=== PATIENT | male | born 1950 | race Caucasian/White ===

== ENCOUNTER 2017-02-12 20:37 | Emergency (ER) | payer BC, OTHER ==
[~2017-02-12] VITALS: Ht 185.4 cm; Wt 145.1 kg
[2017-02-12 20:40] VITALS: TEMP 36.6; Ht 185.4 cm; Wt 145.1 kg
[2017-02-12] MEDS ORDERED: CLIN300C2 PO (21:12)
[2017-02-12] MEDS ORDERED: MAGN400T6 PO (21:12)
[2017-02-12] MEDS ORDERED: PRAM1TAB47 PO (21:12)
[2017-02-12] MEDS ORDERED: SILD100T PO (21:12)
[2017-02-12] MEDS ORDERED: AMLO-114 PO (21:12)
[2017-02-12] MEDS ORDERED: CARB25TA12 PO (21:12)
[2017-02-12] MEDS ORDERED: AMAN100T2 PO (21:12)
[2017-02-12] MEDS ORDERED: HYZ/10015 PO (21:12)
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
[2017-02-12 22:52] VITALS: BP 138/77; PULSE 78; O2SAT 98
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
== END 2017-02-12 22:52 | disposition home or self-care (01) ==
LOC: C.EDB 20:39
DX: S00.83XA Contusion of other part of head, initial encounter (principal); S60.512A Abrasion of left hand, initial encounter; S50.312A Abrasion of left elbow, initial encounter; V43.52XA Car driver injured in collision with other type car in traffic accident, initial encounter; I10 Essential (primary) hypertension; G20 Parkinson's disease

== ENCOUNTER → 2017-02-13 | Outpatient (CLI) | payer BC, OTHER ==
[~2017-02-13] MED LIST: AMAN100T2 PO; AMLO-114 PO; CARB25TA12 PO; CLIN300C2 PO; HYZ/10015 PO; MAGN400T6 PO; PRAM1TAB47 PO; SILD100T PO
== END | disposition home or self-care (01) ==
LOC: C.RDSM 10:54
PROVIDERS: ATTEND Physical Medicine & Rehabilitation Sports Medicine
DX: M79.642 Pain in left hand (principal)

== ENCOUNTER → 2017-04-08 | Outpatient (CLI) | payer OTHER ==
[2017-04-08 12:36] LABS: BASO % 0.4 %; BASO ABS # 0.03 K/uL (0-0.2); EOS % 0.7 %; EOS ABS # 0.05 K/uL (0-0.5); HEMATOCRIT 46.4 % (42-52); IG# 0.01 K/uL (0.00-0.02); LYMPH % 22.9 %; LYMPH ABS # 1.76 K/uL (1.2-3.4); MEAN CELL VOLUME 88.5 fL (80-100); MEAN CORPUSCULAR HEMOGLOBIN 30.5 pg (25-34); MEAN CORPUSCULAR HGB CONC 34.5 g/dl (32-36); MEAN PLATELET VOLUME 9.9 fL (7.4-10.4); MONO % 9.3 %; MONO ABS # 0.71 K/uL (0.11-0.59); NEUT % 66.6 %; NEUT ABS # 5.11 K/uL (1.4-6.5); PLATELET COUNT 250 K/uL (130-400); RED CELL DISTRIBUTION WIDTH CV 13.9 % (11.5-14.5); RED CELL DISTRIBUTION WIDTH SD 45.2 fL (36.4-46.3); WHITE BLOOD COUNT 7.67 K/uL (4.8-10.8)
[2017-04-08 13:14] LABS: ALBUMIN 3.9 gm/dl (3.4-5.0); BLOOD UREA NITROGEN 14 mg/dl (7-18); CALCIUM 9.4 mg/dl (8.5-10.1); CARBON DIOXIDE 27 mmol/L (21-32); CREATININE 0.95 mg/dl (0.60-1.40); GLUCOSE 88 mg/dl (70-99); POTASSIUM 3.6 mmol/L (3.5-5.1); SODIUM 138 mmol/L (136-145)
[2017-04-08 13:17] LABS: ALKALINE PHOSPHATASE 71 U/L (45-117); ALT/SGPT 12 U/L (12-78); AST/SGOT 17 U/L (15-37); TOTAL PROTEIN 7.8 gm/dl (6.4-8.2)
== END | disposition home or self-care (01) ==
LOC: C.LABMFLN 10:45
PROVIDERS: ATTEND Family Medicine
DX: I10 Essential (primary) hypertension (principal); E83.42 Hypomagnesemia; E66.9 Obesity, unspecified

== ENCOUNTER → 2017-04-10 | Outpatient (CLI) | payer OTHER ==
--- NOTE | 2017-04-10 11:05 | DIAGNOSTIC IMAGING REPORT ---
C-SPINE ROUTINE 4 OR 5 VIEWS HISTORY: 66 years-old Male M54.2 Cervical pain (neck)[id number] acute neck pain with limited range of motion. Numbness of the right neck COMPARISON: None available TECHNIQUE: 5 views of the cervical spine FINDINGS: The seventh vertebral body is obscured by soft tissue on the lateral view. There is moderate intervertebral disc space narrowing at the C4-C5 and C5-C6 levels with multilevel endplate spurring and mild facet arthrosis. There is straightening of the normal cervical lordosis. Degenerative changes appear to result in at least mild right-sided bony foraminal stenosis at C5-C6. No acute fracture or subluxation identified. No prevertebral soft tissue swelling. Imaged lung apices appear unremarkable. IMPRESSION: 1. No acute fracture or subluxation. 2. Straightening of the cervical lordosis likely secondary to positioning or paraspinal muscle spasm. 3. Degenerative changes as above with at least mild right-sided bony foraminal stenosis at C5-C6. The above report was generated using voice recognition software. It may contain grammatical, syntax or spelling errors. Electronically signed by: Gregorio Carrillo M.D. 04/10/2017 11:04 AM Dictated Date/Time: 04/10/2017 11:01 AM
== END | disposition home or self-care (01) ==
LOC: C.RAD 10:20
PROVIDERS: ATTEND Family Medicine
DX: M54.2 Cervicalgia (principal)

== ENCOUNTER 2018-06-29 06:01 | Inpatient (IN) ==
--- NOTE | 2018-06-09 15:22 | PAT Medication Instructions ---
Medication Instructions Date of Service June 09, 2018 Home Medications amantadine HCl 100 mg PO TID amlodipine 2.5 mg PO QAM carbidopa-levodopa [Sinemet] 3 tab PO TID losartan-hydrochlorothiazide 1 tab PO QAM pramipexole 0.125 mg PO TID STOP taking 24 hours before surgery pramipexole 0.125 mg PO TID DO NOT take the morning of surgery losartan-hydrochlorothiazide 1 tab PO QAM Take morning of surgery With a small sip of water, OTHERWISE NOTHING TO EAT OR DRINK AFTER MIDNIGHT: amantadine HCl 100 mg PO TID amlodipine 2.5 mg PO QAM carbidopa-levodopa [Sinemet] 3 tab PO TID Take evening before surgery amantadine HCl 100 mg PO TID carbidopa-levodopa [Sinemet] 3 tab PO TID Other Notes If you have any questions please call us at [phone] or [phone] or [phone] or [phone]
--- NOTE | 2018-06-10 11:29 | Anesthesiology Consultation ---
Date of Service June 10, 2018 Assessment & Plan (1) Encounter for pre-operative examination: Chart Review Chart Review: Acceptable Risk for Surgery and Patient seen in Pre Admission Testing Teaching & Discussion Pre-Anesthesia Teaching/Discussion Notes: Instructed NPO after midnight before surgery,except medications with 15 cc of water. Medication instructions provided according to the PAT guidelines. History Surgery Operation Date: 06/29/18 07:30 Proposed Procedures p Robotic Laparoscopic Assisted Radical Retropubic Prostatectomy, Possible Open, Possible Pelvic Lymph Node Dissection, Possible Suprapubic Tube Placement - Eren Holland MD Height/Weight Height: 6 ft 1 in Weight: 142.9 kg Allergies Allergy/AdvReac Type Severity Reaction Status Date / Time No Known Allergies Allergy Verified 06/04/18 14:56 Medications Home Medications Medication Instructions Recorded Confirmed Last Taken amantadine HCl 100 mg PO TID 06/04/18 06/04/18 Unknown amlodipine 2.5 mg PO QAM 06/04/18 06/04/18 Unknown carbidopa-levodopa [Sinemet] 3 tab PO TID 06/04/18 06/04/18 Unknown losartan-hydrochlorothiazide 1 tab PO QAM 06/04/18 06/04/18 Unknown pramipexole 0.125 mg PO TID 06/04/18 06/04/18 Unknown Past Medical History Medical History Cervical disc disease Constipation Hearing deficit Hypertension Morbid obesity Osteoarthritis Parkinson's disease Prostate cancer DX 04/2018 Past Surgical History Surgical History History of knee replacement B/L Past Anesthesia History No Hx of Anesthesia Complications and No Family Hx of Anesthesia Complications History of PONV No Motion Sickness Screening History of Motion Sickness: No Social History Smoking Status: Never smoker Do You Dip or Chew Tobacco: Yes (1/4 CAN/DAY- ADVISED NOT TO CHEW AM DOS) Hx Alcohol Use: No Hx Substance Use: No Exercise / Class Metabolic Activity II 4-5 Yardwork/Stairs/Walk up hill Review of Systems Patient denies chest pain, shortness of breath, dyspnea on exertion, cough, wheezing, palpitations. Physical Exam Vital Signs VITALS BP 125/80 P 66 TEMP 97.7 SP02 95%RA RESP 16 PHYSICAL Full neck and c-spine range of motion Full TMJ range of motion. TMD 3 finger breaths Mallampati Score 3 Dentition: missing sides Lungs: clear throughout to auscultation Cardiac: regular rate and rhythm, no murmurs noted Spine: normal Carotid arteries: negative bruit Extremities: no edema Testing Electrocardiogram Date: 06/10/18 SR with PAC's at 66bpm. Chest X-Ray Date: 06/10/18 Findings: + NAD Small left basilar linear densities favor scarring or atelectasis. Laboratory Results 06/10/18 11:42 06/10/18 11:42 Blood Type A Negative 06/10/18 11:42 Antibody Screen NEGATIVE 06/10/18 11:42 Urine Color Yellow 06/10/18 11:42 Urine Appearance Clear (Clear) 06/10/18 11:42 Urine pH 6.5 (4.5-7.5) 06/10/18 11:42 Ur Specific [place] 1.024 (1.000-1.030) 06/10/18 11:42 Urine Protein Negative (Negative) 06/10/18 11:42 Urine Glucose (UA) Negative (Negative) 06/10/18 11:42 Urine Ketones Trace (Negative) H 06/10/18 11:42 Urine Nitrite Negative (Negative) 06/10/18 11:42 Ur Leukocyte Esterase Negative (Negative) 06/10/18 11:42
[2018-06-10 12:42] LABS: Basophils # (auto) 0.02 K/uL (0-0.2); Basophils % (auto) 0.2 %; Eosinophils # (auto) 0.04 K/uL (0-0.5); Eosinophils % (auto) 0.5 %; Hematocrit (blood only) 45.7 % (42-52); Hemoglobin 15.7 g/dL (14.0-18.0); Immature Granulocytes # (auto) 0.02 K/uL (0.00-0.02); Immature Granulocytes % (auto) 0.2 %; Lymphocytes # (auto) 1.71 K/uL (1.2-3.4); Lymphocytes % (auto) 19.5 %; Mean Corpuscular Hgb Conc 34.4 g/dL (32-36); Mean Corpuscular Volume 88.7 fL (80-100); Mean Platelet Volume 10.4 fL (7.4-10.4); Monocytes # (auto) 0.91 K/uL (0.11-0.59); Monocytes % (auto) 10.4 %; Neutrophils # (auto) 6.06 K/uL (1.4-6.5); Neutrophils % (auto) 69.2 %; Platelet Count 242 K/uL (130-400); RDW Coefficient of Variation 13.9 % (11.5-14.5); RDW Standard Deviation 45.2 fL (36.4-46.3); Red Blood Count 5.15 M/uL (4.7-6.1); White Blood Count 8.76 K/uL (4.8-10.8)
[2018-06-10 12:48] LABS: BUN Creatinine Ratio 19.2 (10-20); Calcium 9.6 mg/dl (8.5-10.1); Creatinine Clr Calc Pharmacy 103.3 ml/min; Est GFR (African American) 84.9; Est GFR (Non-African American) 73.3; Potassium 3.9 mmol/L (3.5-5.1)
[2018-06-10 12:49] LABS: Appearance Urine Clear (Clear); Bilirubin Urine Negative (Negative); Blood Urine Negative (Negative); Color Urine Yellow; Glucose Urine UA Negative (Negative); Ketones Urine Trace (Negative); Leukocyte Esterase Urine Negative (Negative); Nitrite Urine Negative (Negative); Protein Urine Negative (Negative); Specific Gravity Urine 1.024 (1.000-1.030); Urobilinogen Urine Negative (Negative); pH Urine 6.5 (4.5-7.5)
--- NOTE | 2018-06-10 13:04 | XRay Report ---
XR chest Pre-admission PA/Lat HISTORY: Preop. COMPARISON: Chest 02/12/2017. FINDINGS: Small left basilar linear densities favor scarring or atelectasis. The lungs are otherwise clear. No pleural effusions. No pneumothorax. The heart is normal in size. IMPRESSION: No acute process. Electronically signed by: Wesley Gibbs M.D. 06/10/2018 1:02 PM
[~2018-06-29 06:01] MED LIST changes: -AMAN100T2 PO; -AMLO-114 PO; -CARB25TA12 PO; +CEFAZOLIN 3000MG 65 ML IV SCH; -CLIN300C2 PO; +HEPARIN SOD 5,000 UNIT/0.5 ML VIAL SQ SCH; -HYZ/10015 PO; +LR 15ML/HR IV SCH; -MAGN400T6 PO; -PRAM1TAB47 PO; -SILD100T PO
--- OUTSIDE RECORDS SUMMARY | 2018-06-29 06:05 | External Medical Summary | Continuity of Care Document ---
:1950 Author Name Iraida Garcia, Provider Address Unavailable Unavailable , Care Team Providers Name Role Phone Dionte Oliveira DO Unavailable [email or web address] DIONTE OLIVEIRA Unavailable Unavailable Unavailable Unavailable Unavailable Problems Prostate cancer (185) (C61) HTN (hypertension) (401.9) (I10) Obesity (278.00) (E66.9) Hypomagnesemia (275.2) (E83.42) Right hip pain (719.45) (M25.551) Cervical pain (neck) (723.1) (M54.2) Hypokalemia (276.8) (E87.6) Dysplastic nevus (216.9) (D23.9) Skin cancer (173.90) (C44.90) Tobacco use disorder (305.1) (F17.200) Palpitations (785.1) (R00.2) Venous reflux (459.81) (I87.2) Tremor (781.0) (R25.1) Parkinson's disease (332.0) (G20) Osteoarthritis (715.90) (M19.90) Lumbar disc disease (722.93) (M51.9) History of knee replacement (V43.65) (Z96.659) Hearing difficulty (389.9) (H91.90) Elevated bilirubin (277.4) (R17) Cervical disc disease (722.91) (M50.90) Constipation (564.00) (K59.00) Elevated PSA (790.93) (R97.20) Allergies and Adverse Reactions No Known Drug Allergies (Allergy) Medications Losartan Potassium-HCTZ 100-25 MG Oral T ablet; TAKE 1 TABLET BY MOUTH ONCE A DAY DO Dionte Oliveira Start: 04-May-2018 Quantity: 30 Refills: 5 Carbidopa-Levodopa 25-100 MG Oral Tablet; TAKE 3 TABLET 3 ti mes daily Start: 07-Apr-2017 Refills: 0 Pramipexole Dihydrochloride 0.5 MG Oral Tablet; TAKE 1 TABLE T 3 TIMES DAILY. Start: 07-Apr-2017 Refills: 0 Amantadine HCl - 100 MG Oral Tablet; 1 tab twice a day Start: 07-Apr-2017 Refills: 0 amLODIPine Besylate 2.5 MG Oral Tablet; TAKE 1 TABLET BY MOUTH EVERY DAY DO Dionte Oliveira Start: 11-Feb-2018 Quantity: 30 Refills: 5 Procedures NM Bone Scan whole body Date: 13-May-2018 History of knee replacement Status: Comp leted Immunizations Fluzone High-Dose Intramuscular Suspension On: 10-Nov-2017 Lot #: [id number], SANOFI PASTEUR Family History Father Family history of cardiac disorder (V17.49) (Z82.49) Status: Active Family history of hypertension (V17.49) (Z82.49) Status: Act phuong Family history of myocardial infarction (V17.3) (Z82.49) Sta tus: Active Social History - Smoking Status Never smoker Plan of Treatment Planned Encounters Appointment; Dionte Oliveira DO Start: 22-Jul-2018 13:30 Reques t Planned Observations Planned Goals not documented Results CBC With DIFF Laboratory: [facility] [address] [place] [address] tel: 10-Jun-2018 11:42 WBC 8.76 K/uL Range: 4.8-10.8 K/u L RBC 5.15 {M/uL} Range: 4.7-6.1 M/uL HEMOGLOBIN 15.7 g/dL Range: 14.0-18.0 g /dL HEMATOCRIT 45.7 % Range: 42-52 % MCV 88.7 fL Range: 80-100 fL MCH 30.5 pg Range: 25-34 pg MEAN CORPUSCULAR HGB CONC 34.4 Range: 3 2-36 g/dL g/dL RED CELL DISTRIBUTION WIDTH SD Range: 3 6.4-46.3 fL 45.2 fL RED CELL DISTRIBUTION WIDTH CV Range: 1 1.5-14.5 % 13.9 % PLATELET COUNT 242 K/uL Range: 130-400 K/uL MEAN PLATELET VOLUME 10.4 fL Range: 7.4 -10.4 fL NEUT % 69.2 % Range: % LYMPH % 19.5 % Range: % MONO % 10.4 % Range: % EOS % 0.5 % Range: % BASO % 0.2 % Range: % IG% 0.2 % Range: % Comments: IG paramet er reflects the combination of Metas, Myelos andPromyelocytes. Neutrophils (Auto) 6.06 K/uL Range: 1. 4-6.5 K/uL LYMPH ABS # 1.71 K/uL Range: 1.2-3.4 K/ uL MONO ABS # 0.91 K/uL (above high Range: 0.11-0.59 K/uL threshold) EOS ABS # 0.04 K/uL Range: 0-0.5 K/uL BASO ABS # 0.02 K/uL Range: 0-0.2 K/uL IG# 0.02 K/uL Range: 0.00-0.02 K/ uL Basic Metabolic Panel Laboratory: [facility] [address] [facility] [address] tel: 10-Jun-2018 11:42 SODIUM 138 mmol/L Range: 136-145 mmol /L POTASSIUM 3.9 mmol/L Range: 3.5-5.1 mmo l/L CHLORIDE 105 mmol/L Range: 98-107 mmol/ L CARBON DIOXIDE 31 mmol/L Range: 21-32 m mol/L ANION GAP 2.0 (below low Range: 3-11 threshold) BLOOD UREA NITROGEN 20 mg/dl Range: 7-1 8 mg/dl (above high threshold) CREATININE 1.06 mg/dl Range: 0.6-1.4 mg /dl Estimated Creatinine Clearance Range: m l/min 103.3 ml/min Comments: Est. Creat inine Clearance (Mod Cockcroft-Gault) for pharmacydosing purposes. Estimated GFR () Comment s: Units: ml/min per 84.9 1.73 meters squaredT he estimated GFR (CKD-E PI equation) has not be en validatedfor inpatie nt settings and may not be an accurate reflectiono f renal function in critical ly ill patients or those withrapidly changing renal function (e.g. VIMAL). Estimated GFR (Non- Comments: Uni ts: ml/min per Mexican) 73.3 1.73 meters squaredT he estimated GFR (CKD-E PI equation) has not be en validatedfor inpatie nt settings and may not be an accurate reflectiono f renal function in critical ly ill patients or those withrapidly changing renal function (e.g. VIMAL). BUN/CREATININE RATIO 19.2 Range: 10-20 GLUCOSE 82 mg/dl Range: 70-99 mg/dl CALCIUM 9.6 mg/dl Range: 8.5-10.1 mg/ dl Urine rflx Microscopic Laboratory: [facility] [address]: [address] [facility] [address] tel: 10-Jun-2018 11:42 Urine Color Yellow Urine Appearance Clear Range: Clear Urine Specific [place] 1.024 Range: 1.0 00-1.030 Urine Ph 6.5 Range: 4.5-7.5 Urine Protein(Dipstick) Negative Range: Negative Urine Glucose(Dipstick) Negative Range: Negative Urine Ketones Trace (Abnormal) Range: N egative Urine Bilirubin Negative Range: Negativ e URINE BLOOD HGB Negative Range: Negativ e Urobilinogen Negative Range: Negative Nitrite Urine Negative Range: Negative Urine Leukocyte Esterase Negative Range: Negative X-Ray Chest Preadm Laboratory: [facility] Diagnostic Testing Imaging [address] [facility] 10-Jun-2018 13:01 X-Ray Chest Preadm Testing (CXRPRE) [facility], [place] [phone] XRay Report Patient: ARELI EDWARDS Admit Date: MR#: [id number] Address1: [address] [place] [address] Acct ID:[id number] Address2: Date: 1950 [facility] [place] [address] Age: 67 Location: [facility] Sex: M Room/Bed: Att Phy: Viktor Holland MD Diagnos is: Prostate Cancer Tiffanie Phy: Dionte Oliveira MD Service Date: Fam Phy: Interpreting Phy: Wesley earl MD Admit Phy: Ordering Phy: Viktor Holland MD cc: XR chest Pre-admission PA/Lat HISTORY: Preop. COMPARISON: Chest 02/12/2017. FINDINGS: Small left basilar linear densities favor scarring or atelectasis. The lungs are otherwise clear. No pleural effusions. No pneumothorax. The heart is normal in size. IMPRESSION: No acute process. Electronically signed by: Wesley Gibbs M.D. 06/10/2018 1:02 PM Dictated: 06/10/18 1301 Transcribed: 06/10/18 1301 Urine Culture 10-Jun-2018 11:42 URINE CULTURE CATH ORDERED PROCEDURE : Urine Culture; Speciment : Urine,Clean Catch Urine Culture : No growth - less than 1,000 colonies/mL. Encounters Appointment; Viktor Holland M.D. 31-May-2018 9:50 Encounter Diagnosis: Problem not documented Appointment; Viktor Holland M.D. 14-May-2018 13:40 Encounter Diagnosis: Problem not documented Appointment; Kelechi Fisher M.D. 13-May-2018 14:20 Encounter Diagnosis: Problem not documented Appointment; Kelechi Fisher M.D. 06-May-2018 11:20 Encounter Diagnosis: Problem not documented Appointment; Urology, US probe only 06-May-2018 11:20 Encounter Diagnosis: Problem not documented Appointment; Urology, Room 8 06-May-2018 11:10 Encounter Diagnosis: Problem not documented Appointment; Kelechi Fisher M.D. 24-Mar-2018 13:40 Encounter Diagnosis: Problem not documented Appointment; Dionte Oliveira DO 16-Mar-2018 13:00 Encounter Diagnosis: Problem not documented Appointment; Dionte Oliveira DO 10-Nov-2017 13:00 Encounter Diagnosis: Problem not documented Appointment; Dionte Oliveira DO 11-Aug-2017 13:00 Encounter Diagnosis: Problem not documented Appointment; Dionte Oliveira DO 08-Apr-2017 9:30 Encounter Diagnosis: Problem not documented Appointment; Dionte Oliveira DO 22-Jul-2018 13:30 Encounter Diagnosis: Problem not documented
--- NOTE | 2018-06-29 07:02 | History & Physical Bridge Note ---
Date of Service June 29, 2018 History & Physical Bridge Note I have examined the patient, reviewed the History & Physical and in the interval since the performance of the History & Physical I have noted the following changes of clinical significance: no changes noted
[2018-06-29] MEDS ORDERED: BUPIVACAINE 0.5 % 5 MG/1 ML MPF 30ML VIAL ONE (07:15)
[2018-06-29] MEDS ORDERED: MIDAZOLAM HCL 1 MG/ML 2ML VIAL ONE (07:18)
[2018-06-29] MEDS ORDERED: PROPOFOL IV EMULSION 10 MG/ML 20 ML VIAL IV ONE (07:18)
[2018-06-29] MEDS ORDERED: DEXAMETHASONE SOD INJ 4 MG/ML VIAL ONE (07:18)
[2018-06-29] MEDS ORDERED: fentaNYL citrate 100 MCG/2 ML VIAL ONE ×2 (07:18→08:37)
[2018-06-29] MEDS ORDERED: NEOSTIGMINE METHYLSULFATE 5 MG/5 ML SYR ONE (07:18)
[2018-06-29] MEDS ORDERED: GLYCOPYRROLATE 0.2 MG/ML VIAL ONE (07:18)
[2018-06-29] MEDS ORDERED: ONDANSETRON INJ 2 MG/ML 2 ML VIAL ONE (07:18)
[2018-06-29] MEDS ORDERED: LIDOCAINE HCL 2% 2 ML VIAL/AMP(20MG/ML) INFIL ONE (07:18)
[2018-06-29] MEDS ORDERED: BELLADONNA/OPIUM SUPP 60 MG SUPP PR ONE (07:19)
[2018-06-29] MEDS ORDERED: HYDROmorphone INJ 2 MG/ML SYR/VIAL ONE (08:37)
[2018-06-29] MEDS ORDERED: BELLADONNA/OPIUM SUPP 60 MG SUPP PR PRN (10:06)
[2018-06-29] MEDS ORDERED: CISATRACURIUM BESYLATE IV SOLN 2 MG/ML 10 ML VIAL IV ONE (10:53)
[2018-06-29] MEDS ORDERED: FLOSEAL HEMOSTATIC MATRIX 10ML TOP ONE (12:08)
[2018-06-29] MEDS ORDERED: PROMETHAZINE HCL 12.5 MG in SODIUM CHLORIDE 0.9% 50 ML IV PRN (12:22)
[2018-06-29] MEDS ORDERED: HYDROmorphone INJ 1 MG/ML SYRINGE IV PRN (12:22)
[2018-06-29] MEDS ORDERED: LABETALOL HCL IV 5 MG/ML 20ML IV PRN (12:22)
[2018-06-29] MEDS ORDERED: FLUMAZENIL 0.1 MG/1 ML 10 ML VIAL IV PRN (12:22)
[2018-06-29] MEDS ORDERED: ATROPINE SULFATE 0.1 MG/ML 10ML SYR IV PRN (12:22)
[2018-06-29] MEDS ORDERED: ONDANSETRON INJ 2 MG/ML 2 ML VIAL IV PRN ×2 (12:22→14:17)
[2018-06-29] MEDS ORDERED: ePHEDrine sulfate 50 MG/ML AMP IV PRN (12:22)
[2018-06-29] MEDS ORDERED: NALOXONE HCL 0.4 MG/1 ML VIAL/CARP IV PRN (12:22)
--- NOTE | 2018-06-29 12:57 | Operative Report ---
Post Operative Report Pre & Post Diagnosis Operation Date: 06/29/18 07:45 Pre-Op Diagnosis: Prostate Cancer Post-Op Diagnosis: Prostate Cancer Procedure Operation Date: 06/29/18 07:45 Actual Procedures p Robotic Assisted Laparoscopic Prostatectomy, Pelvic Lymph Node Dissection(Not Applicable); lysis of adhesions- Eren Holland MD Surgeon Viktor Holland MD [employer] Laborer Vickie Snyder Estimated Blood Loss 150 Findings Consistent with Post-Op Diagnosis Specimens 1. periprostatic fat 2. R pelvic lymph nodes (frozen and permanent) 3. L pelvic lymph nodes 4. prostate and seminal vesicles 5. apex of prostate (left) Description of Procedure The patient was identified in the preoperative holding area, appropriate informed consents were reviewed and completed, and he was transported to the operating suite. Subcutaneous heparin was administered in the pre-operative holding area. Upon arrival in the operating suite, he received appropriate antibiotics and general anesthesia. He was positioned in dorsal lithotomy, a B&O suppository was inserted after digital rectal exam, and he was prepped and draped in standard fashion. A Page catheter was inserted in the sterile field. A Veress needle was passed per umbilicus with uniform insufflation of the abdomen to 15mmHg. He was placed in steep Trendelenburg position. A periumbilical incision was then made to accommodate a 12mm Visiport with 10mm 0degree laparoscope. Inspection of the abdomen was carried out, and there was no evidence of traumatic entry or injury secondary to the Veress needle. After confirming a clear anterior abdominal wall, ports were subsequently placed in standard robotic prostatectomy fashion without incident. Of note, he has fairly extensive adhesive disease within the deep pelvis, walling off the pouch of Lang. To begin the robotic portion of the case, I began by performing a robotic lysis of adhesion, choosing to incise all adhesions sharply with minimal to no use of cautery. I was able to begin on the left lateral aspect of the descending colon/sigmoid, and progressed down towards the pelvis. I worked for approximately 35 to 40 minutes and did not entirely visualize the true pouch of Lang, but freed enough space to be able to perform the remainder of the surgery. Of note, I did not perform a posterior dissection secondary to the adhesive disease, and rn internal medicine perform a traditional anterior dissection of the bladder and prostate. The medial umbilical ligaments were then controlled with bipolar electrocautery just inferior to the umbilicus. Following cauterization, they were divided utilizing monopolar cautery. A peritoneal incision was carried from this location to the medial aspect of the internal inguinal rings bilaterally with care to avoid opening through the ring. This incision was concluded when the vas deferens was reached. Dissection of the bladder and prostate off of the posterior aspect of the pubic arch was completed allowing full visualization of the prostate. The fat overlying the prostate was removed en bloc and passed off the table as a specimen labeled "periprostatic fat". The endopelvic fascia was cleared during this portion of the procedure, and subsequently opened - first on the right and then the left. The incision through the endopelvic fascia began near the prostate-bladder junction and was carried to the apex with extreme care to preserve all lateral levator musculature as well as the periurethral musculature and sphincter complex. The puboprostatic ligaments were thinned slightly bilaterally before placing a 0-Vicryl figure of 8 stitch around the DVC. The lymph node dissection was then conducted. External iliac vessels were identified on the pelvic side wall. The packet of fat and lymphatic tissue that resides just under the iliac vein was elevated and off of the vein with a split and roll technique. The packet was dissected laterally to the c ircumflex vein and distally to the obturator nerve which was preserved. The proximal aspect of the packet was carried towards the bifurcation of the iliac vessels. A combination of monopolar and bipolar cautery were used to assist with control. Clips were placed at the proximal and distal aspects of the packet prior to transection. After completing the dissection on both sides, the packets were collected and passed off of the table as specimens labeled "pelvic lymph nodes". Of note, given his preoperative pathology and some relatively firm nodes on the right, I elected to send one node (right side) for frozen section analysis. Results ultimately were relayed as benign lymph node - no cancer and in turn I did not extend my lymph node dissection further. My attention then returned to the prostate, with identification of the bladder neck aided by gentle traction on the Page catheter and lateral to medial pressure at the presumed level of the bladder neck with the robotic instruments. An anterior cystotomy was made, the Page balloon deflated and the catheter guided through the incision to allow anterior retraction. I attempted to preserve maximal bladder neck musculature as I circumferentially dissected around the bladder neck. After incision through the posterior aspect of the mucosa, the dissection was carried through detrusor muscle until the bilateral ampullae of the vasa were identified. I cleared a length of 3-4cm before transecting the vasa and then circumferentially dissecting both SV's. An incision in the lateral prostatic fascia was then made bilaterally to facilitate control of the vascular pedicles. The pedicles were each controlled with a series of Weck clips. The neurovascular bundles were identified with a cautious approach to nerve preservation, particularly on the patient's left. The apical attachments of the prostate were remaining at that stage. The DVC was divided with bipolar electrocautery. Shamika-prostatic tissue incised with sharp dissection and monopolar cautery. Maximal urethral length was preserved before dividing the urethra sharply. The prostate was entirely freed at that point, and collected in an EndoCatch bag before being moved out of the field of vision. Hemostasis was confirmed and anastomosis of the bladder and urethra was completed utilizing a double armed V- Lock stitch. A new Page catheter was inserted and the anastomosis tested with irrigation. There was no evidence of leak. FloSeal coagulant was placed around the anastomosis. The robot was undocked, the specimen extracted through expansion of the shamika- umbilical camera port. The fascia was closed with a series of 0-PDS figure of 8 stitches. The right office clerk assistant port was closed in two layers - with a figure of 8 0-Vicryl to reapproximate the fascia followed by 4-0 Monocryl to close the skin. Monocryl was used to close all other skin incisions. All wounds were dressed with Dermabond. The case was concluded and the patient taken to the PACU in stable condition. Vickie Snyder assisted throughout the surgery from incision to closure. I attest to the content of the Intraoperative Record and any orders documented therein. Any exceptions are noted below.
[2018-06-29 13:29] LABS: BUN Creatinine Ratio 13.4 (10-20); Calcium 8.5 mg/dl (8.5-10.1); Creatinine Clr Calc Pharmacy 86.9 ml/min; Est GFR (Non-African American) 61.2; Potassium 3.5 mmol/L (3.5-5.1)
--- NOTE | 2018-06-29 13:41 | Anesthesiology Progress Note ---
Date of Service June 29, 2018 Anesthesia Post Procedure Vital Signs Vital Signs: Temp Pulse Pulse Resp BP Pulse Ox 06/29/18 13:35 81 16 120/68 95 06/29/18 13:25 36.4 C L 82 15 111/82 93 06/29/18 13:15 78 14 109/68 95 06/29/18 13:05 73 11 L 96/62 L 98 06/29/18 12:55 77 11 L 121/56 L 97 06/29/18 12:45 36.8 C 76 14 110/57 L 93 06/29/18 06:34 36.7 C 72 18 111/87 96 Transfer of Care Handoff Completed per policy Notes Mental Status: alert / awake / arousable Patient Amnestic to Procedure: Yes Nausea / Vomiting: adequately controlled Pain: adequately controlled Airway Patency, RR, SpO2: stable & adequate BP & HR: stable & adequate Hydration State: stable & adequate Anesthetic Complications: no major complications apparent
[2018-06-29 13:58] LABS: Eosinophils # (auto) 0.01 K/uL (0-0.5); Eosinophils % (auto) 0.1 %; Hematocrit (blood only) 44.3 % (42-52); Hemoglobin 14.9 g/dL (14.0-18.0); Immature Granulocytes # (auto) 0.03 K/uL (0.00-0.02); Immature Granulocytes % (auto) 0.2 %; Lymphocytes # (auto) 0.46 K/uL (1.2-3.4); Lymphocytes % (auto) 3.8 %; Mean Platelet Volume 10.1 fL (7.4-10.4); Monocytes % (auto) 0.8 %; Neutrophils # (auto) 11.49 K/uL (1.4-6.5); Neutrophils % (auto) 95.1 %; Platelet Count 234 K/uL (130-400); RDW Standard Deviation 45.6 fL (36.4-46.3); Red Blood Count 4.98 M/uL (4.7-6.1); White Blood Count 12.09 K/uL (4.8-10.8)
[2018-06-29 14:02] LABS: Mean Corpuscular Hgb Conc 33.6 g/dL (32-36)
[2018-06-29] MEDS ORDERED: OXYCODONE HCL IR 5 MG TAB (IMMEDIATE RELEASE) PO PRN ×2 (14:17)
[2018-06-29] MEDS ORDERED: MoRPHine SULFATE 4 MG/ML 1 ML CARP\\VIAL IV PRN (14:17)
[2018-06-29] MEDS ORDERED: ACETAMINOPHEN 1,000 MG/100 ML VIAL IV PRN (14:17)
[2018-06-29] MEDS: LACTATED RINGER'S 1,000 ML IV SCH ×2 (15:58→19:44)
[2018-06-29] MEDS: CEFAZOLIN 2000MG 2,000 MG/15 ML SYR IV SCH ×2 (16:35→23:30)
[2018-06-29] MEDS: AMANTADINE HCL 100 MG CAPSULE PO SCH ×2 (16:35→20:50)
[2018-06-29] MEDS: CARBIDOPA/LEVODOPA 25/100MG TAB PO SCH ×2 (16:36→20:51)
[2018-06-29] MEDS: PRAMIPEXOLE DIHYDROCHLO 0.25 MG TAB PO SCH ×2 (16:36→20:49)
[2018-06-29 17:02] LABS: Prothrombin Time 10.3 Seconds (9.0-12.0)
[2018-06-29] MEDS: FAMOTIDINE 20 MG in SYRINGE 3 ML IV SCH (17:55)
[2018-06-29] MEDS: DOCUSATE SODIUM 100 MG CAP PO SCH (20:49)
[2018-06-29] MEDS: HEPARIN SOD 5,000 UNIT/0.5 ML VIAL SQ SCH (20:53)
[2018-06-30] MEDS: LACTATED RINGER'S 1,000 ML IV SCH (03:24)
[2018-06-30] MEDS: FAMOTIDINE 20 MG in SYRINGE 3 ML IV SCH (05:26)
[2018-06-30 07:43] LABS: Hematocrit (blood only) 41.9 % (42-52); Hemoglobin 14.5 g/dL (14.0-18.0); Immature Granulocytes # (auto) 0.04 K/uL (0.00-0.02); Immature Granulocytes % (auto) 0.3 %; Lymphocytes # (auto) 1.08 K/uL (1.2-3.4); Mean Corpuscular Hgb Conc 34.6 g/dL (32-36); Mean Platelet Volume 9.8 fL (7.4-10.4); Monocytes # (auto) 0.99 K/uL (0.11-0.59); Monocytes % (auto) 8.2 %; Neutrophils % (auto) 82.5 %; Platelet Count 239 K/uL (130-400); RDW Coefficient of Variation 14.2 % (11.5-14.5); RDW Standard Deviation 46.2 fL (36.4-46.3); Red Blood Count 4.71 M/uL (4.7-6.1); White Blood Count 12.01 K/uL (4.8-10.8)
[2018-06-30] MEDS: DOCUSATE SODIUM 100 MG CAP PO SCH (08:18)
[2018-06-30] MEDS: AMANTADINE HCL 100 MG CAPSULE PO SCH (08:18)
[2018-06-30] MEDS: CARBIDOPA/LEVODOPA 25/100MG TAB PO SCH (08:18)
[2018-06-30] MEDS: HEPARIN SOD 5,000 UNIT/0.5 ML VIAL SQ SCH (08:18)
[2018-06-30] MEDS: PRAMIPEXOLE DIHYDROCHLO 0.25 MG TAB PO SCH (08:19)
[2018-06-30 08:24] LABS: BUN Creatinine Ratio 13.1 (10-20); Calcium 8.5 mg/dl (8.5-10.1); Creatinine Clr Calc Pharmacy 95.4 ml/min; Est GFR (African American) 79.5; Est GFR (Non-African American) 68.6
--- NOTE | 2018-06-30 08:36 | Urology Progress Note ---
Date of Service June 30, 2018 Assessment & Plan (1) Prostate cancer: Postop day #1 status post robotic prostatectomy Doing extremely well at this stage Continue ambulation Continue clear liquids as he has some extensive adhesions in his abdomen DC home later today Follow-up next week for voiding trial Subjective Do extremely well overnight Was ambulatory Tolerating his catheter Denies any significant pain Not particularly hungry, but no nausea, no bloating, tolerating clear liquids Review of Systems Review of Systems: All systems reviewed & are unremarkable except as noted in HPI & below Physical Exam Physical Exam: Incisions appropriate Minimal bruising Gauze pad over the right lateral incision in the midline incision for secondary to minimal drainage Urine is clear Results & Data Vital Signs (Past 12 Hours) Vital Signs Temp Pulse Resp BP Pulse Ox 06/30/18 07:58 36.5 C 68 16 126/76 93 06/30/18 04:12 36.5 C 71 15 126/71 93 06/29/18 23:30 36.7 C 76 16 120/72 93
[2018-06-30] MEDS: CEFAZOLIN 2000MG 2,000 MG/15 ML SYR IV SCH (08:53)
[2018-06-30] MEDS ORDERED: LOSARTAN/HCTZ 50/12.5MG TAB PO SCH (09:00)
[2018-06-30] MEDS ORDERED: AMLODIPINE BESYLATE 5 MG TAB PO SCH (09:00)
--- NOTE | 2018-06-30 09:50 | Anesthesiology Progress Note ---
Date of Service June 30, 2018 Anesthesia Post Procedure Vital Signs Vital Signs: Temp Pulse Pulse Resp BP Pulse Ox 06/30/18 07:58 36.5 C 68 16 126/76 93 06/30/18 04:12 36.5 C 71 15 126/71 93 06/29/18 23:30 36.7 C 76 16 120/72 93 06/29/18 20:16 36.8 C 99 H 17 116/72 91 06/29/18 16:59 36.3 C L 76 18 157/78 H 95 06/29/18 16:17 36.5 C 72 18 149/76 H 97 06/29/18 14:33 66 16 137/76 99 06/29/18 13:55 36.3 C L 16 123/71 97 06/29/18 13:35 81 16 120/68 95 06/29/18 13:25 36.4 C L 82 15 111/82 93 06/29/18 13:15 78 14 109/68 95 06/29/18 13:05 73 11 L 96/62 L 98 06/29/18 12:55 77 11 L 121/56 L 97 06/29/18 12:45 36.8 C 76 14 110/57 L 93 Notes Mental Status: alert / awake / arousable and participated in evaluation Patient Amnestic to Procedure: Yes Nausea / Vomiting: adequately controlled Pain: adequately controlled Airway Patency, RR, SpO2: stable & adequate BP & HR: stable & adequate Hydration State: stable & adequate Anesthetic Complications: no major complications apparent and Pt Satisfied with anesthetic care
--- NOTE | 2018-07-02 07:18 | Discharge Summary ---
Date of Service July 02, 2018 Admission HPI Per Admitting Provider Patient admitted for prostate cancer and subsequent prostatectomy Principal Diagnosis Prostate cancer Discharge Data Allergies Allergy/AdvReac Type Severity Reaction Status Date / Time No Known Allergies Allergy Verified 06/29/18 06:26 Procedures Performed Operation Date: 06/29/18 07:45 Actual Procedures p Robotic Assisted Laparoscopic Prostatectomy, Pelvic Lymph Node Dissection(Not Applicable) - Eren Holland MD Hospital Course (1) Prostate cancer: Patient with prostate cancer here for prostatectomy, the surgery was uneventful as dictated previously in the operative report. Postoperatively he progressed extremely well. Minimal pain, he was ambulatory on the day of surgery. He was tolerating a diet. His urine cleared appropriately. He was ultimately discharged home on postoperative day #1 in stable condition. Total Time Total Time Spent Total Time Spent (In Minutes): 15 Total Time Includes: Examination of the Patient and Discharge Planning Discharge Plan Discharge Items Patient Disposition: Home - Self-Care Reason For Visit: Prostate Cancer Discharge Diagnosis: Prostate cancer Discharge Goals: Improve disease control and Therapeutic intervention Activity: Per 'Additional Instructions' section Lifting: No more than 10 pounds Bathing Comment: Shower tomorrow, do not scrub at surgical glue. No soaking in tub. Sexual Activity: Wait until after follow-up appointment Exercise/Sports: None Exercise Comment: Walking and stairs in your home are OK. Driving/Machine Use Comment: No driving while taking narcotic pain medication. Non-emergency contact: Urologist Call non-emergency contact if: you have any medication questions, your pain is concerning for you, your temperature is above 101, your wound has increased redness, your wound has increased drainage and your wound pain has increased Follow-up/Referrals: Dionte Rodriges DO [Primary Care Provider] - Diet: Heart Healthy Diet Comment: Continue liquids and gradually increase to soft foods as tolera leena. Addtl Provider Instructions: Please keep all follow up appointments at Urology office as scheduled. Our phone number is [phone] if you have any questions or concerns. Pain: Take pain medication (Tylenol #3)every 6 hours as needed. Bowels: Take stool softener (Colace) twice daily x 2 weeks, then as needed for constipation. Antibiotic: Take antibiotic (Cipro) twice daily, beginning the day before your catheter removal. Finish all tablets as prescribed. Page catheter: OK to shower with catheter in place. Clean twice daily with mild soap and water. Call office number above if this gets displaced for any reason or if not draining. Prescriptions: New acetaminophen-codeine [Tylenol-Codeine #3] 300-30 mg tablet 1 tab PO Q6H PRN (Reason: pain) Qty: 10 RF: 0 ciprofloxacin HCl [Cipro] 500 mg tablet 500 mg PO BID Qty: 6 RF: 0 docusate sodium [Colace] 100 mg capsule 100 mg PO BID PRN (Reason: constipation) Qty: 60 RF: 0 Continued amantadine HCl 100 mg Tablet 100 mg PO TID RF: 0 amlodipine 2.5 mg Tablet 2.5 mg PO QAM RF: 0 losartan-hydrochlorothiazide 100-25 mg Tablet 1 tab PO QAM RF: 0 pramipexole 0.25 mg Tablet 0.125 mg PO TID RF: 0 carbidopa-levodopa [Sinemet] 25-100 mg Tablet 3 tab PO TID RF: 0 Stand-Alone Forms: [facility] Discharge Orders: Discharge Order (Routine); Ordered 06/30/18 Ordered By: Vickie Snyder Admission Data Admit Date/Time: 06/29/18 12:35 Attending Provider: Eren Holland Admit Provider: Eren Holland Primary Care Provider: Dionte Rodriges Service: Surgical Services Other Interventions: Discharge Summary Assessment (RN) Last Done: 06/30/18 11:33 DC Date/Time DO NOT enter until pt leaves facility: 06/30/18 13:36
== END 2018-06-30 13:36 | disposition home or self-care (01) | DRG 707 ==
LOC: ASU 06:01 → 3N 12:35

== ENCOUNTER 2020-06-05 14:00 | Inpatient (IN) ==
[2020-06-05 16:34] LABS: Influenza A virus by PCR Negative (Neg); Influenza B virus by PCR Negative (Neg); RSV by PCR Negative (Neg); SARS CoV2 RNA(COVID-19) InHosp NEGATIVE (Negative)
[2020-06-05] MEDS ORDERED: diphenhydrAMINE Capsule 25 MG CAP PO PRN (17:56)
[2020-06-05] MEDS ORDERED: MAGNESIUM HYDROXIDE SUSP 30 ML UDC PO PRN (17:56)
[2020-06-05] MEDS ORDERED: ACETAMINOPHEN 1,000 MG/100 ML VIAL IV PRN (17:56)
[2020-06-05] MEDS ORDERED: traMADol HCL 50 MG TABLET PO PRN (17:56)
[2020-06-05] MEDS ORDERED: NALOXONE HCL 0.4 MG/1 ML VIAL/CARP IV PRN (17:56)
[2020-06-05] MEDS ORDERED: ALUMINUM/MAGNESIUM SUSP 30 ML UDC PO PRN (17:56)
[2020-06-05] MEDS ORDERED: HYDROmorphone INJ 0.5 MG/0.5 ML SYR IV PRN (17:56)
[2020-06-05] MEDS ORDERED: METOCLOPRAMIDE HCL INJ 5 MG/ML 2 ML VIAL IV PRN (17:56)
[2020-06-05] MEDS ORDERED: ACETAMINOPHEN 500 MG TAB PO PRN (17:56)
[2020-06-05] MEDS ORDERED: LORazepam 0.5 MG/1 ML VIAL IV PRN (17:56)
[2020-06-05] MEDS ORDERED: oxyCODONE HCL IR 5 MG TAB (IMMEDIATE RELEASE) PO PRN (17:56)
[2020-06-05] MEDS ORDERED: HYDROmorphone INJ 1 MG/ML SYRINGE IV PRN (17:56)
[2020-06-05] MEDS ORDERED: LORazepam 0.5 MG TAB PO PRN (17:56)
[2020-06-05] MEDS ORDERED: hydrOXYzine HCl 25 MG TAB PO PRN (17:56)
[2020-06-05] MEDS: LACTATED RINGER'S 1,000 ML IV SCH (18:39)
[2020-06-05 19:09] LABS: Basophils # (auto) 0.01 K/uL (0-0.2); Basophils % (auto) 0.1 %; Hematocrit (blood only) 41.8 % (42-52); Hemoglobin 14.3 g/dL (14.0-18.0); Immature Granulocytes # (auto) 0.01 K/uL (0.00-0.02); Immature Granulocytes % (auto) 0.1 %; Lymphocytes # (auto) 0.38 K/uL (1.2-3.4); Lymphocytes % (auto) 5.5 %; Mean Corpuscular Hemoglobin 29.4 pg (25-34); Mean Corpuscular Hgb Conc 34.2 g/dL (32-36); Mean Platelet Volume 9.1 fL (7.4-10.4); Monocytes % (auto) 1.5 %; Neutrophils # (auto) 6.39 K/uL (1.4-6.5); Neutrophils % (auto) 92.8 %; Platelet Count 306 K/uL (130-400); RDW Coefficient of Variation 15.5 % (11.5-14.5); RDW Standard Deviation 49.1 fL (36.4-46.3); Red Blood Count 4.86 M/uL (4.7-6.1); White Blood Count 6.89 K/uL (4.8-10.8)
[2020-06-05 19:26] LABS: Albumin Level 3.6 gm/dl (3.4-5.0); BUN Creatinine Ratio 21.3 (10-20); Calcium 9.1 mg/dl (8.5-10.1); Creatinine Clr Calc Pharmacy 74.6 ml/min; Est GFR (African American) 63.1; Est GFR (Non-African American) 54.4; Potassium 4.2 mmol/L (3.5-5.1)
[2020-06-05 19:29] LABS: Albumin Globulin Ratio 0.9 (0.9-2); Globulin 4.2 gm/dl (2.5-4.0); Total Protein 7.8 gm/dl (6.4-8.2)
[2020-06-05] MEDS: AMANTADINE HCL 100 MG CAPSULE PO SCH (20:13)
[2020-06-05] MEDS: CARBIDOPA/LEVODOPA 25/100MG TAB PO SCH (20:13)
[2020-06-05] MEDS: BACLOFEN 10 MG TAB PO SCH (20:13)
[2020-06-05] MEDS: PRAMIPEXOLE DIHYDROCHLO 0.25 MG TAB PO SCH (20:14)
[2020-06-05] MEDS ORDERED: DOCUSATE SODIUM/SENNA 50/8.6MG TAB PO SCH (21:00)
[2020-06-06] MEDS: LACTATED RINGER'S 1,000 ML IV SCH (04:08)
--- NOTE | 2020-06-06 07:30 | History & Physical Bridge Note ---
Date of Service June 06, 2020 History & Physical Bridge Note I have examined the patient, reviewed the History & Physical and in the interval since the performance of the History & Physical I have noted the following changes of clinical significance: no changes noted
--- NOTE | 2020-06-06 07:31 | History & Physical Report ---
Date of Service June 06, 2020 Assessment & Plan (1) Lumbar back pain with radiculopathy affecting lower extremity: Admission and Anticipated Discharge Date Admission Date: June 05, 2020 Revision decompression fusion L5-S1 with possible iliac bolts History of Present Illness Chief Complaint: Severe back and bilateral leg pain Primary Care Provider: Dionte Rodriges DO This is a 69-year-old male well-known to me the presents with severe decline in status with marked back and bilateral leg pain inability to ambulate without a walker. 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 He subsequently here for urgent revision surgery L5-S1. Allergies Allergy/AdvReac Type Severity Reaction Status Date / Time No Known Allergies Allergy Verified 06/05/20 16:54 Home Medications Medication Instructions Recorded Confirmed Type amantadine HCl 100 mg tablet 100 mg PO TID #90 tab 10/13/18 02/27/20 Rx olmesartan 20 1 tab PO DAILY #90 tab 06/30/19 02/27/20 Rx mg-hydrochlorothiazide 12.5 mg tablet baclofen 5 mg PO BID #30 tab 06/01/20 Rx oxycodone 5 mg PO Q8H PRN #20 tab 06/01/20 Rx carbidopa-levodopa [Sinemet] 2 tab PO BID 06/05/20 06/05/20 History pramipexole 0.25 mg PO TID 06/05/20 06/05/20 History Past Med/Surg History Medical History (Updated 04/12/20 @ 15:02 by Dionte Rodriges DO) Cervical disc disease Degenerative disc disease Hearing deficit WEARS 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 Hypertension Osteoarthritis Parkinson's disease Prostate cancer DX 04/2018. PATIENT HAD 39 TREATMENTS OF RADIATION AFTER THE PROSTATECTOMY. Radiculopathy BLLE RADICULOPATHY AND NUMBNESS. UNABLE TO STAND FOR EVEN SHORT PERIODS OF TIME. HAS TO CURRENTLY HELP HIM WITH MOST OF HIS ADL'S D/T BACK. Surgical History (Updated 07/25/19 @ 22:54 by Dionte Rodriges DO) History of knee replacement B/L S/P colonoscopy S/P prostatectomy 06/2018 Family History Grandmother (Maternal) , PASSED AT AGE 76 (OVARIAN CANCER) No problems noted. Grandfather (Paternal) , PASSED IN 60'S ("CHEST" CANCER) No problems noted. Mother No problems noted. Father , PASSED AGE 75 ([place]) No problems noted. Brother No problems noted. Brother No problems noted. Daughter No problems noted. Daughter No problems noted. 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 Other Information That Helps Us Care for You: No Feels Safe at Home: Yes Safety Concerns: Feels Safe At This Time caffeine: Yes (Occaisonally ) during the past year weight has: remained stable Assistive Devices: Glasses Physical Exam Physical Exam: Patient is alert and oriented Heart regular in rhythm Lungs clear to auscultation Results & Data ([facility]) Vital Signs (Past 12 Hours) Vital Signs Temp Pulse Resp BP Pulse Ox 06/06/20 07:03 36.5 C 63 18 152/83 H 95 06/05/20 23:44 36.9 C 71 16 162/84 H 95 Code Status & VTE Plan VTE Prophylaxis Plan VTE Prophylaxis will be ordered: Yes
[2020-06-06] MEDS ORDERED: MIDAZOLAM HCL 1 MG/ML 2ML VIAL ONE (07:36)
[2020-06-06] MEDS ORDERED: NEOSTIGMINE METHYLSULFATE 1 MG/ML 10ML VIAL ONE (07:36)
[2020-06-06] MEDS ORDERED: LIDOCAINE 2% 2 ML VIAL/AMP(20MG/ML) INFIL ONE (07:36)
[2020-06-06] MEDS ORDERED: GLYCOPYRROLATE 0.2 MG/ML VIAL ONE (07:36)
[2020-06-06] MEDS ORDERED: DEXAMETHASONE SOD INJ 4 MG/ML VIAL ONE (07:36)
[2020-06-06] MEDS ORDERED: fentaNYL citrate 100 MCG/2 ML VIAL ONE ×4 (07:36→11:15)
[2020-06-06] MEDS ORDERED: PROPOFOL IV EMULSION 10 MG/ML 20 ML VIAL IV ONE (07:36)
[2020-06-06] MEDS ORDERED: ONDANSETRON INJ 2 MG/ML 2 ML VIAL ONE (07:36)
--- NOTE | 2020-06-06 07:37 | History & Physical Bridge Note ---
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 He is progressively declining and is at extreme risk for permanent neurologic damage and cauda equina syndrome. He is medically stable having worsening symptoms this morning of declaring this neurosurgical emergency.
[2020-06-06] MEDS: PRAMIPEXOLE DIHYDROCHLO 0.25 MG TAB PO SCH ×4 (07:41→20:07)
[2020-06-06] MEDS: BACLOFEN 10 MG TAB PO SCH ×2 (07:42→20:05)
[2020-06-06] MEDS: AMANTADINE HCL 100 MG CAPSULE PO SCH ×3 (07:42→20:05)
[2020-06-06] MEDS: CARBIDOPA/LEVODOPA 25/100MG TAB PO SCH ×2 (07:42→20:07)
[2020-06-06] MEDS ORDERED: BACITRACIN INJ 50,000 UNIT VIAL ONE ×2 (07:58→10:51)
[2020-06-06] MEDS ORDERED: BUPIVACAINE/EPINEPHRINE 0.5% MPF 1:200,000 30 ML VIAL ONE (07:58)
[2020-06-06] MEDS ORDERED: SUGAMMADEX SODIUM 200 MG/2 ML VIAL IV ONE ×2 (08:23)
--- NOTE | 2020-06-06 08:33 | Anesthesiology Consultation ---
Date of Service June 06, 2020 Assessment & Plan (1) Encounter for pre-operative examination: Chart Review Chart Review: Acceptable Risk for Surgery History Surgery Operation Date: 06/06/20 08:20 Proposed Procedures p L5-S1 Revision Fusion - Wilbert Morgan DO Height/Weight Height: 6 ft Weight: 130.1 kg Allergies Allergy/AdvReac Type Severity Reaction Status Date / Time No Known Allergies Allergy Verified 06/05/20 16:54 Medications Home Medications Medication Instructions Recorded Confirmed Last Taken amantadine HCl 100 mg tablet 100 mg PO TID #90 tab 10/13/18 06/05/20 06/05/20 11:30 olmesartan 20 1 tab PO DAILY #90 tab 06/30/19 06/05/20 06/05/20 07:00 mg-hydrochlorothiazide 12.5 mg tablet baclofen 5 mg PO BID #30 tab 06/01/20 06/05/20 06/05/20 07:00 oxycodone 5 mg PO Q8H PRN #20 tab 06/01/20 06/05/20 06/05/20 07:00 carbidopa-levodopa [Sinemet] 2 tab PO BID 06/05/20 06/05/20 06/05/20 11:30 pramipexole 0.25 mg PO TID 06/05/20 06/05/20 06/05/20 11:30 Active Medications Generic Name Dose Route Start Last Admin Trade Name Freq PRN Reason Stop Dose Admin Amantadine HCl 100 mg 06/05/20 21:00 06/06/20 07:42 Amantadine Hcl 100 Mg Capsule PO 07/05/20 20:59 100 mg TID MANDIE Administration Baclofen 5 mg 06/05/20 21:00 06/06/20 07:42 Baclofen 10 Mg Tab PO 07/05/20 20:59 5 mg BID MANDIE Administration Carbidopa/Levodopa 2 tab 06/05/20 21:00 06/06/20 07:42 Carbidopa/Levodopa 25/100mg Tab PO 07/05/20 20:59 2 tab BID MANDIE Administration Lactated Ringer's 1,000 mls @ 100 mls/hr 06/05/20 17:56 06/06/20 04:08 Lr IV 07/05/20 17:55 100 mls/hr .Q10H MANDIE Administration Pramipexole Dihydrochloride 0.25 mg 06/05/20 21:00 06/06/20 07:46 Pramipexole Dihydrochlo 0.25 Mg Tab PO 07/05/20 20:59 Not Given TID MANDIE Senna/Docusate Sodium 2 tab 06/05/20 21:00 06/05/20 20:13 Docusate Sodium/Senna 50/8.6mg Tab PO 07/05/20 20:59 2 tab HS MANDIE Administration NPO Date Last Intake of Fluids: 06/05/20 Time Last Intake of Fluids: 10:00 Date Last Intake of Solids: 06/05/20 Time Last Intake of Solids: 10:00 Past Medical History Medical History Cervical disc disease Degenerative disc disease Hearing deficit WEARS 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 Hypertension Osteoarthritis Parkinson's disease Prostate cancer DX 04/2018. PATIENT HAD 39 TREATMENTS OF RADIATION AFTER THE PROSTATECTOMY. Radiculopathy BLLE RADICULOPATHY AND NUMBNESS. UNABLE TO STAND FOR EVEN SHORT PERIODS OF TI ME. HAS TO CURRENTLY HELP HIM WITH MOST OF HIS ADL'S D/T BACK. Past Family History Family History Grandmother (Maternal) , PASSED AT AGE 76 (OVARIAN CANCER) No problems noted. Grandfather (Paternal) , PASSED IN 60'S ("CHEST" CANCER) No problems noted. Mother No problems noted. Father , PASSED AGE 75 ([place]) No problems noted. Brother No problems noted. Brother No problems noted. Daughter No problems noted. Daughter No problems noted. Past Surgical History Surgical History History of knee replacement B/L S/P colonoscopy S/P prostatectomy 06/2018 Social History Smoking Status: Never smoker tobacco type: smokeless tobacco Do You Dip or Chew Tobacco: Yes Hx Alcohol Use: No Hx Substance Use: No substance use type: does not use Physical Exam Vital Signs Last Vital Signs Temp 36.9 C 06/06/20 07:58 Pulse 70 06/06/20 07:58 Resp 18 06/06/20 07:58 BP 173/72 H 06/06/20 07:58 Pulse Ox 98 06/06/20 07:58 Testing Laboratory Results 06/05/20 18:56 06/05/20 18:56 Electrocardiogram Date: 06/20/19 Findings: + NSR @ (68 with PAC's)
[2020-06-06] MEDS ORDERED: LABETALOL HCL IV 5 MG/ML 20ML IV PRN (08:41)
[2020-06-06] MEDS ORDERED: ATROPINE SULFATE 0.1 MG/ML 10ML SYR IV PRN (08:41)
[2020-06-06] MEDS ORDERED: HYDROmorphone INJ 1 MG/ML SYRINGE IV PRN (08:41)
[2020-06-06] MEDS ORDERED: ONDANSETRON INJ 2 MG/ML 2 ML VIAL IV PRN ×2 (08:41→12:38)
[2020-06-06] MEDS ORDERED: HYDROmorphone INJ 2 MG/ML SYR/VIAL ONE (11:16)
[2020-06-06] MEDS ORDERED: FLOSEAL HEMOSTATIC MATRIX 10ML TOP ONE (11:28)
--- NOTE | 2020-06-06 11:36 | Operative Report ---
Post Operative Report Pre & Post Diagnosis Operation Date: 06/06/20 08:20 Pre-Op Diagnosis: Lumbar back pain with radiculopathy affecting lower extremity. Post-Op Diagnosis: 1. Back with bilateral lower extremity radiculopathy and progressive weakness. #2 failure of instrumentation at the L5-S1 fusion. #3 severe spinal stenosis secondary to failure of hardware and 100% retropulsion of the L5-S1 titanium interbody cage. I identified the patient and participated in the time-out.: Yes Procedure Operation Date: 06/06/20 08:20 Actual Procedures 1. Removal of instrumentation including the bilateral rods S1 pedicle screws and interbody cage at L5-S1. #2 exploration of fusion L5-S1. #3 revision decompression L5-S1 facetectomy on the right. #4 revision interbody fusion L5- S1. #5 open bilateral SI joint fusions. #6 placement of bilateral iliac bolts and larger bilateral S1 pedicle screws fixated with bony cement. #7 placement of infuse collagen sponge, master graft in the posterior gutters L5-S1 and in the bilateral SI joints as well as I factor in the interbody space. Surgeon Wilbert Morgan, DO Quality Assurance Clerk Melanie Gayle Estimated Blood Loss 400 Findings See Below The patient is 6 foot tall weighing over 130 kg with a BMI in excess of 38. Patient's body habitus did contribute to significant technical difficulty requiring her deepest retractors longus instruments in order to perform his procedure. This had at least 25% increase to the operative time. Specimens None Indications This is a 69-year-old male that presents to my office with inability to ambulate bilateral leg weakness and numbness extending from the perineal area down into the bilateral lower extremities. Essentially admitted the emergency room directly from my office underwent medical clearance from both anesthesia and the hospitalist underwent urgent revision decompression fusion. Description of Procedure Patient was met with identified informed consent obtained. Patient was then taken to the operative suite underwent intubation placed in a prone position in jectable top Dejon frame. All bony prominences well-padded eyes inspected to ensure no external pressure placed upon. This point the number spine was prepped and draped in a sterile fashion. Sharp dissection with assistance of Bovie cautery performed down to and exposing the instrumentation from L2-S1 bilaterally. I then proceeded to remove the rods bilaterally. The S1 pedicle screws were grossly mobile bilaterally and subsequently removed. All of the screws demonstrated excellent fixation and purchase. There is obvious lack of bone maturation at the L5-S1 level for evidence of a nonunion. I then proceeded to perform revision decompression at L5-S1 with complete facetectomy on the right and was able to locate the retropulsed L5-S1 interbody cage. It was completely retropulsed and out of the interbody space. This is creating severe neural compression. After the cage was removed I curetted the remaining disc space at L5-S1 to subcortical being bone removing all tissue. I then replaced the interbody cage with a 15 x 26 mm peek cage filled with I factor. I then curetted out the S1 pedicles screw holes bilaterally and injected Kyphon bony cement within the screw holes. 8.5 x 50 pedicle screws were then placed within the pedicle screws bilaterally. Noted marked improvement of the purchase after maturation of the cement. Bilateral exposure of the SI joints was then pe rformed as well as placement of bilateral iliac bolts with the assistance of fluoroscopy. The endplates SI joints were then curetted to subcortical bleeding bone bilaterally. Appropriate sized rods were then contoured and locked in position bilaterally infuse collagen sponge, master graft was then placed in the bilateral SI joints in the posterior gutters extending from L5-S1 ala. Incision was then copiously irrigated 15 round VAUGHN drain inserted. Was then closed with 1 Vicryl the fascia 2-0 Vicryl subcutaneously and 4 Monocryl for final skin closure. Steri-Strip sterile dressings placed. Patient will continue PACU stable condition. Please note Melanie Gayle was present at the entire procedure involved the patient positioning complex portions of the surgery and final skin closure. Lastly spinal cord monitoring was utilized at the procedure no changes noted. I attest to the content of the Intraoperative Record and any orders documented therein. Any exceptions are noted below.
--- NOTE | 2020-06-06 11:59 | Fluoroscopy Report ---
FL lumbar spine 2-3V HISTORY: 69 years-old Male L5-S1 DECOMPRESSION/FUSION/INTERBODY lumbar spine fusion COMPARISON: Fluoroscopic images of the lumbar spine 07/07/2019 TECHNIQUE: 3 spot fluoroscopic images of the lumbar spine were obtained utilizing 18.1 seconds fluoro scopy time FINDINGS: Posterior interbody gerald and screw fusion hardware noted at what appears to be the L2-S1 levels with d iscectomy changes at L4-L5 and L5-S1. Bilateral iliac bolts are also present. No unexpected opaque fo reign body identified. IMPRESSION: Fluoroscopic assistance as above. ACT 112: Negative or not required by law. The above report was generated using voice recognition software. It may contain grammatical, syntax o r spelling errors. Electronically signed by: Gregorio Carrillo M.D. 06/06/2020 11:58 AM
[2020-06-06] MEDS ORDERED: ACETAMINOPHEN 1,000 MG/100 ML VIAL IV PRN (12:38)
[2020-06-06] MEDS ORDERED: hydrOXYzine HCl 25 MG TAB PO PRN (12:38)
[2020-06-06] MEDS ORDERED: DO NOT ADMINISTER PNEUMOCOCCAL VACCINE PRN (12:38)
[2020-06-06] MEDS ORDERED: bisacodyL 10 MG SUPP PR PRN (12:38)
[2020-06-06] MEDS ORDERED: LORazepam 0.5 MG/1 ML VIAL IV PRN (12:38)
[2020-06-06] MEDS ORDERED: MAGNESIUM HYDROXIDE SUSP 30 ML UDC PO PRN (12:38)
[2020-06-06] MEDS ORDERED: ALUMINUM/MAGNESIUM SUSP 30 ML UDC PO PRN (12:38)
[2020-06-06] MEDS ORDERED: DO NOT ADMINISTER FLU VACCINE PRN (12:38)
[2020-06-06] MEDS ORDERED: FAMOTIDINE 20 MG TAB PO PRN (12:38)
[2020-06-06] MEDS ORDERED: ONDANSETRON 4 MG OD TAB PO PRN (12:38)
[2020-06-06] MEDS ORDERED: diphenhydrAMINE Capsule 25 MG CAP PO PRN (12:38)
[2020-06-06] MEDS ORDERED: LORazepam 0.5 MG TAB PO PRN (12:38)
[2020-06-06] MEDS ORDERED: SOD PHOSPHATE/SOD BIPHOSPHATE ENEMA 132 ML BTL PR PRN (12:38)
[2020-06-06] MEDS ORDERED: METOCLOPRAMIDE HCL INJ 5 MG/ML 2 ML VIAL IV PRN (12:38)
[2020-06-06] MEDS ORDERED: PROMETHAZINE HCL 12.5 MG in SODIUM CHLORIDE 0.9% 50 ML IV PRN (12:38)
[2020-06-06] MEDS ORDERED: NALOXONE HCL 0.4 MG/1 ML VIAL/CARP IV PRN (12:38)
[2020-06-06] MEDS ORDERED: ACETAMINOPHEN 500 MG TAB PO PRN (12:38)
--- NOTE | 2020-06-06 13:05 | Anesthesiology Progress Note ---
Date of Service June 06, 2020 Anesthesia Post Procedure Vital Signs Vital Signs: Temp Pulse Pulse Pulse Resp BP BP 06/06/20 12:40 73 18 06/06/20 12:38 36.4 C L 67 18 06/06/20 12:30 36.5 C 73 20 06/06/20 12:20 75 14 06/06/20 12:10 73 14 06/06/20 12:00 57 L 12 06/06/20 11:55 36.1 C L 60 12 06/06/20 07:58 36.9 C 70 18 173/72 H 06/06/20 07:03 36.5 C 63 18 152/83 H 06/05/20 23:44 36.9 C 71 16 162/84 H 06/05/20 17:50 36.5 C 82 18 06/05/20 17:19 76 18 146/85 H 06/05/20 14:11 36.7 C 84 20 109/65 BP Pulse Ox 06/06/20 12:40 129/63 98 06/06/20 12:38 123/62 96 06/06/20 12:30 126/63 98 06/06/20 12:20 102/52 L 98 06/06/20 12:10 108/64 98 06/06/20 12:00 122/50 L 98 06/06/20 11:55 123/47 L 97 06/06/20 07:58 98 06/06/20 07:03 95 06/05/20 23:44 95 06/05/20 17:50 161/89 H 97 06/05/20 17:19 99 06/05/20 14:11 96 Pain Intensity Back: Pain Intensity: 5 Left Hip: Pain Intensity: 5 Transfer of Care Handoff Completed per policy Notes Mental Status: alert / awake / arousable Patient Amnestic to Procedure: Yes Nausea / Vomiting: adequately controlled Pain: adequately controlled Airway Patency, RR, SpO2: stable & adequate BP & HR: stable & adequate Hydration State: stable & adequate Anesthetic Complications: no major complications apparent
[2020-06-06] MEDS: SODIUM CHLORIDE 0.9% 1000ML 1,000 ML IV SCH ×2 (14:19→15:48)
[2020-06-06] MEDS: ceFAZolin 2000MG 2,000 MG/15 ML SYR IV SCH (15:48)
--- NOTE | 2020-06-06 15:58 | Consultation ---
Date of Consultation June 06, 2020 Assessment & Plan (1) Status post lumbar surgery: Removal of instrumentation including the bilateral rods S1 pedicle screws and interbody cage at L5-S1. #2 exploration of fusion L5-S1. #3 revision decompression L5-S1 facetectomy on the right. #4 revision interbody fusion L5- S1. #5 open bilateral SI joint fusions. #6 placement of bilateral iliac bolts and larger bilateral S1 pedicle screws fixated with bony cement. #7 placement of infuse collagen sponge, master graft in the posterior gutters L5-S1 and in the bilateral SI joints as well as I factor in the interbody space. pain control, PT/OT and discharge planning per Dr. Morgan DVT proph: SCD, defer to ortho (2) Gait disturbance: due to severe pain also has some issues related to Parkinson's disease PT/OT consulted (3) Parkinson disease: continue Sinemet, amantidine Miralax q6 to keep bowels regular, especially if he needs narcotics (4) Hypertension: continue home regimen check BMP in the morning (5) Prostate cancer: s/p prostatectomy and 39 cycles of radiation therapy History of Present Illness Requesting Physician: Dr. Morgan Reason for Consultation: medical management Attending Physician: Wilbert Morgan, DO History of Present Illness 69 yo male with history of Parkinson't disease, p rostate cancer s/p prostatectomy and radiation therapy and diffuse osteoarthritis with history of bilateral TKA and lumbar surgery with Dr. Morgan one year ago. He had L3-S1 decompression and fusion and interbody cage L5-S1. He was doing well up until a few months ago when he developed worsening low back pain and radiculopathy down both legs. The pain became debilitating and he started to get weaker in his legs. He required a walker for balance and support. He could not dress himself or bathe himself due to the severe pain and inability to bed over. He had tried pain medications with limited success. He had an L5 nerve root injection about a month ago that offered 1 day of relief but then the pain returned. He says that the pain he had was 10 out of 10, worse than the pain he had prior to first surgery a year ago. He was evaluated by Dr. Morgan in the clinic yesterday, imaging showed that the interbody cage at L5-S1 had migrated posteriorly into the canal and was causing nerve root compression and radicular pain. He was admitted for urgent surgery. He underwent revision today, see A/P for details. Right now he is doing better, no pain, he can raise his right leg without pain which he could not do prior to surgery. He is breathing well, no chest pain, he tolerated some Jello and sherbert after surgery. Typically his Parkinson's is well controlled on Sinemet and amantidine. He has some occasional issues with constipation. Allergies Allergy/AdvReac Type Severity Reaction Status Date / Time No Known Allergies Allergy Verified 06/05/20 16:54 Home Medications Medication Instructions Recorded Confirmed Type amantadine HCl 100 mg tablet 100 mg PO TID #90 tab 10/13/18 06/05/20 Rx olmesartan 20 1 tab PO DAILY #90 tab 06/30/19 06/05/20 Rx mg-hydrochlorothiazide 12.5 mg tablet baclofen 5 mg PO BID #30 tab 06/01/20 06/05/20 Rx oxycodone 5 mg PO Q8H PRN #20 tab 06/01/20 06/05/20 Rx carbidopa-levodopa [Sinemet] 2 tab PO BID 06/05/20 06/05/20 History pramipexole 0.25 mg PO TID 06/05/20 06/05/20 History Patient History Medical History Cervical disc disease Degenerative disc disease Hearing deficit WEARS 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 Hypertension Osteoarthritis Parkinson's disease Prostate cancer DX 04/2018. PATIENT HAD 39 TREATMENTS OF RADIATION AFTER THE PROSTATECTOMY. Radiculopathy BLLE RADICULOPATHY AND NUMBNESS. UNABLE TO STAND FOR EVEN SHORT PERIODS OF TIME. HAS TO CURRENTLY HELP HIM WITH MOST OF HIS ADL'S D/T BACK. Surgical History History of knee replacement B/L S/P colonoscopy S/P prostatectomy 06/2018 Family History Grandmother (Maternal) , PASSED AT AGE 76 (OVARIAN CANCER) No problems noted. Grandfather (Paternal) , PASSED IN 60'S ("CHEST" CANCER) No problems noted. Mother No problems noted. Father , PASSED AGE 75 ([place]) No problems noted. Brother No problems noted. Brother No problems noted. Daughter No problems noted. Daughter No problems noted. 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 Other Information That Helps Us Care for You: No Feels Safe at Home: Yes Safety Concerns: Feels Safe At This Time caffeine: Yes (Occaisonally ) during the past year weight has: remained stable Assistive Devices: Glasses Review of Systems Review of Systems: All systems reviewed & are unremarkable except as noted in HPI & below Constitutional: no fever, no chills, no fatigue and no weakness Respiratory: no cough, no dyspnea and no dyspnea on exertion Cardiovascular: no chest pain, no palpitations and no edema Gastrointestinal: no abdominal pain, no nausea, no vomiting, no constipation and no diarrhea/loose stools Genitourinary: + difficulty urinating and + urinary incontinence Musculoskeletal: + back pain (severe, debilitating prior to surgery this morning), + radicular pain (down both legs) and + limited range of motion (legs and back due to pain) Physical Exam Constitutional: WD/WN, vitals as above + obese Eyes: PERRL, conjunctivae normal, anicteric sclerae ENMT: external ear and nose normal, oropharynx normal Ears: + hearing impairment (wears bilateral hearing aides) Neck: trachea midline, no thyromegaly Respiratory: normal respiratory effort, lungs clear to auscultation Cardiovascular: RRR, no murmur, no edema Gastrointestinal (Abdomen): normal bowel sounds, soft, nontender, no hepatosplenomegaly Musculoskeletal: Head/Neck/Chest: normocephalic, head atraumatic and neck supple Spine: + lumbar spinal tenderness Extremities: + abnormal strength (some weakness in legs bilaterally); no cyanosis, no clubbing and no petechiae Skin: no rashes, warm and dry Neurologic: patellar DTR's 2+ bilat, sensation intact and PERRL, EOMI, accommodation nl, no face palsy, no dysarthria Motor/Sensory: + tremor (right upper extremity at rest) Psychiatric: A+Ox3, euthymic affect Lymphatic: no cervical or axillary lymphadenopathy Results & Data ([facility]) Vital Signs (Past 12 Hours) Vital Signs Temp Pulse Pulse Resp BP BP Pulse Ox 06/06/20 15:12 36.5 C 69 18 118/75 96 06/06/20 14:00 65 20 152/85 H 95 06/06/20 13:35 36.8 C 66 18 138/68 95 06/06/20 13:08 36.8 C 73 18 116/76 97 06/06/20 12:40 73 18 129/63 98 06/06/20 12:38 36.4 C L 67 18 123/62 96 06/06/20 12:30 36.5 C 73 20 126/63 98 06/06/20 12:20 75 14 102/52 L 98 06/06/20 12:10 73 14 108/64 98 06/06/20 12:00 57 L 12 122/50 L 98 06/06/20 11:55 36.1 C L 60 12 123/47 L 97 06/06/20 07:58 36.9 C 70 18 173/72 H 98 06/06/20 07:03 36.5 C 63 18 152/83 H 95 Laboratory Results Laboratory Results - last 24 hr 06/05/20 06/05/20 06/05/20 15:14 18:56 18:56 WBC 6.89 RBC 4.86 Hgb 14.3 Hct 41.8 L MCV 86.0 MCH 29.4 MCHC 34.2 RDW Std Deviation 49.1 H RDW Coeff of Ashu 15.5 H Plt Count 306 MPV 9.1 Immature Gran % (Auto) 0.1 Neut % (Auto) 92.8 Lymph % (Auto) 5.5 [place] % (Auto) 1.5 Eos % (Auto) 0.0 Baso % (Auto) 0.1 Neut # (Auto) 6.39 Lymph # (Auto) 0.38 L [place] # (Auto) 0.10 L Eos # (Auto) 0.00 Baso # (Auto) 0.01 Immature Gran # (Auto) 0.01 Sodium 140 Potassium 4.2 Chloride 107 Carbon Dioxide 27 Anion Gap 6.0 BUN 29 H Creatinine 1.34 Est Cr Clr Drug Dosing 74.6 Est GFR ( Amer) 63.1 Est GFR (Non-Af Amer) 54.4 BUN/Creatinine Ratio 21.3 H Glucose 151 H Calcium 9.1 Total Bilirubin 1.0 AST 10 L ALT 10 L Alkaline Phosphatase 155 H Total Protein 7.8 Albumin 3.6 Globulin 4.2 H Albumin/Globulin Ratio 0.9 SARS-CoV-2 (PCR) NEGATIVE Influenza Type A (PCR) Negative Influenza Type B (PCR) Negative RSV (RT-PCR) Negative Medications Administered Current Inpatient Medications Acetaminophen (Acetaminophen 500 Mg Tab) 1,000 mg PO Q8H PRN PRN Reason: MILD Pain Scale 1,2,3 & Pre PT Stop: 07/06/20 12:37 Al Hydrox/Mg Hydrox/Simethicone (Aluminum/Magnesium Susp 30 Ml Udc) 30 ml PO Q6H PRN PRN Reason: Dyspepsia Stop: 07/06/20 12:37 Amantadine HCl (Amantadine Hcl 100 Mg Capsule) 100 mg PO TID [facility] Stop: 07/05/20 20:59 Last Admin: 06/06/20 14:20 Dose: 100 mg Documented by: Atropine Sulfate (Atropine Sulfate 0.1 Mg/Ml 10ml Syr) 0.5 mg IV Q1M PRN PRN Reason: PACU Use-HR<40 &/or Bradycardi Stop: 06/06/20 16:41 Baclofen (Baclofen 10 Mg Tab) 5 mg PO BID [facility] Stop: 07/05/20 20:59 Last Admin: 06/06/20 07:42 Dose: 5 mg Documented by: Bisacodyl (Bisacodyl 10 Mg Supp) 10 mg [place] DAILY PRN PRN Reason: Constipation Stop: 07/06/20 12:37 Carbidopa/Levodopa (Carbidopa/Levodopa 25/100mg Tab) 2 tab PO BID [facility] Stop: 07/05/20 20:59 Last Admin: 06/06/20 07:42 Dose: 2 tab Documented by: Diphenhydramine HCl (Diphenhydramine Capsule 25 Mg Cap) 25 mg PO Q6H PRN PRN Reason: Allergic Rhinitis/Insomnia Stop: 07/06/20 12:37 Famotidine (Famotidine 20 Mg Tab) 20 mg PO Q12H PRN PRN Reason: Dyspepsia Stop: 07/06/20 12:37 Hydromorphone HCl (Hydromorphone Inj 0.5 Mg/0.5 Ml Syr) 0.5 mg IV Q3H PRN PRN Reason: MOD pain (scale 4-6) & Pre PT Stop: 06/19/20 17:55 Hydromorphone HCl (Hydromorphone Inj 1 Mg/Ml Syringe) 1 mg IV Q3H PRN PRN Reason: severe pain (scale 7-10) Stop: 06/19/20 17:55 Hydromorphone HCl (Hydromorphone Inj 1 Mg/Ml Syringe) 0.25 mg IV Q5M PRN PRN Reason: PACU Use Only-Pain Stop: 06/06/20 16:41 Hydroxyzine HCl (Hydroxyzine Hcl 25 Mg Tab) 25 mg PO Q8H PRN PRN Reason: Anxiety Stop: 07/06/20 12:37 Cefazolin Sodium (Ancef 3000mg) 72.5 mls @ 130 mls/hr IV PREOP MANDIE; Protocol Stop: 06/07/20 05:59 Last Infusion: 06/06/20 12:59 Dose: Infused Documented by: Promethazine HCl 12.5 mg/ (Sodium Chloride) 50.5 mls @ 204 mls/hr IV Q6H PRN PRN Reason: Nausea &/or Vomiting Stop: 07/06/20 12:37 Lorazepam (Ativan) 0.5 mg in 1 mls @ 0.5 mls/min IV Q8H PRN PRN Reason: Sedation/Anxiety Stop: 07/06/20 12:37 Acetaminophen (Ofirmev) 1,000 mg in 100 mls @ 400 mls/hr IV Q8H PRN PRN Reason: MILD Pain Rating 1,2,3 Stop: 06/07/20 12:37 Cefazolin Sodium (Ancef 2000mg) 2,000 mg in 15 mls @ 3.75 mls/min IV Q8H MANDIE; Protocol Stop: 06/07/20 00:03 Last Admin: 06/06/20 15:48 Dose: 3.75 mls/min Documented by: Sodium Chloride (Nss) 1,000 mls @ 150 mls/hr IV .Q6H40M MANDIE Stop: 07/06/20 15:14 Influenza Virus Vaccine Quadrival (Do Not Administer Flu Vaccine) 1 ea N/A PRN PRN PRN Reason: Notification Stop: 07/06/20 12:37 Labetalol HCl (Labetalol Hcl Iv 5 Mg/Ml 20ml) 5 mg IV Q5M PRN PRN Reason: PACU Use-SBP>160 or DBP>100 Stop: 06/06/20 16:41 Lorazepam (Lorazepam 0.5 Mg Tab) 0.5 mg PO Q8H PRN PRN Reason: Sedation/Anxiety Stop: 07/06/20 12:37 Magnesium Hydroxide (Magnesium Hydroxide Susp 30 Ml Udc) 30 ml PO DAILY PRN PRN Reason: Constipation Stop: 07/06/20 12:37 Metoclopramide HCl (Metoclopramide Hcl Inj 5 Mg/Ml 2 Ml Vial) 10 mg IV Q6H PRN PRN Reason: Nausea &/or Vomiting Stop: 07/06/20 12:37 Naloxone HCl (Naloxone Hcl 0.4 Mg/1 Ml Vial/Carp) 0.1 mg IV Q5M PRN; Protocol PRN Reason: Oversedation/Resp Depression Stop: 07/06/20 12:37 Ondansetron HCl (Ondansetron Inj 2 Mg/Ml 2 Ml Vial) 4 mg IV ONCE PRN PRN Reason: PACU Use Only-Nausea/Vomiting Stop: 06/06/20 16:41 Ondansetron HCl (Ondansetron Inj 2 Mg/Ml 2 Ml Vial) 4 mg IV Q6H PRN PRN Reason: Nausea &/or Vomiting Stop: 07/06/20 12:37 Ondansetron HCl (Ondansetron 4 Mg Od Tab) 4 mg PO Q6H PRN PRN Reason: Nausea Stop: 07/06/20 12:37 Oxycodone HCl (Oxycodone Hcl Ir 5 Mg Tab (Immediate Release)) 5 - 10 mg PO Q4H PRN PRN Reason: mod to severe pain Stop: 06/19/20 17:55 Pneumococcal Polyvalent Vaccine (Do Not Administer Pneumococcal Vaccine) 1 ea N/A PRN PRN PRN Reason: Notification Stop: 07/06/20 12:37 Polyethylene Glycol (Polyethylene (Miralax) 17 Gm Pack) 17 gm PO Q6 [facility] Stop: 07/07/20 05:59 Pramipexole Dihydrochloride (Pramipexole Dihydrochlo 0.25 Mg Tab) 0.25 mg PO TID MANDIE Stop: 07/05/20 20:59 Last Admin: 06/06/20 14:19 Dose: Not Given Documented by: Senna/Docusate Sodium (Docusate Sodium/Senna 50/8.6mg Tab) 2 tab PO HS [facility] Stop: 07/06/20 20:59 Sodium Biphosphate/Sodium Phosphate (Sod Phosphate/Sod Biphosphate Enema 132 Ml Btl) 132 ml [place] ONE PRN PRN Reason: Constipation Stop: 07/06/20 12:37 Tramadol HCl (Tramadol Hcl 50 Mg Tablet) 50 - 100 mg PO Q4H PRN PRN Reason: Moderate-Severe pain & Pre PT Stop: 07/05/20 17:55 PG Care Time/CCT Total # of Minutes Spent Total Time Spent with Patient: Total time spent is greater than 50% in coordination of care (as documented) at patient's floor/unit and/or counseling patient: Coding Level of Care Code 86218 Inpt Consult Level 3 Diagnoses Status post lumbar surgery Z98.890 Gait disturbance R26.9 Parkinson disease G20 Hypertension I10 Prostate cancer C61
[2020-06-06] MEDS: SODIUM CHLORIDE 0.9% 1,000 ML IV SCH ×2 (16:14→22:27)
[2020-06-06] MEDS: DOCUSATE SODIUM/SENNA 50/8.6MG TAB PO SCH (20:05)
[2020-06-07] MEDS: ceFAZolin 2000MG 2,000 MG/15 ML SYR IV SCH (00:25)
[2020-06-07] MEDS: SODIUM CHLORIDE 0.9% 1,000 ML IV SCH (05:34)
[2020-06-07] MEDS: POLYETHYLENE (MIRALAX) 17 GM PACK PO SCH ×3 (06:10→18:04)
[2020-06-07 07:38] LABS: Hematocrit (blood only) 40.6 % (42-52); Hemoglobin 13.3 g/dL (14.0-18.0); Immature Granulocytes # (auto) 0.03 K/uL (0.00-0.02); Immature Granulocytes % (auto) 0.2 %; Lymphocytes # (auto) 0.58 K/uL (1.2-3.4); Lymphocytes % (auto) 3.9 %; Mean Corpuscular Hemoglobin 28.7 pg (25-34); Mean Corpuscular Hgb Conc 32.8 g/dL (32-36); Mean Corpuscular Volume 87.7 fL (80-100); Mean Platelet Volume 9.4 fL (7.4-10.4); Monocytes # (auto) 1.13 K/uL (0.11-0.59); Monocytes % (auto) 7.6 %; Neutrophils # (auto) 13.16 K/uL (1.4-6.5); Neutrophils % (auto) 88.3 %; Platelet Count 329 K/uL (130-400); RDW Coefficient of Variation 15.8 % (11.5-14.5); RDW Standard Deviation 50.4 fL (36.4-46.3); Red Blood Count 4.63 M/uL (4.7-6.1)
--- NOTE | 2020-06-07 08:14 | Orthopedic Progress Note ---
Date of Service June 07, 2020 Assessment & Plan (1) Status post lumbar surgery: Admission and Anticipated Discharge Date Admission Date: June 05, 2020 This point he is improved dramatically from a neurologic standpoint. He still limited with underlying Parkinson's disease. We have discussed rehab placement. He is comfortable this. I would like to obtain standing x-rays lumbar spine tomorrow. We will initiate therapy today. Subjective Patient's back pain and leg symptoms are markedly improved. Physical Exam Physical Exam: On exam he standing he is ambulating with a walker. He appears much more comfortable. Results & Data ([facility]) Vital Signs (Past 12 Hours) Vital Signs Temp Pulse Resp BP Pulse Ox 06/07/20 07:12 36.4 C L 76 20 132/83 95 06/07/20 03:00 36.8 C 14 153/84 H 95 06/06/20 23:48 36.8 C 80 16 121/67 92
[2020-06-07 08:18] LABS: BUN Creatinine Ratio 20.4 (10-20); Calcium 9.2 mg/dl (8.5-10.1); Creatinine Clr Calc Pharmacy 85.4 ml/min; Est GFR (African American) 74.3; Est GFR (Non-African American) 64.1; Potassium 3.8 mmol/L (3.5-5.1)
[2020-06-07] MEDS: CARBIDOPA/LEVODOPA 25/100MG TAB PO SCH ×2 (08:37→20:34)
[2020-06-07] MEDS: BACLOFEN 10 MG TAB PO SCH ×2 (08:37→20:31)
[2020-06-07] MEDS: AMANTADINE HCL 100 MG CAPSULE PO SCH ×3 (08:37→20:31)
[2020-06-07] MEDS: PRAMIPEXOLE DIHYDROCHLO 0.25 MG TAB PO SCH ×3 (08:38→20:33)
[2020-06-07] MEDS: NICOTINE 7 MG/24 HR TDSY TD SCH (08:39)
[2020-06-07] MEDS: dexAMETHasone 8 MG in SYRINGE 0 ML IV SCH (09:49)
--- NOTE | 2020-06-07 11:47 | Hospitalist Progress Note ---
Date of Service June 07, 2020 Assessment & Plan (1) Status post lumbar surgery: Removal of instrumentation including the bilateral rods S1 pedicle screws and interbody cage at L5-S1. #2 exploration of fusion L5-S1. #3 revision decompression L5-S1 facetectomy on the right. #4 revision interbody fusion L5- S1. #5 open bilateral SI joint fusions. #6 placement of bilateral iliac bolts and larger bilateral S1 pedicle screws fixated with bony cement. #7 placement of infuse collagen sponge, master graft in the posterior gutters L5-S1 and in the bilateral SI joints as well as I factor in the interbody space. pain control, PT/OT and discharge planning per Dr. Morgan DVT proph: SCD, defer to ortho POD1, pain is only 2 out of 10, OOB in the chair, participating with PT/OT plan for rehab + flatus, very small BM, feels a little bloated and needs to have a good BM (2) Gait disturbance: due to severe pain also has some issues related to Parkinson's disease PT/OT consulted, plan for rehab (3) Parkinson disease: continue Sinemet, amantidine Miralax q6 to keep bowels regular, especially if he needs narcotics (4) Hypertension: continue home regimen of Olmesartan 20mg daily, hold the HCTZ component for now Cr is 1.17, K 3.8 eating and drinking well (5) Prostate cancer: s/p prostatectomy and 39 cycles of radiation therapy (6) Constipation: continue Miralax q6 can try suppository this evening if no BM today Admission and Anticipated Discharge Date Admission Date: June 05, 2020 Subjective doing well, pain is only 2 out of 10, OOB in chair no chest pain, no dyspnea, no fever VAUGHN draining blood Hb is 13.3, WBC is 14k (Decadron) Cr is 1.1 and K is normal eating and drinking well, feels a little bloated, needs to have a good BM offered nicotine patch due to daily chewing tobacco use, he refused for now Review of Systems Review of Systems: All systems reviewed & are unremarkable except as noted in Subjective Physical Exam Constitutional: WD/WN, vitals as above + obese ENMT: Ears: + hearing impairment (wears bilateral hearing aides) Neck: trachea midline, no thyromegaly Respiratory: normal respiratory effort, lungs clear to auscultation Cardiovascular: RRR, no murmur, no edema Gastrointestinal (Abdomen): Inspection/Auscultation: abdomen normal to inspection and + hypoactive bowel sounds Percussion/Palpation: abdomen soft and + tympanic to percussion; abdomen nontender, no guarding and abdomen not rigid Musculoskeletal: Head/Neck/Chest: normocephalic, head atraumatic and neck supple Spine: + lumbar spinal tenderness Extremities: + abnormal strength (some weakness in legs bilaterally); no cyanosis, no clubbing and no petechiae Skin: no rashes, warm and dry Neurologic: patellar DTR's 2+ bilat, sensation intact and PERRL, EOMI, accommodation nl, no face palsy, no dysarthria Motor/Sensory: + tremor (right upper extremity at rest) Psychiatric: A+Ox3, euthymic affect Lymphatic: no cervical or axillary lymphadenopathy Results & Data Results & Data ([facility]) Vital Signs (Past 12 Hours) Vital Signs Temp Pulse Resp BP Pulse Ox 06/07/20 07:12 36.4 C L 76 20 132/83 95 06/07/20 03:00 36.8 C 14 153/84 H 95 06/06/20 23:48 36.8 C 80 16 121/67 92 Laboratory Results Laboratory Results - last 24 hr 06/07/20 06/07/20 06:58 06:58 WBC 14.90 H RBC 4.63 L Hgb 13.3 L Hct 40.6 L MCV 87.7 MCH 28.7 MCHC 32.8 RDW Std Deviation 50.4 H RDW Coeff of Ashu 15.8 H Plt Count 329 MPV 9.4 Immature Gran % (Auto) 0.2 Neut % (Auto) 88.3 Lymph % (Auto) 3.9 Nye % (Auto) 7.6 Eos % (Auto) 0.0 Baso % (Auto) 0.0 Neut # (Auto) 13.16 H Lymph # (Auto) 0.58 L Nye # (Auto) 1.13 H Eos # (Auto) 0.00 Baso # (Auto) 0.00 Immature Gran # (Auto) 0.03 H Sodium 139 Potassium 3.8 Chloride 106 Carbon Dioxide 28 Anion Gap 5.0 BUN 24 H Creatinine 1.17 Est Cr Clr Drug Dosing 85.4 Est GFR ( Amer) 74.3 Est GFR (Non-Af Amer) 64.1 BUN/Creatinine Ratio 20.4 H Glucose 103 H Calcium 9.2 Medications Administered Current Inpatient Medications Acetaminophen (Acetaminophen 500 Mg Tab) 1,000 mg PO Q8H PRN PRN Reason: MILD Pain Scale 1,2,3 & Pre PT Stop: 07/06/20 12:37 Al Hydrox/Mg Hydrox/Simethicone (Aluminum/Magnesium Susp 30 Ml Udc) 30 ml PO Q6H PRN PRN Reason: Dyspepsia Stop: 07/06/20 12:37 Amantadine HCl (Amantadine Hcl 100 Mg Capsule) 100 mg PO TID [facility] Stop: 07/05/20 20:59 Last Admin: 06/07/20 08:37 Dose: 100 mg Documented by: Baclofen (Baclofen 10 Mg Tab) 5 mg PO BID [facility] Stop: 07/05/20 20:59 Last Admin: 06/07/20 08:37 Dose: 5 mg Documented by: Bisacodyl (Bisacodyl 10 Mg Supp) 10 mg MO DAILY PRN PRN Reason: Constipation Stop: 07/06/20 12:37 Carbidopa/Levodopa (Carbidopa/Levodopa 25/100mg Tab) 2 tab PO BID [facility] Stop: 07/05/20 20:59 Last Admin: 06/07/20 08:37 Dose: 2 tab Documented by: Diphenhydramine HCl (Diphenhydramine Capsule 25 Mg Cap) 25 mg PO Q6H PRN PRN Reason: Allergic Rhinitis/Insomnia Stop: 07/06/20 12:37 Famotidine (Famotidine 20 Mg Tab) 20 mg PO Q12H PRN PRN Reason: Dyspepsia Stop: 07/06/20 12:37 Hydromorphone HCl (Hydromorphone Inj 0.5 Mg/0.5 Ml Syr) 0.5 mg IV Q3H PRN PRN Reason: MOD pain (scale 4-6) & Pre PT Stop: 06/19/20 17:55 Hydromorphone HCl (Hydromorphone Inj 1 Mg/Ml Syringe) 1 mg IV Q3H PRN PRN Reason: severe pain (scale 7-10) Stop: 06/19/20 17:55 Hydroxyzine HCl (Hydroxyzine Hcl 25 Mg Tab) 25 mg PO Q8H PRN PRN Reason: Anxiety Stop: 07/06/20 12:37 Promethazine HCl 12.5 mg/ (Sodium Chloride) 50.5 mls @ 204 mls/hr IV Q6H PRN PRN Reason: Nausea &/or Vomiting Stop: 07/06/20 12:37 Lorazepam (Ativan) 0.5 mg in 1 mls @ 0.5 mls/min IV Q8H PRN PRN Reason: Sedation/Anxiety Stop: 07/06/20 12:37 Acetaminophen (Ofirmev) 1,000 mg in 100 mls @ 400 mls/hr IV Q8H PRN PRN Reason: MILD Pain Rating 1,2,3 Stop: 06/07/20 12:37 Dexamethasone 8 mg/ Syringe 2 mls @ 1 mls/min IV DAILY [facility] Stop: 07/07/20 08:59 Last Admin: 06/07/20 09:49 Dose: 1 mls/min Documented by: Influenza Virus Vaccine Quadrival (Do Not Administer Flu Vaccine) 1 ea N/A PRN PRN PRN Reason: Notification Stop: 07/06/20 12:37 Lorazepam (Lorazepam 0.5 Mg Tab) 0.5 mg PO Q8H PRN PRN Reason: Sedation/Anxiety Stop: 07/06/20 12:37 Magnesium Hydroxide (Magnesium Hydroxide Susp 30 Ml Udc) 30 ml PO DAILY PRN PRN Reason: Constipation Stop: 07/06/20 12:37 Metoclopramide HCl (Metoclopramide Hcl Inj 5 Mg/Ml 2 Ml Vial) 10 mg IV Q6H PRN PRN Reason: Nausea &/or Vomiting Stop: 07/06/20 12:37 Miscellaneous (Remove Nicoderm Patch) 1 ea N/A DAILY@0859 [facility] Stop: 07/08/20 08:58 Naloxone HCl (Naloxone Hcl 0.4 Mg/1 Ml Vial/Carp) 0.1 mg IV Q5M PRN; Protocol PRN Reason: Oversedation/Resp Depression Stop: 07/06/20 12:37 Nicotine (Nicotine 7 Mg/24 Hr Tdsy) 7 mg TD QAM [facility] Stop: 07/07/20 08:59 Last Admin: 06/07/20 08:39 Dose: Not Given Documented by: Olmesartan (Olmesartan Medoxomil 20 Mg Tab) 20 mg PO QAM [facility] Stop: 07/07/20 11:44 Ondansetron HCl (Ondansetron Inj 2 Mg/Ml 2 Ml Vial) 4 mg IV Q6H PRN PRN Reason: Nausea &/or Vomiting Stop: 07/06/20 12:37 Ondansetron HCl (Ondansetron 4 Mg Od Tab) 4 mg PO Q6H PRN PRN Reason: Nausea Stop: 07/06/20 12:37 Oxycodone HCl (Oxycodone Hcl Ir 5 Mg Tab (Immediate Release)) 5 - 10 mg PO Q4H PRN PRN Reason: mod to severe pain Stop: 06/19/20 17:55 Pneumococcal Polyvalent Vaccine (Do Not Administer Pneumococcal Vaccine) 1 ea N /A PRN PRN PRN Reason: Notification Stop: 07/06/20 12:37 Polyethylene Glycol (Polyethylene (Miralax) 17 Gm Pack) 17 gm PO Q6 [facility] Stop: 07/07/20 05:59 Last Admin: 06/07/20 11:44 Dose: 17 gm Documented by: Pramipexole Dihydrochloride (Pramipexole Dihydrochlo 0.25 Mg Tab) 0.25 mg PO TID [facility] Stop: 07/05/20 20:59 Last Admin: 06/07/20 08:38 Dose: 0.25 mg Documented by: Senna/Docusate Sodium (Docusate Sodium/Senna 50/8.6mg Tab) 2 tab PO HS [facility] Stop: 07/06/20 20:59 Last Admin: 06/06/20 20:05 Dose: 2 tab Documented by: Sodium Biphosphate/Sodium Phosphate (Sod Phosphate/Sod Biphosphate Enema 132 Ml Btl) 132 ml MO ONE PRN PRN Reason: Constipation Stop: 07/06/20 12:37 Tramadol HCl (Tramadol Hcl 50 Mg Tablet) 50 - 100 mg PO Q4H PRN PRN Reason: Moderate-Severe pain & Pre PT Stop: 07/05/20 17:55 PG Care Time/CCT Total # of Minutes Spent Total Time Spent with Patient: Total time spent is greater than 50% in coordination of care (as documented) at patient's floor/unit and/or counseling patient: Coding Level of Care Code 54353 Subseq Hosp Care Lvl 2 Diagnoses Status post lumbar surgery Z98.890 Gait disturbance R26.9 Parkinson disease G20 Hypertension I10 Prostate cancer C61 Constipation K59.00
[2020-06-07] MEDS: OLMESARTAN MEDOXOMIL 20 MG TAB PO SCH (12:56)
[2020-06-07] MEDS ORDERED: bisacodyL 10 MG SUPP PR PRN (14:40)
[2020-06-07] MEDS: DOCUSATE SODIUM/SENNA 50/8.6MG TAB PO SCH (20:34)
[2020-06-07] MEDS: CARBIDOPA/LEVODOPA 50/200MG EXT REL TAB PO SCH (20:38)
[2020-06-07] MEDS ORDERED: CARBIDOPA/LEVODOPA 25/100MG TAB PO SCH (21:00)
[2020-06-08] MEDS: POLYETHYLENE (MIRALAX) 17 GM PACK PO SCH ×2 (00:44→06:36)
[2020-06-08] MEDS ORDERED: CARBIDOPA/LEVODOPA 25/100MG TAB PO SCH (07:30)
[2020-06-08 07:54] LABS: Hematocrit (blood only) 42.3 % (42-52); Hemoglobin 14.1 g/dL (14.0-18.0); Mean Corpuscular Hemoglobin 29.5 pg (25-34); Mean Corpuscular Hgb Conc 33.3 g/dL (32-36); Mean Corpuscular Volume 88.5 fL (80-100); Mean Platelet Volume 9.2 fL (7.4-10.4); Platelet Count 308 K/uL (130-400); RDW Coefficient of Variation 15.7 % (11.5-14.5); RDW Standard Deviation 50.4 fL (36.4-46.3); Red Blood Count 4.78 M/uL (4.7-6.1); White Blood Count 14.45 K/uL (4.8-10.8)
--- NOTE | 2020-06-08 08:07 | XRay Report ---
KUB HISTORY: Acute abdominal pain with vomiting Vomiting, ileus? COMPARISON: Fluoroscopic images of the lumbar spine 06/06/2020 FINDINGS: Gaseous distention of the stomach. Gas-filled distended loops of small bowel measure up to 4.9 cm transversely. Small amount of air noted within the hepatic flexure. Lumbar spinal fusion hardw are with discectomy changes and iliac bolts. Surgical drainage catheter. Pelvic basin phlebolith. No renal calculi. No ureteral calculi. No pneumoperitoneum or pneumatosis. No fracture. IMPRESSION: Gaseous distention of the stomach with air-filled dilated loops of small bowel. Ileus versus developi ng obstruction considered. Follow-up recommended. ACT 112: Negative or not required by law. The above report was generated using voice recognition software. It may contain grammatical, syntax o r spelling errors. Electronically signed by: Gregorio Carrillo M.D. 06/08/2020 8:05 AM
[2020-06-08 08:39] LABS: BUN Creatinine Ratio 23.3 (10-20); Calcium 9.4 mg/dl (8.5-10.1); Creatinine Clr Calc Pharmacy 83.3 ml/min; Est GFR (African American) 72.1; Est GFR (Non-African American) 62.2; Magnesium 2.2 mg/dl (1.8-2.4); Potassium 3.5 mmol/L (3.5-5.1)
--- NOTE | 2020-06-08 09:11 | Hospitalist Progress Note ---
Date of Service June 08, 2020 Assessment & Plan (1) Postoperative ileus: abdomen distended, vomiting this morning KUB with distended stomach and small bowel loops, some air in colon, + flatus this morning NPO, start IV fluids with 30 KCl to keep K > 4.0 if he vomits again then he would need NGT to low intermittent suction will need to give Sinemet so if he gets NGT then can turn off suction after Sinemet could try Glycerin suppository later today to get things moving encourage him OOB, ambulate with therapy in halls if possible will likely take a few days to resolve (2) Status post lumbar surgery: Removal of instrumentation including the bilateral rods S1 pedicle screws and interbody cage at L5-S1. #2 exploration of fusion L5-S1. #3 revision decompression L5-S1 facetectomy on the right. #4 revision interbody fusion L5- S1. #5 open bilateral SI joint fusions. #6 placement of bilateral iliac bolts and larger bilateral S1 pedicle screws fixated with bony cement. #7 placement of infuse collagen sponge, master graft in the posterior gutters L5-S1 and in the bilateral SI joints as well as I factor in the interbody space. pain control, PT/OT and discharge planning per Dr. Morgan DVT proph: SCD, defer to ortho POD2, pain is minimal, OOB in the chair, participating with PT/OT plan for rehab + flatus, no BM, now with developing ileus (3) Gait disturbance: due to severe pain also has some issues related to Parkinson's disease PT/OT consulted, plan for rehab (4) Parkinson disease: Sinemet, takes ER 25/100 one tab in AM and noon and 2 tabs evening Sinemet 25/100 immediate release takes 3 tablets QID Amantidine (5) Hypertension: continue home regimen of Olmesartan 20mg daily, hold the HCTZ component for now Cr is 1.2, K 3.5 BP stable (6) Prostate cancer: s/p prostatectomy and 39 cycles of radiation therapy (7) Constipation: was on Miralax q6 immediately post op now with developing ileus will try glycerin suppository Admission and Anticipated Discharge Date Admission Date: June 05, 2020 Subjective patient says he started to develop abdominal fullness and distension last night his appetite was diminished he was taking the Miralax 17gm q6 and drinking water, he gets concerned about bowels moving with his Parkinson's disease he did not have a suppository last night his last BM was yesterday morning, small BM, he admits to some flatus this morning he started vomiting around 6am, several times then dry heaves right now he denies nausea, just has hiccups, he refused Zofran ordered KUB - shows evidence of an ileus which fits with his presentation discussed options with him, will keep NPO, if he vomits again then place NGT to decompress stomach he will need to get his Sinemet so he can take with sip of water can try a glycerin suppository later this morning, encourage him to get up and ambulate if he can start on NSS + 30mEq K at 80cc/hr, his K is low normal breathing well, no chest pain, back pain well controlled Review of Systems Review of Systems: All systems reviewed & are unremarkable except as noted in Subjective Constitutional: + fatigue and + weakness; no fever Respiratory: no cough and no dyspnea Cardiovascular: no chest pain, no palpitations, no syncope and no edema Gastrointestinal: + belching, + bloating, + nausea, + vomiting and + constipation (last BM was small, morning 06/07, + flatus but not much); no diarrhea/loose stools Musculoskeletal: + back pain (mild to moderate) Physical Exam Constitutional: WD/WN, vitals as above + obese ENMT: Ears: + hearing impairment (wears bilateral hearing aides) Neck: trachea midline, no thyromegaly Respiratory: normal respiratory effort, lungs clear to auscultation Cardiovascular: RRR, no murmur, no edema Gastrointestinal (Abdomen): Inspection/Auscultation: + abdomen distended and + hypoactive bowel sounds Percussion/Palpation: abdomen soft and + tympanic to percussion; abdomen nontender, no guarding and abdomen not rigid Musculoskeletal: Head/Neck/Chest: normocephalic, head atraumatic and neck supple Extremities: + abnormal strength (some weakness in legs bilaterally); no cyanosis, no clubbing and no petechiae Skin: no rashes, warm and dry Neurologic: patellar DTR's 2+ bilat, sensation intact and PERRL, EOMI, accom modation nl, no face palsy, no dysarthria Motor/Sensory: + tremor (right upper extremity at rest) Psychiatric: A+Ox3, euthymic affect Lymphatic: no cervical or axillary lymphadenopathy Results & Data Results & Data ([facility]) Vital Signs (Past 12 Hours) Vital Signs Temp Pulse Resp BP BP Pulse Ox 06/08/20 07:58 36.3 C L 78 16 130/81 92 06/07/20 23:24 36.8 C 84 16 138/63 93 Laboratory Results Laboratory Results - last 24 hr 06/08/20 06/08/20 07:38 07:38 WBC 14.45 H RBC 4.78 Hgb 14.1 Hct 42.3 MCV 88.5 MCH 29.5 MCHC 33.3 RDW Std Deviation 50.4 H RDW Coeff of Ashu 15.7 H Plt Count 308 MPV 9.2 Sodium 139 Potassium 3.5 Chloride 102 Carbon Dioxide 33 H Anion Gap 4.0 BUN 28 H Creatinine 1.20 Est Cr Clr Drug Dosing 83.3 Est GFR ( Amer) 72.1 Est GFR (Non-Af Amer) 62.2 BUN/Creatinine Ratio 23.3 H Glucose 110 H Calcium 9.4 Magnesium 2.2 Diagnostic Findings KUB IMPRESSION: Gaseous distention of the stomach with air-filled dilated loops of small bowel. Ileus versus developing obstruction considered. Follow-up recommended. Medications Administered Current Inpatient Medications Acetaminophen (Acetaminophen 500 Mg Tab) 1,000 mg PO Q8H PRN PRN Reason: MILD Pain Scale 1,2,3 & Pre PT Stop: 07/06/20 12:37 Al Hydrox/Mg Hydrox/Simethicone (Aluminum/Magnesium Susp 30 Ml Udc) 30 ml PO Q6H PRN PRN Reason: Dyspepsia Stop: 07/06/20 12:37 Amantadine HCl (Amantadine Hcl 100 Mg Capsule) 100 mg PO TID [facility] Stop: 07/05/20 20:59 Last Admin: 06/07/20 20:31 Dose: 100 mg Documented by: Bisacodyl (Bisacodyl 10 Mg Supp) 10 mg UT DAILY PRN PRN Reason: Constipation Stop: 07/06/20 12:37 Carbidopa/Levodopa (Carbidopa/Levodopa 50/200mg Ext Rel Tab) 1 tab PO HS [facility] Stop: 07/07/20 20:59 Last Admin: 06/07/20 20:38 Dose: 1 tab Documented by: Carbidopa/Levodopa (Carbidopa/Levodopa 25/100mg Tab) 3 tab PO QID [facility] Stop: 07/07/20 20:59 Last Admin: 06/07/20 20:34 Dose: 3 tab Documented by: Carbidopa/Levodopa (Carbidopa/Levodopa 25/100mg Ext Rel Tab) 1 tab PO DAILY@0730,1130 [facility] Stop: 07/08/20 07:29 Diphenhydramine HCl (Diphenhydramine Capsule 25 Mg Cap) 25 mg PO Q6H PRN PRN Reason: Allergic Rhinitis/Insomnia Stop: 07/06/20 12:37 Famotidine (Famotidine 20 Mg Tab) 20 mg PO Q12H PRN PRN Reason: Dyspepsia Stop: 07/06/20 12:37 Hydromorphone HCl (Hydromorphone Inj 0.5 Mg/0.5 Ml Syr) 0.5 mg IV Q3H PRN PRN Reason: MOD pain (scale 4-6) & Pre PT Stop: 06/19/20 17:55 Hydromorphone HCl (Hydromorphone Inj 1 Mg/Ml Syringe) 1 mg IV Q3H PRN PRN Reason: severe pain (scale 7-10) Stop: 06/19/20 17:55 Hydroxyzine HCl (Hydroxyzine Hcl 25 Mg Tab) 25 mg PO Q8H PRN PRN Reason: Anxiety Stop: 07/06/20 12:37 Promethazine HCl 12.5 mg/ (Sodium Chloride) 50.5 mls @ 204 mls/hr IV Q6H PRN PRN Reason: Nausea &/or Vomiting Stop: 07/06/20 12:37 Lorazepam (Ativan) 0.5 mg in 1 mls @ 0.5 mls/min IV Q8H PRN PRN Reason: Sedation/Anxiety Stop: 07/06/20 12:37 Dexamethasone 8 mg/ Syringe 2 mls @ 1 mls/min IV DAILY [facility] Stop: 07/07/20 08:59 Last Admin: 06/08/20 09:17 Dose: 1 mls/min Documented by: Potassium Chloride 30 meq/ (Sodium Chloride) 1,015 mls @ 80 mls/hr IV .[id number] [facility] Stop: 07/08/20 08:59 Last Admin: 06/08/20 09:17 Dose: 80 mls/hr Documented by: Influenza Virus Vaccine Quadrival (Do Not Administer Flu Vaccine) 1 ea N/A PRN PRN PRN Reason: Notification Stop: 07/06/20 12:37 Lorazepam (Lorazepam 0.5 Mg Tab) 0.5 mg PO Q8H PRN PRN Reason: Sedation/Anxiety Stop: 07/06/20 12:37 Magnesium Hydroxide (Magnesium Hydroxide Susp 30 Ml Udc) 30 ml PO DAILY PRN PRN Reason: Constipation Stop: 07/06/20 12:37 Last Admin: 06/07/20 23:04 Dose: 30 ml Documented by: Metoclopramide HCl (Metoclopramide Hcl Inj 5 Mg/Ml 2 Ml Vial) 10 mg IV Q6H PRN PRN Reason: Nausea &/or Vomiting Stop: 07/06/20 12:37 Miscellaneous (Remove Nicoderm Patch) 1 ea N/A DAILY@0859 [facility] Stop: 07/08/20 08:58 Last Admin: 06/08/20 09:17 Dose: Not Given Documented by: Naloxone HCl (Naloxone Hcl 0.4 Mg/1 Ml Vial/Carp) 0.1 mg IV Q5M PRN; Protocol PRN Reason: Oversedation/Resp Depression Stop: 07/06/20 12:37 Nicotine (Nicotine 7 Mg/24 Hr Tdsy) 7 mg TD [facility] Stop: 07/07/20 08:59 Last Admin: 06/08/20 09:17 Dose: Not Given Documented by: Olmesartan (Olmesartan Medoxomil 20 Mg Tab) 20 mg PO QAM [facility] Stop: 07/07/20 11:44 Last Admin: 06/07/20 12:56 Dose: 20 mg Documented by: Ondansetron HCl (Ondansetron Inj 2 Mg/Ml 2 Ml Vial) 4 mg IV Q6H PRN PRN Reason: Nausea &/or Vomiting Stop: 07/06/20 12:37 Ondansetron HCl (Ondansetron 4 Mg Od Tab) 4 mg PO Q6H PRN PRN Reason: Nausea Stop: 07/06/20 12:37 Oxycodone HCl (Oxycodone Hcl Ir 5 Mg Tab (Immediate Release)) 5 - 10 mg PO Q4H PRN PRN Reason: mod to severe pain Stop: 06/19/20 17:55 Pneumococcal Polyvalent Vaccine (Do Not Administer Pneumococcal Vaccine) 1 ea N/A PRN PRN PRN Reason: Notification Stop: 07/06/20 12:37 Polyethylene Glycol (Polyethylene (Miralax) 17 Gm Pack) 17 gm PO Q6 [facility] Stop: 07/07/20 05:59 Last Admin: 06/08/20 06:36 Dose: Not Given Documented by: Pramipexole Dihydrochloride (Pramipexole Dihydrochlo 0.25 Mg Tab) 0.125 mg PO TID [facility] Stop: 07/07/20 20:59 Last Admin: 06/07/20 20:33 Dose: 0.125 mg Documented by: Senna/Docusate Sodium (Docusate Sodium/Senna 50/8.6mg Tab) 2 tab PO HS [facility] Stop: 07/06/20 20:59 Last Admin: 06/07/20 20:34 Dose: 2 tab Documented by: Sodium Biphosphate/Sodium Phosphate (Sod Phosphate/Sod Biphosphate Enema 132 Ml Btl) 132 ml UT ONE PRN PRN Reason: Constipation Stop: 07/06/20 12:37 Tramadol HCl (Tramadol Hcl 50 Mg Tablet) 50 - 100 mg PO Q4H PRN PRN Reason: Moderate-Severe pain & Pre PT Stop: 07/05/20 17:55 PG Care Time/CCT Total # of Minutes Spent Total Time Spent with Patient: Total time spent is greater than 50% in coordination of care (as documented) at patient's floor/unit and/or counseling patient: Coding Level of Care Code 02022 Subseq Hosp Care Lvl 3 Diagnoses Postoperative ileus K91.89; K56.7 Status post lumbar surgery Z98.890 Gait disturbance R26.9 Parkinson disease G20 Hypertension I10 Prostate cancer C61 Constipation K59.00
[2020-06-08] MEDS: NICOTINE 7 MG/24 HR TDSY TD SCH (09:17)
[2020-06-08] MEDS: POTASSIUM CHLORIDE 30 MEQ in SODIUM CHLORIDE 0.9% 1000ML 1,000 ML IV SCH ×2 (09:17→23:48)
[2020-06-08] MEDS: dexAMETHasone 8 MG in SYRINGE 0 ML IV SCH (09:17)
[2020-06-08] MEDS ORDERED: ACETAMINOPHEN 1,000 MG/100 ML VIAL IV PRN (09:28)
[2020-06-08] MEDS ORDERED: GLYCERIN ADULT 12 SUPP/BOX SUPP PR ONE (09:28)
[2020-06-08] MEDS: OLMESARTAN MEDOXOMIL 20 MG TAB PO SCH (09:30)
--- NOTE | 2020-06-08 10:33 | Orthopedic Progress Note ---
Date of Service June 08, 2020 Assessment & Plan (1) Lumbar back pain with radiculopathy affecting lower extremity: Admission and Anticipated Discharge Date Admission Date: June 05, 2020 This time the patient seems to be struggling with the development of an ileus. Encourage him to continue activity as tolerated. We will maintain the VAUGHN drains today. Subjective Patient is resting comfortably. Physical Exam Physical Exam: Patient is in bed is neurologic intact. Results & Data ([facility]) Vital Signs (Past 12 Hours) Vital Signs Temp Pulse Resp BP BP Pulse Ox 06/08/20 07:58 36.3 C L 78 16 130/81 92 06/07/20 23:24 36.8 C 84 16 138/63 93
[2020-06-08] MEDS: PRAMIPEXOLE DIHYDROCHLO 0.25 MG TAB PO SCH ×3 (10:37→20:36)
[2020-06-08] MEDS: CARBIDOPA/LEVODOPA 25/100MG EXT REL TAB PO SCH ×2 (10:37→12:30)
[2020-06-08] MEDS: CARBIDOPA/LEVODOPA 25/100MG TAB PO SCH ×4 (10:38→20:36)
[2020-06-08] MEDS: AMANTADINE HCL 100 MG CAPSULE PO SCH ×3 (10:38→20:35)
--- NOTE | 2020-06-08 12:28 | XRay Report ---
XR lumbar spine 2-3V CLINICAL HISTORY: postop standing films. Status post lumbar fusion. COMPARISON STUDY: Lumbar spine 05/25/2018. FINDINGS: Status post L2-S1 posterior decompression fusion with pedicle screws and rods. There are bi lateral sacroiliac bolts. The hardware appears intact. There are disc spacers at L4-5 and L5-S1. No f ractures identified within the lumbar spine. There is a surgical drain at the laminectomy sites. Dila leena gas and fluid-filled loops of small bowel measuring up to 5.4 cm in diameter. This favors a posto perative ileus. IMPRESSION: 1. L2-S1 posterior decompression and fusion with pedicle screws and rods as well as bilateral sacroil iac bolts. The hardware appears intact. 2. No fractures within the lumbar spine. 3. Mildly dilated loops of small bowel. This favors a postoperative ileus. ACT 112: Negative or not required by law. Electronically signed by: Wesley Gibbs M.D. 06/08/2020 12:27 PM
[2020-06-08] MEDS: CARBIDOPA/LEVODOPA 50/200MG EXT REL TAB PO SCH (20:36)
[2020-06-09 07:01] LABS: Hematocrit (blood only) 36.6 % (42-52); Hemoglobin 12.4 g/dL (14.0-18.0); Mean Corpuscular Hemoglobin 29.8 pg (25-34); Mean Corpuscular Hgb Conc 33.9 g/dL (32-36); Mean Platelet Volume 9.7 fL (7.4-10.4); Platelet Count 312 K/uL (130-400); RDW Coefficient of Variation 15.8 % (11.5-14.5); RDW Standard Deviation 51.5 fL (36.4-46.3); Red Blood Count 4.16 M/uL (4.7-6.1); White Blood Count 10.57 K/uL (4.8-10.8)
[2020-06-09 07:30] LABS: BUN Creatinine Ratio 28.2 (10-20); Calcium 8.8 mg/dl (8.5-10.1); Est GFR (African American) 68.6; Est GFR (Non-African American) 59.2; Magnesium 2.2 mg/dl (1.8-2.4); Potassium 4.2 mmol/L (3.5-5.1)
[2020-06-09] MEDS ORDERED: POLYETHYLENE (MIRALAX) 17 GM PACK PO SCH (09:00)
--- NOTE | 2020-06-09 09:10 | XRay Report ---
KUB HISTORY: Follow up study in a patient with abdominal distention and ileus ileus, follow up COMPARISON: KUB 06/08/2020 FINDINGS: Lumbar spinal fusion hardware with discectomy changes and iliac bolts. Surgical drainage ca theter redemonstrated. Pelvic basin phlebolith. No urolith identified. There is persistent gaseous di stention of the stomach with mildly decreased gaseous distention of the small bowel now measuring up to 3.9 cm, previously 4.9 cm. Air is also noted within the large bowel which is not distended. IMPRESSION: Persistent gaseous distention of the stomach with decreased small bowel distention. Findings are sugg estive of persistent ileus. ACT 112: Negative or not required by law. The above report was generated using voice recognition software. It may contain grammatical, syntax o r spelling errors. Electronically signed by: Gregorio Carrillo M.D. 06/09/2020 9:09 AM
[2020-06-09] MEDS: dexAMETHasone 8 MG in SYRINGE 0 ML IV SCH (09:13)
[2020-06-09] MEDS: CARBIDOPA/LEVODOPA 25/100MG TAB PO SCH ×4 (09:15→20:40)
[2020-06-09] MEDS: CARBIDOPA/LEVODOPA 25/100MG EXT REL TAB PO SCH ×2 (09:15→14:01)
[2020-06-09] MEDS: AMANTADINE HCL 100 MG CAPSULE PO SCH ×3 (09:16→20:42)
[2020-06-09] MEDS: PRAMIPEXOLE DIHYDROCHLO 0.25 MG TAB PO SCH ×3 (09:17→20:40)
[2020-06-09] MEDS: NICOTINE 7 MG/24 HR TDSY TD SCH (09:18)
[2020-06-09] MEDS ORDERED: bisacodyL 10 MG SUPP PR STA (09:30)
--- NOTE | 2020-06-09 10:30 | Orthopedic Progress Note ---
Date of Service June 09, 2020 Assessment & Plan (1) Lumbar back pain with radiculopathy affecting lower extremity: Admission and Anticipated Discharge Date Admission Date: June 05, 2020 At this time continue physical therapy monitor his VAUGHN output. Anticipate being able to remove his drain tomorrow. He would be a candidate for rehab Thursday. Subjective Patient's pain is well controlled. His abdominal pain is improved. He is notes having a bowel movement and positive flatus. Physical Exam Physical Exam: On exam patient is in the chair at the bedside. Abdomen is soft. Is good strength testing lower extremities. Results & Data ([facility]) Vital Signs (Past 12 Hours) Vital Signs Temp Pulse Resp BP Pulse Ox 06/09/20 07:10 36.7 C 71 16 151/79 H 94 06/09/20 05:01 36.6 C 83 18 153/77 H 96 06/09/20 01:19 139/82 06/08/20 23:43 36.5 C 61 16 173/81 H 99
[2020-06-09] MEDS: POLYETHYLENE (MIRALAX) 17 GM PACK PO SCH (20:39)
[2020-06-09] MEDS: CARBIDOPA/LEVODOPA 50/200MG EXT REL TAB PO SCH (20:41)
--- NOTE | 2020-06-09 21:01 | Hospitalist Progress Note ---
Date of Service June 09, 2020 Assessment & Plan (1) Postoperative ileus: abdomen distended, vomiting morning of 06/08 NPO all day on 06/08, started IV fluids with 30 KCl to keep K > 4.0 tolerated liquids this morning, had a BM with suppository in afternoon and another large BM in evening advanced to low fiber diet this evening no nausea or vomiting taking Sinemet and other Parkinson's medications ileus is resolving clinically, keep on Miralax BID with Parkinson's, back off to once a day if he has loose stools (2) Status post lumbar surgery: Removal of instrumentation including the bilateral rods S1 pedicle screws and interbody cage at L5-S1. #2 exploration of fusion L5-S1. #3 revision decompression L5-S1 facetectomy on the right. #4 revision interbody fusion L5- S1. #5 open bilateral SI joint fusions. #6 placement of bilateral iliac bolts and larger bilateral S1 pedicle screws fixated with bony cement. #7 placement of infuse collagen sponge, master graft in the posterior gutters L5-S1 and in the bilateral SI joints as well as I factor in the interbody space. pain control, PT/OT and discharge planning per Dr. Morgan DVT proph: SCD, defer to ortho POD3, pain is minimal, OOB in the chair, participating with PT/OT ambulating in the hallway he is accepted to [facility] should be ready for discharge tomorrow since he is moving bowels today (3) Gait disturbance: due to severe pain also has some issues related to Parkinson's disease PT/OT consulted, plan for rehab walking so much better since surgery, no pain (4) Parkinson disease: Sinemet, takes ER 25/100 one tab in AM and noon and 2 tabs evening Sinemet 25/100 immediate release takes 3 tablets QID Amantidine he has been able to take his medications despite the ileus (5) Hypertension: continue home regimen of Olmesartan 20mg daily, hold the HCTZ component for now Cr is 1.2, K 4.2 BP elevated at times, could be due to stress (6) Prostate cancer: s/p prostatectomy and 39 cycles of radiation therapy (7) Constipation: was on Miralax q6 immediately post op had two BM today, feeling better continue Miralax BID Admission and Anticipated Discharge Date Admission Date: June 05, 2020 Subjective patient feeling a little better this morning, no nausea, no vomiting tried the glycerin suppository last night, no BM or flatus allowed him to have some liquids for breakfast and he took Miralax KUB this morning with persistent ileus but less dilation in bowels, no obstruction K is > 4, Cr stable, Hb down very slightly later in the afternoon tried dulcolax suppository, had a medium brown BM, felt better ate some food in evening and had another large BM, feeling a lot better no dyspnea, no chest pain, no fever/chills he has no back pain, not requiring pain medications, still has drain intact, no radicular pain he ambulated in the halls several times today, felt great, strength improved Review of Systems Review of Systems: All systems reviewed & are unremarkable except as noted in Subjective Physical Exam Constitutional: WD/WN, vitals as above + obese ENMT: Ears: + hearing impairment (wears bilateral hearing aides) Neck: trachea midline, no thyromegaly Respiratory: normal respiratory effort, lungs clear to auscultation Cardiovascular: RRR, no murmur, no edema Gastrointestinal (Abdomen): Inspection/Auscultation: + abdomen distended and + hypoactive bowel sounds Percussion/Palpation: abdomen soft and + tympanic to percussion; abdomen nontender, no guarding and abdomen not rigid Musculoskeletal: Head/Neck/Chest: normocephalic, head atraumatic and neck supple Extremities: + abnormal strength (some weakness in legs bilaterally); no cyanosis, no clubbing and no petechiae Skin: no rashes, warm and dry Neurologic: patellar DTR's 2+ bilat, sensation intact and PERRL, EOMI, accommodation nl, no face palsy, no dysarthria Motor/Sensory: + tremor (right upper extremity at rest) Psychiatric: A+Ox3, euthymic affect Lymphatic: no cervical or axillary lymphadenopathy Results & Data Results & Data ([facility]) Vital Signs (Past 12 Hours) Vital Signs Temp Pulse Resp BP Pulse Ox 06/09/20 15:12 36.8 C 70 16 149/83 H 93 Laboratory Results Laboratory Results - last 24 hr 06/09/20 06/09/20 06:25 06:25 WBC 10.57 RBC 4.16 L Hgb 12.4 L Hct 36.6 L MCV 88.0 MCH 29.8 MCHC 33.9 RDW Std Deviation 51.5 H RDW Coeff of Ashu 15.8 H Plt Count 312 MPV 9.7 Sodium 139 Potassium 4.2 D Chloride 106 Carbon Dioxide 30 Anion Gap 3.0 BUN 35 H Creatinine 1.25 Est Cr Clr Drug Dosing 80.0 Est GFR ( Amer) 68.6 Est GFR (Non-Af Amer) 59.2 BUN/Creatinine Ratio 28.2 H Glucose 88 Calcium 8.8 Magnesium 2.2 Diagnostic Findings KUB FINDINGS: Lumbar spinal fusion hardware with discectomy changes and iliac bolts. Surgical drainage catheter redemonstrated. Pelvic basin phlebolith. No urolith identified. There is persistent gaseous distention of the stomach with mildly decreased gaseous distention of the small bowel now measuring up to 3.9 cm, previously 4.9 cm. Air is also noted within the large bowel which is not distended. IMPRESSION: Persistent gaseous distention of the stomach with decreased small bowel dist ention. Findings are suggestive of persistent ileus. Medications Administered Current Inpatient Medications Al Hydrox/Mg Hydrox/Simethicone (Aluminum/Magnesium Susp 30 Ml Udc) 30 ml PO Q6H PRN PRN Reason: Dyspepsia Stop: 07/06/20 12:37 Amantadine HCl (Amantadine Hcl 100 Mg Capsule) 100 mg PO TID [facility] Stop: 07/05/20 20:59 Last Admin: 06/09/20 20:42 Dose: 100 mg Documented by: Carbidopa/Levodopa (Carbidopa/Levodopa 50/200mg Ext Rel Tab) 1 tab PO HS [facility] Stop: 07/07/20 20:59 Last Admin: 06/09/20 20:41 Dose: 1 tab Documented by: Carbidopa/Levodopa (Carbidopa/Levodopa 25/100mg Tab) 3 tab PO QID [facility] Stop: 07/07/20 20:59 Last Admin: 06/09/20 20:40 Dose: 3 tab Documented by: Carbidopa/Levodopa (Carbidopa/Levodopa 25/100mg Ext Rel Tab) 1 tab PO DAILY@0730,1130 [facility] Stop: 07/08/20 07:29 Last Admin: 06/09/20 14:01 Dose: 1 tab Documented by: Diphenhydramine HCl (Diphenhydramine Capsule 25 Mg Cap) 25 mg PO Q6H PRN PRN Reason: Allergic Rhinitis/Insomnia Stop: 07/06/20 12:37 Hydromorphone HCl (Hydromorphone Inj 0.5 Mg/0.5 Ml Syr) 0.5 mg IV Q3H PRN PRN Reason: MOD pain (scale 4-6) & Pre PT Stop: 06/19/20 17:55 Promethazine HCl 12.5 mg/ (Sodium Chloride) 50.5 mls @ 204 mls/hr IV Q6H PRN PRN Reason: Nausea &/or Vomiting Stop: 07/06/20 12:37 Lorazepam (Ativan) 0.5 mg in 1 mls @ 0.5 mls/min IV Q8H PRN PRN Reason: Sedation/Anxiety Stop: 07/06/20 12:37 Dexamethasone 8 mg/ Syringe 2 mls @ 1 mls/min IV DAILY [facility] Stop: 07/07/20 08:59 Last Admin: 06/09/20 09:13 Dose: 1 mls/min Documented by: Acetaminophen (Ofirmev) 1,000 mg in 100 mls @ 400 mls/hr IV Q8H PRN PRN Reason: Pain Stop: 06/11/20 09:27 Influenza Virus Vaccine Quadrival (Do Not Administer Flu Vaccine) 1 ea N/A PRN PRN PRN Reason: Notification Stop: 07/06/20 12:37 Magnesium Hydroxide (Magnesium Hydroxide Susp 30 Ml Udc) 30 ml PO DAILY PRN PRN Reason: Constipation Stop: 07/06/20 12:37 Last Admin: 06/07/20 23:04 Dose: 30 ml Documented by: Miscellaneous (Remove Nicoderm Patch) 1 ea N/A DAILY@0859 [facility] Stop: 07/08/20 08:58 Last Admin: 06/09/20 09:18 Dose: Not Given Documented by: Naloxone HCl (Naloxone Hcl 0.4 Mg/1 Ml Vial/Carp) 0.1 mg IV Q5M PRN; Protocol PRN Reason: Oversedation/Resp Depression Stop: 07/06/20 12:37 Nicotine (Nicotine 7 Mg/24 Hr Tdsy) 7 mg TD QAM [facility] Stop: 07/07/20 08:59 Last Admin: 06/09/20 09:18 Dose: Not Given Documented by: Olmesartan (Olmesartan Medoxomil 20 Mg Tab) 20 mg PO QAM [facility] Stop: 07/07/20 11:44 Last Admin: 06/08/20 09:30 Dose: Not Given Documented by: Ondansetron HCl (Ondansetron Inj 2 Mg/Ml 2 Ml Vial) 4 mg IV Q6H PRN PRN Reason: Nausea &/or Vomiting Stop: 07/06/20 12:37 Pneumococcal Polyvalent Vaccine (Do Not Administer Pneumococcal Vaccine) 1 ea N/A PRN PRN PRN Reason: Notification Stop: 07/06/20 12:37 Polyethylene Glycol (Polyethylene (Miralax) 17 Gm Pack) 17 gm PO Q6 [facility] Stop: 07/07/20 05:59 Last Admin: 06/08/20 06:36 Dose: Not Given Documented by: Polyethylene Glycol (Polyethylene (Miralax) 17 Gm Pack) 17 gm PO BID [facility] Stop: 07/09/20 20:59 Last Admin: 06/09/20 20:39 Dose: 17 gm Documented by: Pramipexole Dihydrochloride (Pramipexole Dihydrochlo 0.25 Mg Tab) 0.125 mg PO TID [facility] Stop: 07/07/20 20:59 Last Admin: 06/09/20 20:40 Dose: 0.125 mg Documented by: PG Care Time/CCT Total # of Minutes Spent Total Time Spent with Patient: Total time spent is greater than 50% in coordination of care (as documented) at patient's floor/unit and/or counseling patient: Coding Level of Care Code 21587 Subseq Hosp Care Lvl 3 Diagnoses Postoperative ileus K91.89; K56.7 Status post lumbar surgery Z98.890 Gait disturbance R26.9 Parkinson disease G20 Hypertension I10 Prostate cancer C61 Constipation K59.00
[2020-06-10 08:14] VITALS: BP 156/83; PULSE 64; TEMP 96.8; O2SAT 99
[2020-06-10] MEDS: OLMESARTAN MEDOXOMIL 20 MG TAB PO SCH (08:33)
[2020-06-10] MEDS: dexAMETHasone 8 MG in SYRINGE 0 ML IV SCH (08:33)
[2020-06-10] MEDS: CARBIDOPA/LEVODOPA 25/100MG EXT REL TAB PO SCH ×2 (08:33→12:11)
[2020-06-10] MEDS: PRAMIPEXOLE DIHYDROCHLO 0.25 MG TAB PO SCH ×2 (08:34→13:30)
[2020-06-10] MEDS: AMANTADINE HCL 100 MG CAPSULE PO SCH ×2 (08:35→13:30)
[2020-06-10] MEDS: NICOTINE 7 MG/24 HR TDSY TD SCH (08:35)
[2020-06-10] MEDS: CARBIDOPA/LEVODOPA 25/100MG TAB PO SCH ×2 (08:36→13:30)
[2020-06-10] MEDS: POLYETHYLENE (MIRALAX) 17 GM PACK PO SCH (08:48)
--- NOTE | 2020-06-10 09:16 | Discharge Summary ---
Date of Service June 10, 2020 Principal Diagnosis Failed hardware L5-S1 Discharge Data Allergies Allergy/AdvReac Type Severity Reaction Status Date / Time No Known Allergies Allergy Verified 06/05/20 16:54 Consultations 06/05/20 17:56 Consult Anesthesiology Routine Consult Internal Medicine Routine Procedures Performed Operation Date: 06/06/20 08:20 Actual Procedures p L2-S1 Revision Fusion, Application of Bone Morphogenetic Protein, Interbody Fusion L5-S1, Iliac bolts. - Wilbert Morgan DO s Removed hardware: bilateral rods, S1 pedicle screws and interbody cage L5-S1 - Wilbert Morgan DO Ordered Studies 06/06/20 08:20 FL fluoroscopy <1hr Routine FL lumbar spine 2-3V Routine Hospital Course (1) Status post lumbar surgery: Patient was admitted directly from my office earlier this week for evidence of migration of hardware at the L5-S1 level and severe back and bilateral leg pain. He underwent surgery next day for revision decompression fusion L5-S1 tolerated this well was taken to orthopedic for postoperative. He did suffer with a short course of a postop ileus this resolved very quickly. His strength was improving significantly. His pain was well controlled. VAUGHN drain decreasing appropriately. Subsequently discharged to rehab. Discharge orders instructions were on the chart for further review. Total Time Total Time Spent Total Time Spent (In Minutes): 20 minutes Discharge Plan Discharge Items Patient Disposition: Transfer Inpatient Rehab Fac Reason For Visit: BACK PAIN-REF BY DR. MORGAN Discharge Diagnosis: Failed hardware with lumbar spinal stenosis Activity: As commented below Non-emergency contact: Primary Care Provider Call non-emergency contact if: you have any medication questions Follow-up/Referrals: Dionte Rodriges DO [Primary Care Provider] - Diet: Regular Addtl Attending Provider Instructions: ACTIVITY RECOMMENDATIONS: SELF CARE INSTRUCTIONS AFTER THORACIC/LUMBAR FUSIONS 1. You may walk to your tolerance. It is good exercise for your legs and back. Expect some back and intermittent leg aches and pains. 2. You may perform "counter-top" level activities (make a sandwich, harvinder with a project, etc.). 3. No bending or lifting of more than 10 pounds or back twisting of any nature (roll like a log when turning in bed). 4. You may ride in a car for 20-30 minutes at a time. No driving until after your first visit with your doctor. 5. Frequent changes of position and restricting sitting to 30 minutes at a time will help limit the amount of back spasms and stiffness you may experience. 6. You may discontinue the use of ambulatory aids (cane, crutches, etc.) once your strength and confidence allow. 7. You may routing machine operator the shower and let water strike your incision when you arrive home at least once daily. Do not take a tub bath, sit in a hot tub or go into a swimming pool until after your first recheck in the office. SPECIAL CARE INSTRUCTIONS: VERY IMPORTANT TO READ AND REVIEW A. Your surgical incision has been closed with a cosmetic suture under the skin that will dissolve in about 6 weeks. In 14 days, you can use a pair of clean scissors and cut the suture that is left outside of the skin at the ends of your incision. 1. The small skin tapes can be removed 7 days after surgery if they have not fallen off by that point. 2. You may keep the wound open to air as much as possible to promote healing after post-op day number 5 unless told otherwise by your doctor. 3. If you think the wound looks like it is becoming infected (redness or worsening drainage) and/or you are experiencing fever, chill or worsening back pain and muscle spasms, contact the office so that we may evaluate you as soon as possible. B. Complications are uncommon, but please contact us if you have any signs or symptoms of: 1. wound infection (fever higher than 102.5 degrees F, redness, separation of wound, drainage, or increasing pain from the incision) 2. blood clots in legs (pain, swelling, redness and warmth in legs) 3. urinary tract infection (fever higher than 102.5 degrees F, burning upon urination or increased frequency of urination) 4. nerve problems (inability to walk on your toes or heels, numbness, loss of bowel or bladder control) 5. any other symptoms that concern you C. Please call the office at if you have any concerns or questions about your operation or recovery. D. No smoking! Smoking drastically decreases the chance of a solid fusion. E. Do not take any anti-inflammatory medications (Indocin, Advil, Motrin, Aspirin, Naprosyn, etc.) as these may inhibit the chance of a solid fusion. Tylenol is okay to take for pain. MANAGING PAIN AFTER SPINAL SURGERY 1. Narcotic medication is intended for short-term use and will be provided for surgical pain. Surgical pain usually lasts for a period of 4-6 weeks. Narcotic medication includes Percocet, Vicodin, Darvocet, Tylenol #3 or Lortab. 2. Longer-term pain is more appropriately treated with non-narcotic medication such as Tylenol ES. 3. Muscle spasm is not appropriately treated with narcotics. Muscle relaxers such as Soma, Flexeril or Skelaxin can be used along with Tylenol ES. 4. Remember that we all live with some "aches and pains". This is not unusual or uncommon after an injury or as we get older. a. Back pain is expected and may include muscle spasms for 4 to 6 weeks after surgery. The pain should gradually improve. If the pain worsens for no apparent reason, please contact the office. b. Intermittent leg pain may also be experienced and should not be concerned about unless it worsens for no apparent reason. If so, please contact the office. 5. We will provide appropriate medication within the normal guidelines of their prescribed use. We will also be very cautious and aware of potential abuse and extended duration of patients' medication needs. a. Pain medications are for your comfort and to assist with sleep and rest so that the tissue can heal. They are not provided in order to return to normal activity and should not be used through the day. To do so or worsening pain at night can result from ongoing tissue damage and development of tolerance to the prescribed medicine. 6. Please allow 2-3 days to process refills. Prescriptions will not be mailed but must be picked up at the office. FOLLOW UP VISIT: Keep your scheduled follow-up appointment. Any questions, please call the office at . Pending Studies at Discharge: No Stand-Alone Forms: My [facility] Skilled Items Patient informed of condition?: Yes DNR: No Discharge Level of Care: Acute rehab Communicable Disease: No Discharge Prognosis: Improving Lines: None Urinary Catheter: No Medications and DC Order Prescriptions: New tramadol 50 mg tablet 50 mg PO Q6H PRN (Reason: pain, moderate) Qty: 30 RF: 0 oxycodone 5 mg tablet 5 mg PO Q6H PRN (Reason: pain, severe) Qty: 30 RF: 0 Continued olmesartan-hydrochlorothiazide [Benicar HCT] 20-12.5 mg tablet 1 tab PO DAILY Qty: 90 RF: 3 amantadine HCl 100 mg tablet 100 mg PO TID Qty: 90 RF: 5 baclofen 5 mg tablet 5 mg PO BID Qty: 30 RF: 0 pramipexole 0.25 mg tablet 0.25 mg PO TID RF: 0 carbidopa-levodopa [Sinemet] 25-100 mg tablet See Rx Instructions .ROUTE .COMPLEX RF: 0 Discontinued oxycodone 5 mg tablet 5 mg PO Q8H PRN (Reason: pain (scale score 7-10)) Qty: 20 RF: 0 Discharge Orders: Discharge Order (Routine); Ordered 06/10/20 Ordered By: Wilbert Morgan Admission Data Admit Date/Time: 06/05/20 16:05 Attending Provider: Wilbert Morgan Admit Provider: Wilbert Morgan Primary Care Provider: Dionte Rodriges Other Providers: Solo Rasmussen ; Larry Knutson ; [facility]
--- NOTE | 2020-06-10 09:55 | Hospitalist Progress Note ---
Date of Service June 10, 2020 Assessment & Plan (1) Postoperative ileus: abdomen distended, vomiting morning of 06/08 NPO all day on 06/08, started IV fluids with 30 KCl to keep K > 4.0 tolerated liquids on 06/09, had a BM with suppository in afternoon and another large BM in evening had another BM in morning on 06/10, passing flatus, bowels sounds are normal no nausea or vomiting taking Sinemet and other Parkinson's medications ileus is resolved clinically, keep on Miralax BID with Parkinson's, back off to once a day if he has loose stools (2) Status post lumbar surgery: Removal of instrumentation including the bilateral rods S1 pedicle screws and interbody cage at L5-S1. #2 exploration of fusion L5-S1. #3 revision decompression L5-S1 facetectomy on the right. #4 revision interbody fusion L5- S1. #5 open bilateral SI joint fusions. #6 placement of bilateral iliac bolts and larger bilateral S1 pedicle screws fixated with bony cement. #7 placement of infuse collagen sponge, master graft in the posterior gutters L5-S1 and in the bilateral SI joints as well as I factor in the interbody space. pain control, PT/OT and discharge planning per Dr. Morgan DVT proph: SCD, defer to ortho POD #4, pain is minimal, OOB in the chair, participating with PT/OT ambulating in the hallway he is accepted to [facility], will discharge there this afternoon (3) Gait disturbance: due to severe pain also has some issues related to Parkinson's disease PT/OT consulted, plan for rehab walking so much better since surgery, no pain (4) Parkinson disease: Sinemet, takes ER 25/100 one tab in AM and noon and 2 tabs evening Sinemet 25/100 immediate release takes 3 tablets QID Amantadine 100mg TID Pramipexole 0.125mg TID he has been able to take his medications despite the ileus (5) Hypertension: continue home regimen of Olmesartan 20mg daily Cr is 1.2, K 4.2 BP elevated at times, could be due to stress resume the HCTZ component on discharge (6) Prostate cancer: s/p prostatectomy and 39 cycles of radiation therapy (7) Constipation: was on Miralax q6 immediately post op had two BM on 06/09 and one BM on 06/10, feeling better continue Miralax BID on discharge to keep regular Admission and Anticipated Discharge Date Admission Date: June 05, 2020 Subjective patient feeling much better this morning, had another BM, passing a lot of flatus, bowel sounds much more active he is breathing well, no chest pain taking his medications, no nausea, ate most of his breakfast d/w , he can go to [facility] today d/w Dr. Morgan I reviewed his medications for discharge, made sure they were correct his can transport to rehab Review of Systems Review of Systems: All systems reviewed & are unremarkable except as noted in Subjective Constitutional: no fever, no chills, no sweats, no fatigue and no weakness Respiratory: no cough and no dyspnea Cardiovascular: no chest pain Gastrointestinal: no abdominal pain, no nausea, no vomiting, no constipation and no diarrhea/loose stools Musculoskeletal: + back pain (lumbar, minimal, just post op pain) Physical Exam Constitutional: WD/WN, vitals as above + obese ENMT: Ears: + hearing impairment (wears bilateral hearing aides) Neck: trachea midline, no thyromegaly Respiratory: normal respiratory effort, lungs clear to auscultation Cardiovascular: RRR, no murmur, no edema Gastrointestinal (Abdomen): Inspection/Auscultation: abdomen normal to inspection and normal bowel sounds; abdomen not distended P ercussion/Palpation: abdomen soft and normal to percussion; abdomen nontender, no guarding and abdomen not rigid Musculoskeletal: Head/Neck/Chest: normocephalic, head atraumatic and neck supple Spine: + lumbar spinal tenderness Extremities: + abnormal strength (some weakness in legs bilaterally); no cyanosis, no clubbing and no petechiae Skin: no rashes, warm and dry Neurologic: patellar DTR's 2+ bilat, sensation intact and PERRL, EOMI, accommodation nl, no face palsy, no dysarthria Motor/Sensory: + tremor (right upper extremity at rest) Psychiatric: A+Ox3, euthymic affect Lymphatic: no cervical or axillary lymphadenopathy Results & Data Results & Data ([facility]) Vital Signs (Past 12 Hours) Vital Signs Temp Pulse Resp BP BP Pulse Ox 06/10/20 08:12 36 C L 64 16 156/83 H 99 06/09/20 22:35 36.7 C 60 18 127/79 97 Medications Administered Current Inpatient Medications Al Hydrox/Mg Hydrox/Simethicone (Aluminum/Magnesium Susp 30 Ml Udc) 30 ml PO Q6H PRN PRN Reason: Dyspepsia Stop: 07/06/20 12:37 Amantadine HCl (Amantadine Hcl 100 Mg Capsule) 100 mg PO TID [facility] Stop: 07/05/20 20:59 Last Admin: 06/10/20 08:35 Dose: 100 mg Documented by: Carbidopa/Levodopa (Carbidopa/Levodopa 50/200mg Ext Rel Tab) 1 tab PO HS [facility] Stop: 07/07/20 20:59 Last Admin: 06/09/20 20:41 Dose: 1 tab Documented by: Carbidopa/Levodopa (Carbidopa/Levodopa 25/100mg Tab) 3 tab PO QID [facility] Stop: 07/07/20 20:59 Last Admin: 06/10/20 08:36 Dose: 3 tab Documented by: Carbidopa/Levodopa (Carbidopa/Levodopa 25/100mg Ext Rel Tab) 1 tab PO DAILY@0730,1130 [facility] Stop: 07/08/20 07:29 Last Admin: 06/10/20 08:33 Dose: 1 tab Documented by: Diphenhydramine HCl (Diphenhydramine Capsule 25 Mg Cap) 25 mg PO Q6H PRN PRN Reason: Allergic Rhinitis/Insomnia Stop: 07/06/20 12:37 Hydromorphone HCl (Hydromorphone Inj 0.5 Mg/0.5 Ml Syr) 0.5 mg IV Q3H PRN PRN Reason: MOD pain (scale 4-6) & Pre PT Stop: 06/19/20 17:55 Promethazine HCl 12.5 mg/ (Sodium Chloride) 50.5 mls @ 204 mls/hr IV Q6H PRN PRN Reason: Nausea &/or Vomiting Stop: 07/06/20 12:37 Lorazepam (Ativan) 0.5 mg in 1 mls @ 0.5 mls/min IV Q8H PRN PRN Reason: Sedation/Anxiety Stop: 07/06/20 12:37 Dexamethasone 8 mg/ Syringe 2 mls @ 1 mls/min IV DAILY MANDIE Stop: 07/07/20 08:59 Last Admin: 06/10/20 08:33 Dose: 1 mls/min Documented by: Acetaminophen (Ofirmev) 1,000 mg in 100 mls @ 400 mls/hr IV Q8H PRN PRN Reason: Pain Stop: 06/11/20 09:27 Influenza Virus Vaccine Quadrival (Do Not Administer Flu Vaccine) 1 ea N/A PRN PRN PRN Reason: Notification Stop: 07/06/20 12:37 Magnesium Hydroxide (Magnesium Hydroxide Susp 30 Ml Udc) 30 ml PO DAILY PRN PRN Reason: Constipation Stop: 07/06/20 12:37 Last Admin: 06/07/20 23:04 Dose: 30 ml Documented by: Miscellaneous (Remove Nicoderm Patch) 1 ea N/A DAILY@0859 [facility] Stop: 07/08/20 08:58 Last Admin: 06/10/20 09:45 Dose: Not Given Documented by: Naloxone HCl (Naloxone Hcl 0.4 Mg/1 Ml Vial/Carp) 0.1 mg IV Q5M PRN; Protocol PRN Reason: Oversedation/Resp Depression Stop: 07/06/20 12:37 Nicotine (Nicotine 7 Mg/24 Hr Tdsy) 7 mg TD QAM [facility] Stop: 07/07/20 08:59 Last Admin: 06/10/20 08:35 Dose: Not Given Documented by: Olmesartan (Olmesartan Medoxomil 20 Mg Tab) 20 mg PO QAM [facility] Stop: 07/07/20 11:44 Last Admin: 06/10/20 08:33 Dose: 20 mg Documented by: Ondansetron HCl (Ondansetron Inj 2 Mg/Ml 2 Ml Vial) 4 mg IV Q6H PRN PRN Reason: Nausea &/or Vomiting Stop: 07/06/20 12:37 Pneumococcal Polyvalent Vaccine (Do Not Administer Pneumococcal Vaccine) 1 ea N/A PRN PRN PRN Reason: Notification Stop: 07/06/20 12:37 Polyethylene Glycol (Polyethylene (Miralax) 17 Gm Pack) 17 gm PO Q6 [facility] Stop: 07/07/20 05:59 Last Admin: 06/08/20 06:36 Dose: Not Given Documented by: Polyethylene Glycol (Polyethylene (Miralax) 17 Gm Pack) 17 gm PO BID [facility] Stop: 07/09/20 20:59 Last Admin: 06/10/20 08:48 Dose: 17 gm Documented by: Pramipexole Dihydrochloride (Pramipexole Dihydrochlo 0.25 Mg Tab) 0.125 mg PO TID MANDIE Stop: 07/07/20 20:59 Last Admin: 06/10/20 08:34 Dose: 0.125 mg Documented by: PG Care Time/CCT Total # of Minutes Spent Total Time Spent with Patient: Total time spent is greater than 50% in coordination of care (as documented) at patient's floor/unit and/or counseling patient: Coding Level of Care Code 12393 Subseq Hosp Care Lvl 3 Diagnoses Postoperative ileus K91.89; K56.7 Status post lumbar surgery Z98.890 Gait disturbance R26.9 Parkinson disease G20 Hypertension I10 Prostate cancer C61 Constipation K59.00
--- NOTE | 2020-06-21 12:56 | Coding Query ---
BMI To promote full compliance with coding requirements relating to patient care, physician participation is requested in all cases of ignition mechanic uncertainty. Please assist us with the question(s) below: Please place an X within the parenthesis (x). If other, please document: BMI in excess of 38 was documented in this record for this patient. If the BMI is significant, please check the box that provides a more specific associated diagnosis: ( ) Overweight/Obese (x ) Obesity ( ) Morbid obesity ( ) Obesity Hypoventilation Syndrome (OHS) ( ) Heathy weight, not significant ( ) Underweight/Thin ( ) Other, please specify Thank you Diane RIGGS
--- NOTE | 2020-06-21 12:56 | Coding Query ---
Your help is needed for correct coding of this account; please clarify if the patients Post-operative Ileus was: ( x) expected out of the surgery ( ) unexpected complication from the surgery ( )other please specify Thank you Diane RIGGS
== END 2020-06-10 15:04 | DRG 454 ==
LOC: ED 14:00 → 3N 16:05

== ENCOUNTER 2021-09-02 14:37 | Inpatient (IN) ==
[2021-09-02] MEDS ORDERED: ONDANSETRON INJ 2 MG/ML 2 ML VIAL IV STA (15:02)
[2021-09-02] MEDS ORDERED: MoRPHine SULFATE 4 MG/ML 1 ML CARP\\VIAL IV STA (15:02)
[2021-09-02] MEDS ORDERED: MoRPHine SULFATE 4 MG/ML 1 ML CARP\\VIAL IV PRN (15:02)
--- NOTE | 2021-09-02 15:07 | Emergency Department Note ---
Impression & Plan Closed hip fracture, Parkinson disease, Fall ED Provider Note NAME: ARELI EDWARDS AGE: 70 SEX: M : 1950 ARRIVES VIA: Ambulance INFORMANT: [Patient] ED PROVIDER(S): [Boston Lindquist MD] CHIEF COMPLAINT: Fall, hip pain HISTORY OF PRESENT ILLNESS: The patient is a 70-year-old male who states that about an hour ago, he lost his footing and fell onto his right hip. The patient states that he cannot walk on the leg now. He cannot get up on his own. The pain is worse with any movement. There was no loss of consciousness. No headache or neck pain. He denies any other injuries. The pain is moderate in severity. He was brought by ambulance. REVIEW OF SYSTEMS: See HPI for pertinent positives and negatives. A total of ten systems were reviewed and were otherwise negative. PMHx/PSHx: See Below SOCIAL HISTORY: See Below. PHYSICAL EXAM: GENERAL: Patient is in no acute distress. HEENT: No acute trauma, normocephalic atraumatic, mucous membranes moist, no nasal congestion, no scleral icterus. NECK: No stridor, no adenopathy, no meningismus, trachea is midline. LUNGS: Clear to auscultation bilaterally, no wheeze, no rhonchi, breath sounds equal. HEART: Without murmurs gallops or rubs, regular rate and rhythm. ABDOMEN: Soft, nontender, bowel sounds positive, no peritonitis. EXTREMITIES: No cyanosis, mild bilateral pedal edema, there is an abrasion to the right posterior elbow but no pain to move the elbow joint. No right elbow j oint effusion. The patient is tender to the lateral posterior aspect of the right hip. There is no gross deformity to the right lower extremity. Right hip pain worsens with any movement. NEUROLOGIC: Oriented x 3, no acute motor or sensory deficits, no focal weakness. Constant movement of his extremities consistent with his Parkinson's disease. SKIN: No rash, no jaundice, no diaphoresis. DIFFERENTIAL DIAGNOSIS: Fracture, dislocation, neurovascular compromise, compartment syndrome, soft tissue injury, as well as other pathologies. EMERGENCY DEPARTMENT COURSE/PROCEDURES: ECG: Indication was hip fracture. The ECG shows a sinus rhythm with some PACs. The rate is 73. There is some LVH present. There is no ST elevation, no PVCs. The QTc is 434. Continuous Cardiac Monitoring: An order was placed for continuous cardiac monitoring. The monitor shows a rate of 75 with sinus rhythm with PACs.. MEDICAL DECISION MAKING: There is no leukocytosis or concerning anemia. There is a normal platelet count. No coagulopathy. No significant electrolyte abnormality or renal failure. COVID testing returned negative. Chest x-ray does not show pneumonia or CHF. Right hip and pelvis films were performed, he does have a right hip fracture with minimal displacement. No pelvic fracture. The patient received IV Zofran for nausea, IV morphine for pain. I did speak with orthopedics. The patient will be seen by them for intervention. I spoke with the patient and case management. The on-call hospitalist has been consulted. Past Med/Surg History Medical History (Updated 09/02/21 @ 17:52 by Boston Lindquist MD) Cervical disc disease Degenerative disc disease Hearing deficit WEARS 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 Hypertension Osteoarthritis Parkinson's disease Prostate cancer DX 04/2018. PATIENT HAD 39 TREATMENTS OF RADIATION AFTER THE PROSTATECTOMY. Radiculopathy BLLE RADICULOPATHY AND NUMBNESS. UNABLE TO STAND FOR EVEN SHORT PERIODS OF TIME. HAS TO CURRENTLY HELP HIM WITH MOST OF HIS ADL'S D/T BACK. Surgical History History of knee replacement B/L S/P colonoscopy S/P prostatectomy 06/2018 Family History Grandmother (Maternal) , PASSED AT AGE 76 (OVARIAN CANCER) No problems noted. Grandfather (Paternal) , PASSED IN 60'S ("CHEST" CANCER) No problems noted. Mother No problems noted. Father , PASSED AGE 75 ([place]) No problems noted. Brother No problems noted. Brother No problems noted. Daughter No problems noted. Daughter No problems noted. 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 Feels Safe at Home: Yes caffeine: Yes (Occaisonally ) during the past year weight has: remained stable Assistive Devices: Walker Allergies Allergies Allergy/AdvReac Type Severity Reaction Status Date / Time No Known Allergies Allergy Verified 07/11/21 09:48 Home Meds Home Medications Medication Instructions Recorded Confirmed amantadine HCl 100 mg tablet 100 mg PO TID tab 08/14/20 09/02/21 docusate sodium 100 mg capsule 100 mg PO BID PRN 09/02/21 09/02/21 (Colace) polyethylene glycol 3350 17 17 g PO DAILY PRN 09/02/21 09/02/21 gram/dose oral powder (Miralax) Previous Rx's Medication Instructions Recorded pramipexole 0.5 mg tablet 0.25 mg PO TID #90 tab 05/30/21 carbidopa 25 mg-levodopa 100 mg See Rx Instructions .ROUTE 07/23/21 tablet (Sinemet) .COMPLEX #360 tab Results & Data (ED) Vital Signs Vital Signs - 24 hr 09/02/21 14:23 09/02/21 14:49 09/02/21 16:55 Temperature 36.9 C 36.9 C Temperature Source Oral Oral Pulse Rate 84 Pulse Rate [Radial] 84 75 Respiratory Rate 17 17 20 Respiratory Effort / Characteristics Non-Labored Non-Labored Non-Labored Spontaneous Respiratory Depth Normal Normal Normal Respiratory Pattern Regular Regular Blood Pressure 129/107 H Blood Pressure [Right Arm] 129/107 H Blood Pressure Mean 114 Blood Pressure Mean [Right Arm] 114 Blood Pressure Position Lying Blood Pressure Position [Right Arm] Lying Pulse Oximetry 98 98 98 Oxygen Delivery Method Room Air Room Air Room Air Sepsis New/Unexplained Change in Mental Status No Sepsis Action Taken by Nursing No Action Required 09/02/21 17:33 Temperature Temperature Source Pulse Rate Pulse Rate [Radial] Respiratory Rate Respiratory Effort / Characteristics Respiratory Depth Respiratory Pattern Blood Pressure Blood Pressure [Right Arm] 167/93 H Blood Pressure Mean Blood Pressure Mean [Right Arm] 117 Blood Pressure Position Blood Pressure Position [Right Arm] Lying Pulse Oximetry Oxygen Delivery Method Sepsis New/Unexplained Change in Mental Status Sepsis Action Taken by Detention Medications Current Medication List: was personally reviewed by me Laboratory Data Attestation: I reviewed the patient's lab results. Result diagrams: 09/02/21 15:09 09/02/21 15:09 Lab Results 09/02/21 09/02/21 09/02/21 Range/Units 15:09 15:09 15:54 WBC 6.14 (4.8-10.8) K/ul RBC 5.34 (4.63-6.08) M/uL Hgb 15.5 (14.0-18.0) g/dl Hct 45.9 (40.1-51.0) % MCV 86.0 (80.0-100.0) fL MCH 29.0 (25.0-34.0) pg MCHC 33.8 (32.0-36.0) g/dL RDW Std Deviation 44.1 (36.4-46.3) fL RDW Coeff of Ashu 14.2 (11.5-14.5) % Plt Count 229 (130-400) K/uL MPV 9.9 (9.4-12.4) fL PT 10.9 (9.0-12.0) Seconds INR 1.0 (0.9-1.1) APTT 26.4 (21.0-31.0) Seconds PTT Ratio 1.0 Sodium 138 (136-145) mmol/L Potassium 3.9 (3.5-5.1) mmol/L Chloride 106 (98-107) mmol/L Carbon Dioxide 27 (21-32) mmol/L Anion Gap 5 (3-11) BUN 18 (6-23) mg/dl Creatinine 0.96 (0.6-1.4) mg/dl Est Cr Clr Drug Dosing 104.5 ml/min Est GFR ( Amer) 93.8 ml/min Est GFR (Non-Af Amer) 80.9 ml/min BUN/Creatinine Ratio 18.8 (10-20) Glucose 95 (70-99(Fasting)) mg/dl Calcium 9.1 (8.5-10.1) mg/dl SARS-CoV-2, RNA, NAAT (NEGATIVE) 09/02/21 Range/Units 17:05 WBC (4.8-10.8) K/ul RBC (4.63-6.08) M/uL Hgb (14.0-18.0) g/dl Hct (40.1-51.0) % MCV (80.0-100.0) fL MCH (25.0-34.0) pg MCHC (32.0-36.0) g/dL RDW Std Deviation (36.4-46.3) fL RDW Coeff of Ashu (11.5-14.5) % Plt Count (130-400) K/uL MPV (9.4-12.4) fL PT (9.0-12.0) Seconds INR (0.9-1.1) APTT (21.0-31.0) Seconds PTT Ratio Sodium (136-145) mmol/L Potassium (3.5-5.1) mmol/L Chloride (98-107) mmol/L Carbon Dioxide (21-32) mmol/L Anion Gap (3-11) BUN (6-23) mg/dl Creatinine (0.6-1.4) mg/dl Est Cr Clr Drug Dosing ml/min Est GFR ( Amer) ml/min Est GFR (Non-Af Amer) ml/min BUN/Creatinine Ratio (10-20) Glucose (70-99(Fasting)) mg/dl Calcium (8.5-10.1) mg/dl SARS-CoV-2, RNA, NAAT NEGATIVE (NEGATIVE) Administered Medications Discontinued Medications Amantadine HCl (Amantadine Hcl 100 Mg Capsule) 100 mg PO NOW STA Stop: 09/02/21 16:47 Last Admin: 09/02/21 17:17 Dose: 100 mg Documented by: [id number] Carbidopa/Levodopa (Carbidopa/Levodopa 25/100mg Tab Odt) 1 tab PO NOW STA Stop: 09/02/21 16:47 Last Admin: 09/02/21 17:17 Dose: 1 tab Documented by: [id number] Morphine Sulfate (Morphine Sulfate 4 Mg/Ml 1 Ml Carp\\Vial) 4 mg IV NOW STA Stop: 09/02/21 15:03 Last Admin: 09/02/21 15:14 Dose: 4 mg Documented by: [id number] Ondansetron HCl (Ondansetron Inj 2 Mg/Ml 2 Ml Vial) 4 mg IV NOW STA Stop: 09/02/21 15:03 Last Admin: 09/02/21 15:14 Dose: 4 mg Documented by: [id number] Pramipexole Dihydrochloride (Pramipexole Dihydrochlo 0.25 Mg Tab) 0.25 mg PO NOW STA Stop: 09/02/21 16:47 Last Admin: 09/02/21 17:17 Dose: 0.25 mg Documented by: [id number] Imaging Data Radiologist's Impression: Hip/Pelvis X-Ray 09/02/21 15:02 XR hip RT 2V w pelvis CLINICAL HISTORY: Status post fall with right hip pain. COMPARISON STUDY: 08/12/2018 TECHNIQUE: Pelvis and 2 right hip views FINDINGS: Bones: There is a nondisplaced fracture present through the base of the femoral neck with very minimal cortical offset seen medially. The remaining bones are intact. The patient is status post laminectomies and internal fixation of the lumbar spine and SI joints. There is no lytic or blastic lesion. Joints: The joint spaces are maintained. The bones are in anatomic alignment. Soft tissues: There is no focal soft tissue abnormality. There is no radiopaque foreign body. IMPRESSION: 1. Nondisplaced fracture through the base of the right femoral neck. ACT 112: Negative or not required by law. Electronically signed by: Everett Joseph M.D. 09/02/2021 3:41 PM Chest X-Ray 09/02/21 15:54 XR chest 1V portable CLINICAL HISTORY: hip fx TECHNIQUE: Single frontal radiograph of the chest was obtained. Comparison: Comparison is made to chest radiograph 06/19/2021 FINDINGS: No lines and tubes are seen. The cardiomediastinal silhouette is normal. The lungs are clear. No evidence of pleural effusion or pneumothorax. IMPRESSION: No acute chest disease. ACT 112: Negative or not required by law. Electronically signed by: Larry Lopez M.D. 09/02/2021 4:15 PM Discharge Plan Visit Data Chief Complaint: Hip Pain ED Provider: Boston Lindquist Discharge Problem: Closed hip fracture, Parkinson disease, Fall Patient Disposition: Admitted As Inpatient Condition: Fair Forms Stand Alone Forms: [facility], [facility], [facility] Visit Information Prescriptions Prescriptions: No Action amantadine HCl 100 mg tablet 100 mg PO TID RF: 0 carbidopa-levodopa [Sinemet] 25-100 mg tablet See Rx Instructions .ROUTE .COMPLEX Qty: 360 RF: 0 pramipexole 0.5 mg tablet 0.25 mg PO TID Qty: 90 RF: 0 docusate sodium [Colace] 100 mg Capsule 100 mg PO BID PRN (Reason: IF USING NARCOTICS) RF: 0 polyethylene glycol 3350 [Miralax] 17 gram/dose Powder 17 g PO DAILY PRN (Reason: IF USING NARCOTICS) RF: 0 Referrals Referrals: Dionte Rodriges DO [Primary Care Provider] -
[2021-09-02 15:28] LABS: Hematocrit (blood only) 45.9 % (40.1-51.0); Hemoglobin 15.5 g/dl (14.0-18.0); Mean Corpuscular Hgb Conc 33.8 g/dL (32.0-36.0); Mean Platelet Volume 9.9 fL (9.4-12.4); Platelet Count 229 K/uL (130-400); RDW Coefficient of Variation 14.2 % (11.5-14.5); RDW Standard Deviation 44.1 fL (36.4-46.3); Red Blood Count 5.34 M/uL (4.63-6.08); White Blood Count 6.14 K/ul (4.8-10.8)
[2021-09-02 15:41] LABS: BUN Creatinine Ratio 18.8 (10-20); Calcium 9.1 mg/dl (8.5-10.1); Creatinine Clr Calc Pharmacy 104.5 ml/min; Est GFR (African American) 93.8 ml/min; Est GFR (Non-African American) 80.9 ml/min; Potassium 3.9 mmol/L (3.5-5.1)
--- NOTE | 2021-09-02 15:43 | XRay Report ---
XR hip RT 2V w pelvis CLINICAL HISTORY: Status post fall with right hip pain. COMPARISON STUDY: 08/12/2018 TECHNIQUE: Pelvis and 2 right hip views FINDINGS: Bones: There is a nondisplaced fracture present through the base of the femoral neck with very minima l cortical offset seen medially. The remaining bones are intact. The patient is status post laminecto mies and internal fixation of the lumbar spine and SI joints. There is no lytic or blastic lesion. Joints: The joint spaces are maintained. The bones are in anatomic alignment. Soft tissues: There is no focal soft tissue abnormality. There is no radiopaque foreign body. IMPRESSION: 1. Nondisplaced fracture through the base of the right femoral neck. ACT 112: Negative or not required by law. Electronically signed by: Everett Joseph M.D. 09/02/2021 3:41 PM
--- NOTE | 2021-09-02 16:16 | XRay Report ---
XR chest 1V portable CLINICAL HISTORY: hip fx TECHNIQUE: Single frontal radiograph of the chest was obtained. Comparison: Comparison is made to chest radiograph 06/19/2021 FINDINGS: No lines and tubes are seen. The cardiomediastinal silhouette is normal. The lungs are clear. No evid ence of pleural effusion or pneumothorax. IMPRESSION: No acute chest disease. ACT 112: Negative or not required by law. Electronically signed by: Larry Lopez M.D. 09/02/2021 4:15 PM
[2021-09-02 16:39] LABS: Partial Thromboplastin Time 26.4 Seconds (21.0-31.0); Prothrombin Time 10.9 Seconds (9.0-12.0)
[2021-09-02] MEDS ORDERED: CARBIDOPA/LEVODOPA 25/100MG TAB ODT PO STA ×2 (16:46→17:23)
[2021-09-02] MEDS ORDERED: AMANTADINE HCL 100 MG CAPSULE PO STA (16:46)
[2021-09-02] MEDS ORDERED: PRAMIPEXOLE DIHYDROCHLO 0.25 MG TAB PO STA (16:46)
--- NOTE | 2021-09-02 16:55 | History & Physical Report ---
Date of Service September 02, 2021 Assessment & Plan (1) Hip fracture: Plan: Acute closed non-displaced fracture of right femoral neck. - Tiered pain control with Tylenol, oxy IR, Morphine IV - AVOID PHENERGAN and METOCLOPRAMIDE with his Parkinson's disease - Orthopaedic's consulted for surgical evaluation - assistance appreciated - PT/OT consultation - Lovenox 40mg SQ BID for VTE prophylaxis- following Orthopaedics evaluation/surgical plan - TEDs in place to left - SCDS - Increased bowel regime- follow - NPO after midnight (2) Parkinson disease: Plan: Follows at [facility] - Carbidopa/Levodopa 25/100- 3 tabs QID - Pramipexole 0.125 mg PO TID - Amantadine 100mg PO TID - As above (3) Status post lumbar surgery: Plan: 06/13 s/p L5S1 fusion in 06/13 and removal of old hardware with revision - doing well at home per and patient (4) Prostate cancer: Plan: Hx of completed resection and radiation therapy - place johnson as above - follow (5) Hypertension: Plan: Previously was on Olmesartan discontinued secondary to hypotension - ensure appropriate sized cuff used for accurate readings - noted increase in BP with previous surgeries- secondary to stress and pain likely - follow - PRN if needed History of Present Illness Primary Care Provider: Dionte Rodriges DO 70 YOM with medical history of: Obesity, Parkinson's disease, HTN, Prostate Cancer (s/p prostatectomy and 38 cycles of radiation therapy), constipation, bilateral knee replacements, L5-S1 fusion. Patient comes to the [facility] today following a fall. The patient states he got out of his truck to put a box in the recycle bin where he then lost his balance to the left side. He started to stumble and fall and tried to catch himself by putting his hands on the front of his truck. This slowed his upper body down and he fell directly on to his right hip on pavement. He said he had pain with that but wasn't intense but he noted that he could not move his right leg without assisting it with his hand. The local refuse guys were in the neighborhood and came to help him up. He was unable to put weight on his leg and noted that when he did it hurt more and would not support him. He was placed in a chair and then brought to the hospital. In the EMD the patient had routine labs performed, CXR, and Hip/pelvis plain films completed. He was given Morphine for pain. It was noted he had a right sided femoral neck fracture. He requested Dr. Ruby's orthopaedics group for his hip. Consultation has been placed for evaluation of surgical repair. He will be given tiered pain control, increase his bowel regimen with his parkinsonism, and NPO after midnight. Place Johnson for incontinence and ease of voiding without standing. For his Parkinson's disease, he follows with [facility]. He follows with them every 6 months. He seen a few months ago and no medication changes were made at that time and was to start an exercise program, which he was to start today. He denies any difficulty with breathing or having any chest pain or symptoms with activity. Does not use CPAP at night and is on no inhalers at home. Perioperative risk for perioperative TX or Cardiac arrest is 0.32%. Estimated risk of adverse outcome with non-cardiac surgery is Very Low risk with 0.4% estimated rate of TX, Pulmonary edema, v-fib, cardiac arrest. COVID test on admission is: Allergies Allergy/AdvReac Type Severity Reaction Status Date / Time No Known Allergies Allergy Verified 07/11/21 09:48 Home Medications Medication Instructions Recorded Confirmed Type amantadine HCl 100 mg tablet 100 mg PO TID tab 08/14/20 09/02/21 History pramipexole 0.5 mg tablet 0.25 mg PO TID #90 tab 05/30/21 09/02/21 Rx carbidopa 25 mg-levodopa 100 mg See Rx Instructions .ROUTE 07/23/21 09/02/21 Rx tablet (Sinemet) .COMPLEX #360 tab docusate sodium 100 mg capsule 100 mg PO BID PRN 09/02/21 09/02/21 History (Colace) polyethylene glycol 3350 17 17 g PO DAILY PRN 09/02/21 09/02/21 History gram/dose oral powder (Miralax) Past Med/Surg History Medical History Cervical disc disease Degenerative disc disease Hearing deficit WEARS 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 Hypertension Lumbar spinal stenosis Obesity Osteoarthritis Parkinson's disease Prostate cancer DX 04/2018. PATIENT HAD 39 TREATMENTS OF RADIATION AFTER THE PROSTATECTOMY. Radiculopathy BLLE RADICULOPATHY AND NUMBNESS. UNABLE TO STAND FOR EVEN SHORT PERIODS OF TIME. HAS TO CURRENTLY HELP HIM WITH MOST OF HIS ADL'S D/T BACK. Surgical History History of knee replacement B/L History of lumbar surgery 05/2020 Glidescope #4 grade 1 view S/P colonoscopy S/P prostatectomy 06/2018 Family History Grandmother (Maternal) , PASSED AT AGE 76 (OVARIAN CANCER) No problems noted. Grandfather (Paternal) , PASSED IN 60'S ("CHEST" CANCER) No problems noted. Mother No problems noted. Father , PASSED AGE 75 ([place]) No problems noted. Brother No problems noted. Brother No problems noted. Daughter No problems noted. Daughter No problems noted. 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 Other Information That Helps Us Care for You: No Feels Safe at Home: Yes Safety Concerns: Feels Safe At This Time caffeine: Yes (Occaisonally ) during the past year weight has: remained stable Assistive Devices: Walker Assistive Devices Comment: glasses at with patient, to bring in hearing aids Review of Systems Review of Systems: REVIEW OF SYSTEMS: Constitutional: No fever, sweats or chills Eyes: No diplopia, no worsening or blurred vision ENT: normal hearing, no trouble swallowing Respiratory: No cough, sputum, dyspnea at rest or on exertion Cardiovascular: No chest pain, tightness or palpitations Abdomen: No pain, nausea, vomiting, diarrhea or constipation Musculoskeletal: (+) right hip joint pain, no calf pain, swelling Neurologic: (+) weakness to right leg, NO numbness/tingling, or balance problems Psychiatric: No anxiety or depression Skin: No rash or itch Physical Exam Physical Exam: PHYSICAL EXAM: General: awake, alert, no apparent distress Head: Normocephalic, atraumatic ENT: PERRL, EOMI, no pharyngeal exudate, mucous membranes moist Neuro: AAO x 3, speech clear and appropriate, strength intact bilaterally 5/5, sensation intact and equal all extremities and dermatomes, no pronator drift, tremors with parkinson Chest: equal rise and fall of the chest, no accessory muscle use, no heaves or thrills, Clear to auscultation, on room air, Cardiac: Regular rate and rhythm, telemetry reviewed, skin warm dry, cap refill <3 seconds, peripheral pulses +2 no JVD, no murmur, no edema GI: NABS x 4 quadrants, soft, nontender to palpation, no rebound, guarding or tenderness : wears depends with hx of prostatectomy, place Johnson, no pain, no CVA tenderness, Extremities: Normal inspection, no peripheral edema or erythema, calfs nontender to palpation Psych: Normal mood and affect Skin: no rash or erythema Results & Data Results & Data ([facility]) Vital Signs (Past 12 Hours) Vital Signs Temp Pulse Pulse Resp BP BP Pulse Ox 09/02/21 14:49 36.9 C 84 17 129/107 H 98 09/02/21 14:23 36.9 C 84 17 129/107 H 98 Laboratory Results No abnormals Diagnostic Findings Hip/Pelvis X-Ray 09/02/21 15:02 XR hip RT 2V w pelvis CLINICAL HISTORY: Status post fall with right hip pain. COMPARISON STUDY: 08/12/2018 TECHNIQUE: Pelvis and 2 right hip views FINDINGS: Bones: There is a nondisplaced fracture present through the base of the femoral neck with very minimal cortical offset seen medially. The remaining bones are intact. The patient is status post laminectomies and internal fixation of the lumbar spine and SI joints. There is no lytic or blastic lesion. Joints: The joint spaces are maintained. The bones are in anatomic alignment. Soft tissues: There is no focal soft tissue abnormality. There is no radiopaque foreign body. IMPRESSION: 1. Nondisplaced fracture through the base of the right femoral neck. ACT 112: Negative or not required by law. Electronically signed by: Everett Joseph M.D. 09/02/2021 3:41 PM Chest X-Ray 09/02/21 15:54 XR chest 1V portable CLINICAL HISTORY: hip fx TECHNIQUE: Single frontal radiograph of the chest was obtained. Comparison: Comparison is made to chest radiograph 06/19/2021 FINDINGS: No lines and tubes are seen. The cardiomediastinal silhouette is normal. The lungs are clear. No evidence of pleural effusion or pneumothorax. IMPRESSION: No acute chest disease. ACT 112: Negative or not required by law. Electronically signed by: Larry Lopez M.D. 09/02/2021 4:15 PM Medications Administered Discontinued Medications Amantadine HCl (Amantadine Hcl 100 Mg Capsule) 100 mg PO NOW STA Stop: 09/02/21 16:47 Last Admin: 09/02/21 17:17 Dose: 100 mg Documented by: [id number] Carbidopa/Levodopa (Carbidopa/Levodopa 25/100mg Tab Odt) 1 tab PO NOW STA Stop: 09/02/21 16:47 Last Admin: 09/02/21 17:17 Dose: 1 tab Documented by: [id number] Morphine Sulfate (Morphine Sulfate 4 Mg/Ml 1 Ml Carp\\Vial) 4 mg IV NOW STA Stop: 09/02/21 15:03 Last Admin: 09/02/21 15:14 Dose: 4 mg Documented by: [id number] Ondansetron HCl (Ondansetron Inj 2 Mg/Ml 2 Ml Vial) 4 mg IV NOW STA Stop: 09/02/21 15:03 Last Admin: 09/02/21 15:14 Dose: 4 mg Documented by: [id number] Pramipexole Dihydrochloride (Pramipexole Dihydrochlo 0.25 Mg Tab) 0.25 mg PO NOW STA Stop: 09/02/21 16:47 Last Admin: 09/02/21 17:17 Dose: 0.25 mg Documented by: [id number] Discontinued Medications Amantadine HCl (Amantadine Hcl 100 Mg Capsule) 100 mg PO NOW STA Stop: 09/02/21 16:47 Last Admin: 09/02/21 17:17 Dose: 100 mg Documented by: [id number] Carbidopa/Levodopa (Carbidopa/Levodopa 25/100mg Tab Odt) 1 tab PO NOW STA Stop: 09/02/21 16:47 Last Admin: 09/02/21 17:17 Dose: 1 tab Documented by: [id number] Morphine Sulfate (Morphine Sulfate 4 Mg/Ml 1 Ml Carp\\Vial) 4 mg IV NOW STA Stop: 09/02/21 15:03 Last Admin: 09/02/21 15:14 Dose: 4 mg Documented by: [id number] Ondansetron HCl (Ondansetron Inj 2 Mg/Ml 2 Ml Vial) 4 mg IV NOW STA Stop: 09/02/21 15:03 Last Admin: 09/02/21 15:14 Dose: 4 mg Documented by: [id number] Pramipexole Dihydrochloride (Pramipexole Dihydrochlo 0.25 Mg Tab) 0.25 mg PO NOW STA Stop: 09/02/21 16:47 Last Admin: 09/02/21 17:17 Dose: 0.25 mg Documented by: [id number] ECG Additional Comments: Sinus rhythm with Premature atrial complexes in a pattern of bigeminy Left axis deviation Left ventricular hypertrophy with QRS widening Abnormal ECG When compared with ECG of 20-JUN-2019 14:00, Questionable change in QRS duration Code Status & VTE Plan Code Status CODE: FULL VTE: SCDS, Lovenox 40mg subq q12 VTE Prophylaxis Plan VTE Prophylaxis will be ordered: Yes Supervising Physician Co-Signing Physician Notes I personally saw and examined the patient. I verified all blanco points and agree with MALOU Adams with the following exceptions and/or additions: 70 year old male with Parkinson disease who presents to the ER following a fall where he lost his balance. Right leg pain following the fall and hip fracture confirmed in the ER. O/E HS1+2, no murmurs, Chest CTAB, Abdo SNT, bilateral resting tremor bilaterally, right groin pain on any hip movements A/P Closed right hip fracture - Pain medication as above, NPO after midnight. Medically optimized for surgery at this time. Consult orthopedics. Monitor for constipation post operatively. Parkinson's - continue his usual medications even on day of surgery. PG Care Time/CCT Total # of Minutes Spent Total Time Spent with Patient: Total time spent is greater than 50% in coordination of care (as documented) at patient's floor/unit and/or counseling patient: Coding Level of Care Code 60539 Initial Inpt Care Lvl 3 Diagnoses Hip fracture S72.009A Status post lumbar surgery Z98.890 Prostate cancer C61 Parkinson disease G20 Hypertension I10
--- NOTE | 2021-09-02 18:09 | Anesthesiology Consultation ---
Date of Service September 02, 2021 Assessment & Plan (1) Encounter for pre-operative examination: Chart Review Chart Review: Acceptable Risk for Surgery and Patient NOT seen in Pre Admission Testing Consults Requested none History Surgery Operation Date: 09/03/21 08:05 Proposed Procedures p Right Hip Hemiarthroplasty - Oscar Ruby MD Height/Weight Height: 6 ft 1 in Weight: 131 kg Allergies Allergy/AdvReac Type Severity Reaction Status Date / Time No Known Allergies Allergy Verified 07/11/21 09:48 Medications Home Medications Medication Instructions Recorded Confirmed Last Taken amantadine HCl 100 mg tablet 100 mg PO TID tab 08/14/20 09/02/21 09/02/21 12:00 pramipexole 0.5 mg tablet 0.25 mg PO TID #90 tab 05/30/21 09/02/21 09/02/21 12:00 carbidopa 25 mg-levodopa 100 mg See Rx Instructions .ROUTE 07/23/21 09/02/21 09/02/21 12:00 tablet (Sinemet) .COMPLEX #360 tab docusate sodium 100 mg capsule 100 mg PO BID PRN 09/02/21 09/02/21 Unknown (Colace) polyethylene glycol 3350 17 17 g PO DAILY PRN 09/02/21 09/02/21 Unknown gram/dose oral powder (Miralax) Past Medical History Medical History Cervical disc disease Degenerative disc disease Hearing deficit WEARS 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 Hypertension Lumbar spinal stenosis Obesity Osteoarthritis Parkinson's disease Prostate cancer DX 04/2018. PATIENT HAD 39 TREATMENTS OF RADIATION AFTER THE PROSTATECTOMY. Radiculopathy BLLE RADICULOPATHY AND NUMBNESS. UNABLE TO STAND FOR EVEN SHORT PERIODS OF TIME. HAS TO CURRENTLY HELP HIM WITH MOST OF HIS ADL'S D/T BACK. Past Family History Family History Grandmother (Maternal) , PASSED AT AGE 76 (OVARIAN CANCER) No problems noted. Grandfather (Paternal) , PASSED IN 60'S ("CHEST" CANCER) No problems noted. Mother No problems noted. Father , PASSED AGE 75 ([place]) No problems noted. Brother No problems noted. Brother No problems noted. Daughter No problems noted. Daughter No problems noted. Past Surgical History Surgical History History of knee replacement B/L History of lumbar surgery 05/2020 Glidescope #4 grade 1 view S/P colonoscopy S/P prostatectomy 06/2018 Social History Smoking Status: Never smoker tobacco type: smokeless tobacco Hx Alcohol Use: No Hx Substance Use: No substance use type: does not use Physical Exam Vital Signs Last Vital Signs Temp 36.9 C 09/02/21 14:49 Pulse 66 09/02/21 17:57 Resp 18 09/02/21 17:57 BP 167/93 H 09/02/21 17:57 Pulse Ox 96 09/02/21 17:57 Testing Laboratory Results 09/02/21 15:09 09/02/21 15:09 PT 10.9 Seconds (9.0-12.0) 09/02/21 15:54 INR 1.0 (0.9-1.1) 09/02/21 15:54 APTT 26.4 Seconds (21.0-31.0) 09/02/21 15:54 Electrocardiogram Date: 09/02/21 SR with PACs, bigeminy, rate 73, left axis deviation, LVH Chest X-Ray Date: 09/02/21 [place], [place] [phone] XRay Report Patient:ARELI EDWARDS Admit Date:09/02/21 MR#:[id number] Address1:[address] [place] [address] Acct ID:[id number] Address2: Date:1950 [facility] Zip:[place] [address] Age:70 Location:ED Sex:M Room/Bed: Att Phy: Diagnosis:HIP PAIN Tiffanie Phy:Dionte Rodriges DO Service Date:09/02/21 [facility] Phy: Interpreting Phy:Larry Lopez MDAdmit Phy: Ordering Phy:Boston Lindquist M.D. cc: ~ XR chest 1V portable CLINICAL HISTORY: hip fx TECHNIQUE: Single frontal radiograph of the chest was obtained. Comparison: Comparison is made to chest radiograph 06/19/2021 FINDINGS: No lines and tubes are seen. The cardiomediastinal silhouette is normal. The lungs are clear. No evidence of pleural effusion or pneumothorax. IMPRESSION: No acute chest disease. ACT 112: Negative or not required by law. Electronically signed by: Larry Lopez M.D. 09/02/2021 4:15 PM Dictated:09/02/21 1615 Transcribed: 09/02/21 1615
[2021-09-02] MEDS ORDERED: oxyCODONE HCL IR 5 MG TAB (IMMEDIATE RELEASE) PO PRN (19:18)
[2021-09-02] MEDS ORDERED: MAGNESIUM HYDROXIDE SUSP 30 ML UDC PO PRN (19:18)
[2021-09-02] MEDS ORDERED: bisacodyL 10 MG SUPP PR PRN (19:18)
[2021-09-02] MEDS ORDERED: DOCUSATE SODIUM 100 MG CAP PO PRN (19:18)
[2021-09-02] MEDS ORDERED: POLYETHYLENE (MIRALAX) 17 GM PACK PO PRN (19:18)
[2021-09-02] MEDS ORDERED: NALOXONE HCL 0.4 MG/1 ML VIAL/CARP IV PRN (19:18)
[2021-09-02] MEDS: MoRPHine SULFATE 4 MG/ML 1 ML CARP\\VIAL IV PRN (19:33)
[2021-09-02] MEDS ORDERED: Nursing to Pharmacy Communication SCH (20:00)
[2021-09-02] MEDS ORDERED: ENOXAPARIN INJ 40 MG/0.4 ML SYR SQ SCH (21:00)
[2021-09-02] MEDS ORDERED: PRAMIPEXOLE DIHYDROCHLO 0.25 MG TAB PO SCH (21:00)
[2021-09-02] MEDS: DOCUSATE SODIUM/SENNA 50/8.6MG TAB PO SCH (21:56)
[2021-09-02] MEDS: CARBIDOPA/LEVODOPA 25/100MG TAB PO SCH (21:57)
[2021-09-03 05:33] LABS: Basophils # (auto) 0.03 K/uL (0-0.2); Basophils % (auto) 0.4 %; Eosinophils # (auto) 0.15 K/uL (0-0.50); Hematocrit (blood only) 46.7 % (40.1-51.0); Hemoglobin 15.6 g/dl (14.0-18.0); Immature Granulocytes # (auto) 0.01 K/uL (0.00-0.02); Immature Granulocytes % (auto) 0.1 %; Lymphocytes % (auto) 6.8 %; Mean Corpuscular Hemoglobin 28.9 pg (25.0-34.0); Mean Corpuscular Hgb Conc 33.4 g/dL (32.0-36.0); Mean Corpuscular Volume 86.5 fL (80.0-100.0); Mean Platelet Volume 10.1 fL (9.4-12.4); Monocytes % (auto) 8.1 %; Neutrophils % (auto) 82.6 %; Platelet Count 212 K/uL (130-400); RDW Coefficient of Variation 14.2 % (11.5-14.5); RDW Standard Deviation 44.7 fL (36.4-46.3); White Blood Count 7.39 K/ul (4.8-10.8)
[2021-09-03 06:08] LABS: BUN Creatinine Ratio 17.4 (10-20); Calcium 8.9 mg/dl (8.5-10.1); Creatinine Clr Calc Pharmacy 108.5 ml/min; Est GFR (African American) 98.7 ml/min; Est GFR (Non-African American) 85.2 ml/min; Magnesium 2.1 mg/dl (1.7-2.4)
[2021-09-03] MEDS: CARBIDOPA/LEVODOPA 25/100MG TAB PO SCH ×4 (07:52→21:49)
[2021-09-03] MEDS: PRAMIPEXOLE DIHYDROCHLO 0.25 MG TAB PO SCH ×3 (07:53→18:45)
[2021-09-03] MEDS: AMANTADINE HCL 100 MG CAPSULE PO SCH ×3 (07:54→18:47)
--- NOTE | 2021-09-03 09:10 | Orthopedic Consultation ---
Date of Service September 03, 2021 Assessment & Plan (1) Closed hip fracture: He was educated on this fracture and treatment options. We recommend right hip bipolar hemiarthroplasty. Procedure was explained including risks, alternatives, and benefits to surgery. Consent obtained. He wants to proceed with surgery today. He was seen and examined by Dr. Ruby today as well. NPO. History of Present Illness Reason for Consultation: . Requesting Physician: . Attending Physician: Fanta Child MD .70 year old patient, h/o parkinsons disease, injured his right hip yesterday. He put a cardboard box in the recycling and was walking back to his truck when he began to stumble due to parkinson's disease and fell onto his right hip. Xrays obtained in the ER show a femoral neck fracture. Denies any hip pain prior to the fall. No other complaints. Allergies Allergy/AdvReac Type Severity Reaction Status Date / Time No Known Allergies Allergy Verified 07/11/21 09:48 Home Medications Medication Instructions Recorded Confirmed Type amantadine HCl 100 mg tablet 100 mg PO TID tab 08/14/20 09/02/21 History pramipexole 0.5 mg tablet 0.25 mg PO TID #90 tab 05/30/21 09/02/21 Rx carbidopa 25 mg-levodopa 100 mg See Rx Instructions .ROUTE 07/23/21 09/02/21 Rx tablet (Sinemet) .COMPLEX #360 tab docusate sodium 100 mg capsule 100 mg PO BID PRN 09/02/21 09/02/21 History (Colace) polyethylene glycol 3350 17 17 g PO DAILY PRN 09/02/21 09/02/21 History gram/dose oral powder (Miralax) Past Med/Surg History Medical History Cervical disc disease Degenerative disc disease Hearing deficit WEARS 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 Hypertension Lumbar spinal stenosis Obesity Osteoarthritis Parkinson's disease Prostate cancer DX 04/2018. PATIENT HAD 39 TREATMENTS OF RADIATION AFTER THE PROSTATECTOMY. Radiculopathy BLLE RADICULOPATHY AND NUMBNESS. UNABLE TO STAND FOR EVEN SHORT PERIODS OF TIME. HAS TO CURRENTLY HELP HIM WITH MOST OF HIS ADL'S D/T BACK. Surgical History History of knee replacement B/L History of lumbar surgery 05/2020 Glidescope #4 grade 1 view S/P colonoscopy S/P prostatectomy 06/2018 Family History Grandmother (Maternal) , PASSED AT AGE 76 (OVARIAN CANCER) No problems noted. Grandfather (Paternal) , PASSED IN 60'S ("CHEST" CANCER) No problems noted. Mother No problems noted. Father , PASSED AGE 75 ([place]) No problems noted. Brother No problems noted. Brother No problems noted. Daughter No problems noted. Daughter No problems noted. 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 Physical Exam . alert and oriented. NAD Right leg: externally rotated. Scar on his knee from previous knee surgery. Able to dorsiflex and plantarflex. NVI. Skin intact around hip. Results & Data Results & Data Laboratory Results . Diagnostic Findings . xrays show a right femoral neck fracture PG Care Time/CCT Total # of Minutes Spent Total Time Spent with Patient: Total time spent is greater than 50% in coordination of care (as documented) at patient's floor/unit and/or counseling patient: Coding Level of Care Code 56983 Inpt Consult Level 4 Diagnoses Closed hip fracture S72.001A Encounter type: initial encounter Laterality: right (1) Closed hip fracture Encounter type: initial encounter Laterality: right Qualified Code(s): S72.001A - Fracture of unspecified part of neck of right femur, initial encounter for closed fracture
--- NOTE | 2021-09-03 11:41 | Hospitalist Progress Note ---
Date of Service September 03, 2021 Assessment & Plan (1) Hip fracture: Plan: Acute closed non-displaced fracture of right femoral neck. - Tiered pain control with Tylenol, oxy IR, Morphine IV - AVOID PHENERGAN and METOCLOPRAMIDE with his Parkinson's disease - Orthopaedic's consulted for surgical evaluation - assistance appreciated-plan for - PT/OT consultation post-op, will need rehab given underlying PD and balance issues from previous lower back surgery - Increased bowel regimen- added senna/docusate - NPO while awaiting surgery-start maintenance IVFs with LR at 80 mL/hr -follow CBC, BMP in AM (2) Parkinson disease: Plan: Follows at [facility] stable - Carbidopa/Levodopa 25/100- 3 tabs QID - Pramipexole 0.125 mg PO TID - Amantadine 100mg PO TID (3) Status post lumbar surgery: Plan: 06/13 s/p L5S1 fusion in 06/13 and removal of old hardware with revision - doing well at home per and patient except has balance issues since repeat surgery PT/OT consults post-op (4) Prostate cancer: Plan: Hx of completed resection and radiation therapy - place johnson and dc post-op (5) Hypertension: Plan: Previously was on Olmesartan discontinued secondary to hypotension - ensure appropriate sized cuff used for accurate readings - noted increase in BP with previous surgeries- secondary to stress and pain likely - follow - PRN if needed Plan: DVT porph-Lovenox SQ dcd by Ortho, continue SCDs, Ashley Padilla to determine post-op med for DVT prophylaxis Dispo-continued stay, will need rehab placement, first choice [facility] Admission and Anticipated Discharge Date Admission Date: September 02, 2021 Subjective Pt feeling well. No pain currently but did have a lot of pain in the right hip with transfer to the bed last evening. No CP, SOB, nausea, abd pain. Not hurting anywhere else. Did not hit head in fall. Review of Systems Review of Systems: All systems reviewed & are unremarkable except as noted in HPI & below Physical Exam Constitutional: WD/WN, vitals as above Eyes: + anicteric sclerae ENMT: external ear and nose normal, oropharynx normal Neck: trachea midline, no thyromegaly Respiratory: normal respiratory effort, lungs clear to auscultation Cardiovascular: RRR, no murmur, no edema Chest (Breasts): Chest: normal inspection of chest Gastrointestinal (Abdomen): normal bowel sounds, soft, nontender, no hepatosplenomegaly Musculoskeletal: Extremities: + extremities abnormal to inspection (right hip ext rotated and leg shortened), no cyanosis and no clubbing Skin: no rashes, warm and dry Neurologic: moves all extremities and awake; no focal motor deficits Motor/Sensory: + tremor (bilat hand tremors) Psychiatric: A+Ox3, euthymic affect Lymphatic: no lymphedema Results & Data Results & Data ([facility]) Vital Signs (Past 12 Hours) Vital Signs Temp Pulse Resp BP Pulse Ox Pulse Ox 09/03/21 07:32 36.8 C 73 20 163/97 H 94 09/03/21 05:02 36.7 C 87 18 154/87 H 92 09/03/21 03:00 97 09/03/21 00:45 83 136/77 Laboratory Results 09/03/21 09/03/21 09/02/21 Range/Units 04:55 04:55 23:00 WBC 7.39 (4.8-10.8) K/ul RBC 5.40 (4.63-6.08) M/uL Hgb 15.6 (14.0-18.0) g/dl Hct 46.7 (40.1-51.0) % MCV 86.5 (80.0-100.0) fL MCH 28.9 (25.0-34.0) pg MCHC 33.4 (32.0-36.0) g/dL RDW Std Deviation 44.7 (36.4-46.3) fL RDW Coeff of Ashu 14.2 (11.5-14.5) % Plt Count 212 (130-400) K/uL MPV 10.1 (9.4-12.4) fL Immature Gran % (Auto) 0.1 % Neut % (Auto) 82.6 % Lymph % (Auto) 6.8 % [place] % (Auto) 8.1 % Eos % (Auto) 2.0 % Baso % (Auto) 0.4 % Neut # (Auto) 6.10 (1.4-6.5) K/uL Lymph # (Auto) 0.50 L (1.2-3.4) K/uL [place] # (Auto) 0.60 (0.24-0.82) K/uL Eos # (Auto) 0.15 (0-0.50) K/uL Baso # (Auto) 0.03 (0-0.2) K/uL Immature Gran # (Auto) 0.01 (0.00-0.02) K/uL PT (9.0-12.0) Seconds INR (0.9-1.1) APTT (21.0-31.0) Seconds PTT Ratio Sodium 136 (136-145) mmol/L Potassium 4.0 (3.5-5.1) mmol/L Chloride 104 (98-107) mmol/L Carbon Dioxide 27 (21-32) mmol/L Anion Gap 5 (3-11) BUN 16 (6-23) mg/dl Creatinine 0.92 (0.6-1.4) mg/dl Est Cr Clr Drug Dosing 108.5 ml/min Est GFR ( Amer) 98.7 ml/min Est GFR (Non-Af Amer) 85.2 ml/min BUN/Creatinine Ratio 17.4 (10-20) Glucose 95 (70-99(Fasting)) mg/dl POC Glucose (70-99) mg/dl Calcium 8.9 (8.5-10.1) mg/dl Magnesium 2.1 (1.7-2.4) mg/dl Nasal Screen MRSA (PCR) Negative (Negative) SARS-CoV-2, RNA, NAAT (NEGATIVE) Blood Type Antibody Screen 09/02/21 09/02/21 09/02/21 Range/Units 20:49 20:02 17:05 WBC (4.8-10.8) K/ul RBC (4.63-6.08) M/uL Hgb (14.0-18.0) g/dl Hct (40.1-51.0) % MCV (80.0-100.0) fL MCH (25.0-34.0) pg MCHC (32.0-36.0) g/dL RDW Std Deviation (36.4-46.3) fL RDW Coeff of Ashu (11.5-14.5) % Plt Count (130-400) K/uL MPV (9.4-12.4) fL Immature Gran % (Auto) % Neut % (Auto) % Lymph % (Auto) % [place] % (Auto) % Eos % (Auto) % Baso % (Auto) % Neut # (Auto) (1.4-6.5) K/uL Lymph # (Auto) (1.2-3.4) K/uL [place] # (Auto) (0.24-0.82) K/uL Eos # (Auto) (0-0.50) K/uL Baso # (Auto) (0-0.2) K/uL Immature Gran # (Auto) (0.00-0.02) K/uL PT (9.0-12.0) Seconds INR (0.9-1.1) APTT (21.0-31.0) Seconds PTT Ratio Sodium (136-145) mmol/L Potassium (3.5-5.1) mmol/L Chloride (98-107) mmol/L Carbon Dioxide (21-32) mmol/L Anion Gap (3-11) BUN (6-23) mg/dl Creatinine (0.6-1.4) mg/dl Est Cr Clr Drug Dosing ml/min Est GFR ( Amer) ml/min Est GFR (Non-Af Amer) ml/min BUN/Creatinine Ratio (10-20) Glucose (70-99(Fasting)) mg/dl POC Glucose 83 (70-99) mg/dl Calcium (8.5-10.1) mg/dl Magnesium (1.7-2.4) mg/dl Nasal Screen MRSA (PCR) (Negative) SARS-CoV-2, RNA, NAAT NEGATIVE (NEGATIVE) Blood Type A Negative Antibody Screen NEGATIVE 09/02/21 09/02/21 09/02/21 Range/Units 15:54 15:09 15:09 WBC 6.14 (4.8-10.8) K/ul RBC 5.34 (4.63-6.08) M/uL Hgb 15.5 (14.0-18.0) g/dl Hct 45.9 (40.1-51.0) % MCV 86.0 (80.0-100.0) fL MCH 29.0 (25.0-34.0) pg MCHC 33.8 (32.0-36.0) g/dL RDW Std Deviation 44.1 (36.4-46.3) fL RDW Coeff of Ashu 14.2 (11.5-14.5) % Plt Count 229 (130-400) K/uL MPV 9.9 (9.4-12.4) fL Immature Gran % (Auto) % Neut % (Auto) % Lymph % (Auto) % [place] % (Auto) % Eos % (Auto) % Baso % (Auto) % Neut # (Auto) (1.4-6.5) K/uL Lymph # (Auto) (1.2-3.4) K/uL [place] # (Auto) (0.24-0.82) K/uL Eos # (Auto) (0-0.50) K/uL Baso # (Auto) (0-0.2) K/uL Immature Gran # (Auto) (0.00-0.02) K/uL PT 10.9 (9.0-12.0) Seconds INR 1.0 (0.9-1.1) APTT 26.4 (21.0-31.0) Seconds PTT Ratio 1.0 Sodium 138 (136-145) mmol/L Potassium 3.9 (3.5-5.1) mmol/L Chloride 106 (98-107) mmol/L Carbon Dioxide 27 (21-32) mmol/L Anion Gap 5 (3-11) BUN 18 (6-23) mg/dl Creatinine 0.96 (0.6-1.4) mg/dl Est Cr Clr Drug Dosing 104.5 ml/min Est GFR ( Amer) 93.8 ml/min Est GFR (Non-Af Amer) 80.9 ml/min BUN/Creatinine Ratio 18.8 (10-20) Glucose 95 (70-99(Fasting)) mg/dl POC Glucose (70-99) mg/dl Calcium 9.1 (8.5-10.1) mg/dl Magnesium (1.7-2.4) mg/dl Nasal Screen MRSA (PCR) (Negative) SARS-CoV-2, RNA, NAAT (NEGATIVE) Blood Type Antibody Screen PG Care Time/CCT Total # of Minutes Spent Total Time Spent with Patient: Total time spent is greater than 50% in coordination of care (as documented) at patient's floor/unit and/or counseling patient: Coding Level of Care Code 14402 Subseq Hosp Care Lvl 2 Diagnoses Hip fracture S72.009A Parkinson disease G20 Status post lumbar surgery Z98.890 Prostate cancer C61 Hypertension I10
[2021-09-03] MEDS ORDERED: LACTATED RINGER'S 1,000 ML IV SCH (11:45)
[2021-09-03] MEDS: MoRPHine SULFATE 4 MG/ML 1 ML CARP\\VIAL IV PRN (11:46)
--- NOTE | 2021-09-03 12:02 | Electrocardiogram Report ---
Test Reason : Blood Pressure : / mmHG Vent. Rate : 073 BPM Atrial Rate : 073 BPM P-R Int : 182 ms QRS Dur : 124 ms QT Int : 394 ms P-R-T Axes : 007 -40 -08 degrees QTc Int : 434 ms Poor data quality, interpretation may be adversely affected Sinus rhythm with Premature atrial complexes in a pattern of bigeminy Left axis deviation Poor R wave progression, consider anterior IN vs. lead placement vs. LVH Abnormal ECG When compared with ECG of 20-JUN-2019 14:00, Questionable change in QRS duration Confirmed by Viktor Farfan ([id number]) on 09/03/2021 12:02:24 PM Referred By: REFERRED SELF Confirmed By:Pepito Farfan
[2021-09-03] MEDS ORDERED: PROPOFOL IV EMULSION 10 MG/ML 100 ML VIAL IV ONE (12:37)
[2021-09-03] MEDS ORDERED: ROCURONIUM BROMIDE 10 MG/ML 5 ML VIAL IV ONE (12:37)
[2021-09-03] MEDS ORDERED: LIDOCAINE 2% 2 ML VIAL/AMP(20MG/ML) INFIL ONE (12:37)
[2021-09-03] MEDS ORDERED: ceFAZolin 2,000 MG/15 ML IV PUSH IV ONE (14:20)
[2021-09-03] MEDS ORDERED: fentaNYL citrate 100 MCG/2 ML VIAL IV PRN (14:23)
[2021-09-03] MEDS ORDERED: ATROPINE SULFATE 0.1 MG/ML 10ML SYR IV PRN (14:23)
[2021-09-03] MEDS ORDERED: ePHEDrine sulfate 50 MG/ML AMP IV PRN (14:23)
[2021-09-03] MEDS ORDERED: ONDANSETRON INJ 2 MG/ML 2 ML VIAL IV PRN (14:23)
[2021-09-03] MEDS ORDERED: HYDROmorphone INJ 1 MG/ML SYRINGE IV PRN (14:23)
[2021-09-03] MEDS ORDERED: fentaNYL citrate 100 MCG/2 ML VIAL ONE (14:28)
[2021-09-03] MEDS ORDERED: MIDAZOLAM HCL 1 MG/ML 2ML VIAL ONE (14:29)
[2021-09-03] MEDS ORDERED: BUPIVACAINE 0.5 % 5 MG/1 ML MPF 30ML VIAL ONE (14:37)
[2021-09-03] MEDS ORDERED: EPINEPHrine INJ 1 MG/ML AMP ONE (14:37)
[2021-09-03] MEDS ORDERED: ceFAZolin 330 MG/ML 1 GM VIAL ONE (15:08)
[2021-09-03] MEDS ORDERED: HYDROmorphone INJ 2 MG/ML SYR/VIAL ONE (15:35)
[2021-09-03] MEDS ORDERED: PROPOFOL IV EMULSION 10 MG/ML 20 ML VIAL IV ONE (15:35)
[2021-09-03] MEDS ORDERED: NEOSTIGMINE METHYLSULFATE 1 MG/ML 10ML VIAL ONE (15:36)
[2021-09-03] MEDS ORDERED: PHENYLEPHRINE 100MCG/ML 5ML SYR ONE (15:36)
[2021-09-03] MEDS ORDERED: GLYCOPYRROLATE 0.2 MG/ML VIAL ONE (15:36)
[2021-09-03] MEDS ORDERED: ONDANSETRON INJ 2 MG/ML 2 ML VIAL ONE (15:36)
[2021-09-03] MEDS ORDERED: ceFAZolin 1000MG 1,000 MG/7.5 ML SYR IV ONE (15:41)
--- NOTE | 2021-09-03 17:01 | Operative Report ---
PG Post Operative Report Pre & Post Diagnosis Operation Date: 09/03/21 08:05 Pre-Op Diagnosis: Right displaced femoral neck fracture Post-Op Diagnosis: Right displaced femoral neck fracture I identified the patient and participated in the time-out.: Yes Procedure Operation Date: 09/03/21 08:05 Actual Procedures p Right Hip Hemiarthroplasty- cemented(Right) - Oscar Ruby MD Surgeon Oscar Ruby MD Hoop Driving Machine Operator Kirill Borden PA-C Estimated Blood Loss 200 Findings Consistent with Post-Op Diagnosis Fluids 2000 cc Specimens Right femoral head sent for pathology Anesthesia Type General Complications none Disposition Accompanied Patient To Recovery: No Indications Patient is a 70-year-old gentleman with multiple medical comorbidities including pretty significant Parkinson's disease who fell yesterday and sustained a displaced femoral neck fracture. He was brought to emergency room where x-rays revealed a fracture. He was admitted by the medicine service, medically op timized and indicated for surgical treatment. Considering his history of Parkinson's disease as well as extensive back fusion I elected to proceed with cemented bipolar hip arthroplasty in order to maximize his stability postoperatively. Description of Procedure Operative implants consist of: 1. DePuy [place] size 5 high offset femoral stem with a 12 mm centralizer. 2. +5/28 mm metal articular ball with a 57 mm bipolar shell and liner. 3. Large cement restrictor. The patient was taken the operating, identified, placed on the operating table supine position protectors were properly padded. IV antibiotics tried by anesthesia team. A general anesthetic was implemented due to his extensive spine surgery. The patient was then placed in the left lateral cubitus position. Axillary roll was placed. A Stulberg hip positioner was used for positioning. The right hip was then scrubbed with Hibiclens prepped with ChloraPrep and draped in usual sterile fashion. A posterior lateral puncture of the right hip was then performed to a curvilinear incision centered over the greater trochanter. Sharp dissection was carried through subcutaneous tissue down below the IT band gluteal fascia the IT band gluteal fascia were incised longitudinally in line with skin incision. The underlying greater bursa was excised. The piriformis and external rotators were tagged and taken off the posterior aspect of the hip joint capsule. Great care was taken throughout the procedure protect the sciatic nerve at all times. The posterior capsule was then incised in a T-type fashion to allow for later repair. Hip was internally rotated. Femoral neck osteotomy cut was made just at the base of the fracture. Was a fairly vertical fracture. The remaining femoral neck and femoral head were removed and sent for pathology. The acetabular was sized to a size 58. However, with his bipolar system had this like either 57 or 59 and I elected to use a 57 does not seem to fit in most appropriately. The 59 did not quite sit down the whole way down in the acetabulum. Attention drawn the femur. The proximal femur was entered with a cookie cutter followed by canal finder and lateralizing reamer. I then broached beginning with size 1 and progressing up to 5 to we got pretty good fit with a 5. We then trialed the hip and the +5 articular ball provide full stability and full extension and external rotation flexion to 90 degrees internal rotation over 50 degrees. Leg length seemed appropriate and soft tissue tension was appropriate. We used a high offset stem in order to maximize his stability and soft tissue tension. Attention was then drawn toward placing the permanent implants. Nupathe all trial implants were removed. A large cement restrictor was placed. A double batch [place] G cement was mixed and injected in the canal. A size 5 [place] high offset femoral stem was placed. It was held until the cement hardened. A +5/28 mm articular ball and a 47 mm bipolar shell and liner were placed. Hip was located once again found to be stable. Attention drawn toward closing. Wound was irrigated scope soft pulsatile lavage solution. I did inject locally with 60 cc of absent Marcaine with epinephrine. The posterior capsule was then repaired with #2 Tycron suture in a [id number] fashion. The external rotators were repaired to the posterior aspect of the hip abductors with #2 Tycron suture. The IT band gluteal fascia then closed in 1 PDS suture running fashion for subcutaneous tissues then closed with 2 layers the deep layer #1 Vicryl suture subcutaneous tissues with 2 Dexon suture in buried interrupted fashion. Skin was closed skin alex. Leg was then cleaned and dried and sterile dressed with Xeroform, 4 x 4's, sterile ABD pad, foam tape was applied. Patient then brought out of general anesthesia and transferred to the recovery room in stable condition. The patient tolerated procedure well and there were no complications. Kirill Borden, my physician business support assistant, was present for the entire procedure. His assistance was essential and required for appropriate patient positioning, prepping and draping, surgical exposure, performing the technical details of the operation, placement the implants, closure of the wound, and placement of the sterile bandage. I attest to the content of the Intraoperative Record and any orders documented therein. Any exceptions are noted below.
--- NOTE | 2021-09-03 17:45 | Anesthesiology Progress Note ---
Date of Service September 03, 2021 Anesthesia Post Procedure Vital Signs Vital Signs: Temp Pulse Pulse Pulse Resp BP Pulse Ox 09/03/21 17:20 91 H 20 165/89 H 98 09/03/21 17:10 88 16 158/87 H 96 09/03/21 17:00 80 22 118/94 94 09/03/21 16:54 36.3 C L 64 15 140/72 97 09/03/21 13:54 36.6 C 72 20 101/84 93 09/03/21 07:32 36.8 C 73 20 163/97 H 94 09/03/21 05:02 36.7 C 87 18 154/87 H 92 09/03/21 03:00 09/03/21 00:45 83 136/77 09/02/21 22:10 36.5 C 62 18 169/108 H 92 09/02/21 19:18 36.2 C L 62 18 149/88 H 95 09/02/21 19:15 36.2 C L 62 18 149/88 H 95 09/02/21 17:57 66 18 167/93 H 96 Pulse Ox 09/03/21 17:20 09/03/21 17:10 09/03/21 17:00 09/03/21 16:54 09/03/21 13:54 09/03/21 07:32 09/03/21 05:02 09/03/21 03:00 97 09/03/21 00:45 09/02/21 22:10 09/02/21 19:18 95 09/02/21 19:15 09/02/21 17:57 Pain Intensity Right Hip: Pain Intensity: 10 Transfer of Care Handoff Completed per policy Notes Mental Status: alert / awake / arousable and participated in evaluation Patient Amnestic to Procedure: Yes Nausea / Vomiting: adequately controlled Pain: adequately controlled Airway Patency, RR, SpO2: stable & adequate BP & HR: stable & adequate Hydration State: stable & adequate Anesthetic Complications: no major complications apparent
--- NOTE | 2021-09-03 17:50 | XRay Report ---
XR hip RT min 2V CLINICAL HISTORY: Post-Operative implant position. Status post total hip replacement COMPARISON STUDY: No previous studies for comparison. TECHNIQUE: 2 right hip views FINDINGS: Bones: There is no evidence for an acute fracture or dislocation. There is no lytic or blastic lesion . Joints: The patient is status post total hip replacement with evidence for bipolar prosthesis. The pr osthetic components are in anatomic alignment. The bones are in anatomic alignment. Soft tissues: There is no focal soft tissue abnormality. There is no radiopaque foreign body. IMPRESSION: 1. No acute osseous pathology. 2. Status post right hip replacement. ACT 112: Negative or not required by law. Electronically signed by: Everett Joseph M.D. 09/03/2021 5:49 PM
[2021-09-03] MEDS: SODIUM CHLORIDE 0.9% 1000ML 1,000 ML IV SCH (18:48)
[2021-09-03] MEDS: ASPIRIN 81 MG ECTAB PO SCH (21:49)
[2021-09-03] MEDS: DOCUSATE SODIUM/SENNA 50/8.6MG TAB PO SCH (21:49)
[2021-09-04 06:20] LABS: Basophils # (auto) 0.03 K/uL (0-0.2); Basophils % (auto) 0.3 %; Eosinophils # (auto) 0.04 K/uL (0-0.50); Eosinophils % (auto) 0.4 %; Hematocrit (blood only) 43.4 % (40.1-51.0); Hemoglobin 14.5 g/dl (14.0-18.0); Immature Granulocytes # (auto) 0.04 K/uL (0.00-0.02); Immature Granulocytes % (auto) 0.4 %; Lymphocytes # (auto) 0.42 K/uL (1.2-3.4); Lymphocytes % (auto) 4.1 %; Mean Corpuscular Hgb Conc 33.4 g/dL (32.0-36.0); Mean Corpuscular Volume 86.8 fL (80.0-100.0); Mean Platelet Volume 10.2 fL (9.4-12.4); Monocytes # (auto) 0.73 K/uL (0.24-0.82); Monocytes % (auto) 7.1 %; Neutrophils # (auto) 9.06 K/uL (1.4-6.5); Neutrophils % (auto) 87.7 %; Platelet Count 174 K/uL (130-400); RDW Coefficient of Variation 14.2 % (11.5-14.5); RDW Standard Deviation 45.2 fL (36.4-46.3); White Blood Count 10.32 K/ul (4.8-10.8)
[2021-09-04] MEDS: SODIUM CHLORIDE 0.9% 1000ML 1,000 ML IV SCH (06:32)
[2021-09-04 06:43] LABS: BUN Creatinine Ratio 17.4 (10-20); Calcium 8.3 mg/dl (8.5-10.1); Creatinine Clr Calc Pharmacy 108.5 ml/min; Est GFR (African American) 98.7 ml/min; Est GFR (Non-African American) 85.2 ml/min; Magnesium 1.9 mg/dl (1.7-2.4); Potassium 4.1 mmol/L (3.5-5.1)
[2021-09-04 07:24] VITALS: O2SAT 93
[2021-09-04] MEDS: ASPIRIN 81 MG ECTAB PO SCH ×2 (08:01→21:36)
[2021-09-04] MEDS: CARBIDOPA/LEVODOPA 25/100MG TAB PO SCH ×4 (08:01→21:36)
[2021-09-04] MEDS: AMANTADINE HCL 100 MG CAPSULE PO SCH ×3 (08:02→17:06)
[2021-09-04] MEDS: PRAMIPEXOLE DIHYDROCHLO 0.25 MG TAB PO SCH ×3 (08:02→17:05)
[2021-09-04] MEDS: ACETAMINOPHEN 325 MG TAB PO PRN ×2 (11:14→17:19)
[2021-09-04] MEDS: CHOLECALCIFEROL 1,000 UNITS 25 MCG TAB PO SCH (11:15)
[2021-09-04] MEDS: POLYETHYLENE (MIRALAX) 17 GM PACK PO SCH ×2 (12:45→17:04)
--- NOTE | 2021-09-04 13:08 | Progress Notes ---
DATE OF SERVICE: 09/04/2021. SUBJECTIVE: A 70-year-old gentleman with a pretty severe Parkinson's disease, now postoperative day 1 from a right cemented bipolar hip arthroplasty for fracture. He is doing pretty well. Really not having much pain. Has not been out of bed yet really. No chest pain or shortness of breath. Not fe eling dizzy or lightheaded. OBJECTIVE: VITAL SIGNS: Temperature is 36.4. Vital signs are stable. PHYSICAL EXAMINATION: GENERAL: Shows a pleasant, elderly male. He is sitting up in bed and looks pretty comfortable. EXTREMITIES: Examination of the right hip reveals leg lengths are equal. Dressing is clean, dry and intact. Thigh is soft and supple. He can dorsiflex and plantarflex his foot appropriately. LABORATORY DATA: Hemoglobin 14.5. Hematocrit 43.4. Electrolytes are stable. ASSESSMENT: A 70-year-old gentleman with a pretty severe Parkinson's disease, postoperative day 1 fr om a right cemented bipolar hip arthroplasty for fracture. Orthopedically, he is doing well. PLAN: 1. DVT prophylaxis includes thigh-high TEDs, SCDs and we would recommend a baby aspirin twice a day for 6 weeks. 2. PT/OT. He can weight bear as tolerated. Does need to obey hip precautions for the next 6 weeks. 3. Pain control, doing okay with current pain regimen. 4. Medical management as per the medicine service. 5. Disposition: He is orthopedically okay for discharge any time medically stable. He likely would benefit from a rehab stay despite him not really desiring this. I would recommend we see how therap y goes and if he does okay, he could potentially go home, but most likely a rehab stay. I need to se e him back in 2-3 weeks from his surgery date. Any orthopedic questions can be directed to me at . Job ID: [id number]
--- NOTE | 2021-09-04 18:15 | Hospitalist Progress Note ---
Date of Service September 04, 2021 Assessment & Plan (1) Hip fracture: Plan: Acute closed non-displaced fracture of right femoral neck. Now s/p Right hip cemented bipolar arthroplasty on 09/[address] Ruby -continue pain control, increase bowel regimen for h/o severe constipation and post-op ileus--> made Miralax q6h scheduled, continue senna/docusate - AVOID PHENERGAN and METOCLOPRAMIDE with his Parkinson's disease -dc IVFs -needs to get Page out - PT/OT consultation-recommending inpatient rehab -hgb stable, continue to follow CBC, BMP tomorrow -WBAT, obey hip precautions x 6 weeks -f/u with Dr. Ruby in 2-3 weeks post-op (2) Parkinson disease: Plan: Follows at [facility], stable - Carbidopa/Levodopa 25/100- 3 tabs QID - Pramipexole 0.125 mg PO TID - Amantadine 100mg PO TID (3) Status post lumbar surgery: Plan: 06/13 s/p L5S1 fusion in 06/13 and removal of old hardware with revision - doing well at home per and patient (4) Prostate cancer: Plan: Hx of completed resection and radiation therapy (5) Hypertension: Plan: Previously was on Olmesartan discontinued secondary to hypotension BPs normal today (6) Vitamin D deficiency: Plan: Vit D level checked here and low at 23 start Vitamin D 1000 units once daily Plan DVT prophylaxis-SCDs, TEDS, ASA 81mg po bid x 6 weeks Dispo-medically stable for rehab placement, d/w CM--> [facility] obtaining auth from insurance, await placement Admission and Anticipated Discharge Date Admission Date: September 02, 2021 Subjective DOing well but could not sleep last night due to difficulty getting comfortable in bed and IV was beeping frequently. Is OOB to chair but required max assist x [address] Page in place. Not much pain in hip but is frustrated he is having trouble keeping his knee straight with standing. Denies CP, SOB., No BM yet but thinks maybe he could have one. No nausea, is eating well Review of Systems Review of Systems: All systems reviewed & are unremarkable except as noted in HPI & below Physical Exam Constitutional: WD/WN, vitals as above Eyes: + anicteric sclerae ENMT: external ear and nose normal, oropharynx normal Neck: trachea midline, no thyromegaly Respiratory: normal respiratory effort, lungs clear to auscultation Cardiovascular: RRR, no murmur, no edema Chest (Breasts): Chest: normal inspection of chest Gastrointestinal (Abdomen): normal bowel sounds, soft, nontender, no hepatosplenomegaly Musculoskeletal: Extremities: + extremities abnormal to inspection (hip with dressing in place), no cyanosis and no clubbing Skin: no rashes, warm and dry Neurologic: moves all extremities and awake; no focal motor deficits Psychiatric: A+Ox3, euthymic affect Results & Data Results & Data ([facility]) Vital Signs (Past 12 Hours) Vital Signs Temp Pulse Resp BP Pulse Ox O2 Del Method 09/04/21 15:37 36.8 C 79 20 118/76 93 Room Air 09/04/21 11:41 36.4 C L 86 18 106/69 93 Room Air 09/04/21 07:23 36.9 C 88 20 156/89 H 93 Room Air Laboratory Results 09/04/21 09/04/21 09/04/21 Range/Units 05:40 05:40 05:40 WBC 10.32 (4.8-10.8) K/ul RBC 5.00 (4.63-6.08) M/uL Hgb 14.5 (14.0-18.0) g/dl Hct 43.4 (40.1-51.0) % MCV 86.8 (80.0-100.0) fL MCH 29.0 (25.0-34.0) pg MCHC 33.4 (32.0-36.0) g/dL RDW Std Deviation 45.2 (36.4-46.3) fL RDW Coeff of Ashu 14.2 (11.5-14.5) % Plt Count 174 (130-400) K/uL MPV 10.2 (9.4-12.4) fL Immature Gran % (Auto) 0.4 % Neut % (Auto) 87.7 % Lymph % (Auto) 4.1 % [place] % (Auto) 7.1 % Eos % (Auto) 0.4 % Baso % (Auto) 0.3 % Neut # (Auto) 9.06 H (1.4-6.5) K/uL Lymph # (Auto) 0.42 L (1.2-3.4) K/uL [place] # (Auto) 0.73 (0.24-0.82) K/uL Eos # (Auto) 0.04 (0-0.50) K/uL Baso # (Auto) 0.03 (0-0.2) K/uL Immature Gran # (Auto) 0.04 H (0.00-0.02) K/uL Sodium 133 L (136-145) mmol/L Potassium 4.1 (3.5-5.1) mmol/L Chloride 102 (98-107) mmol/L Carbon Dioxide 24 (21-32) mmol/L Anion Gap 7 (3-11) BUN 16 (6-23) mg/dl Creatinine 0.92 (0.6-1.4) mg/dl Est Cr Clr Drug Dosing 108.5 ml/min Est GFR ( Amer) 98.7 ml/min Est GFR (Non-Af Amer) 85.2 ml/min BUN/Creatinine Ratio 17.4 (10-20) Glucose 98 (70-99(Fasting)) mg/dl POC Glucose (70-99) mg/dl Calcium 8.3 L (8.5-10.1) mg/dl Magnesium 1.9 (1.7-2.4) mg/dl 25-OH Vitamin D Total 23.3 L (30-100) ng/ml 09/03/21 Range/Units 20:35 WBC (4.8-10.8) K/ul RBC (4.63-6.08) M/uL Hgb (14.0-18.0) g/dl Hct (40.1-51.0) % MCV (80.0-100.0) fL MCH (25.0-34.0) pg MCHC (32.0-36.0) g/dL RDW Std Deviation (36.4-46.3) fL RDW Coeff of Ashu (11.5-14.5) % Plt Count (130-400) K/uL MPV (9.4-12.4) fL Immature Gran % (Auto) % Neut % (Auto) % Lymph % (Auto) % [place] % (Auto) % Eos % (Auto) % Baso % (Auto) % Neut # (Auto) (1.4-6.5) K/uL Lymph # (Auto) (1.2-3.4) K/uL [place] # (Auto) (0.24-0.82) K/uL Eos # (Auto) (0-0.50) K/uL Baso # (Auto) (0-0.2) K/uL Immature Gran # (Auto) (0.00-0.02) K/uL Sodium (136-145) mmol/L Potassium (3.5-5.1) mmol/L Chloride (98-107) mmol/L Carbon Dioxide (21-32) mmol/L Anion Gap (3-11) BUN (6-23) mg/dl Creatinine (0.6-1.4) mg/dl Est Cr Clr Drug Dosing ml/min Est GFR ( Amer) ml/min Est GFR (Non-Af Amer) ml/min BUN/Creatinine Ratio (10-20) Glucose (70-99(Fasting)) mg/dl POC Glucose 76 (70-99) mg/dl Calcium (8.5-10.1) mg/dl Magnesium (1.7-2.4) mg/dl 25-OH Vitamin D Total (30-100) ng/ml PG Care Time/CCT Total # of Minutes Spent Total Time Spent with Patient: Total time spent is greater than 50% in coordination of care (as documented) at patient's floor/unit and/or counseling patient: Coding Level of Care Code 04780 Subseq Hosp Care Lvl 2 Diagnoses Hip fracture S72.009A Parkinson disease G20 Status post lumbar surgery Z98.890 Prostate cancer C61 Hypertension I10 Vitamin D deficiency E55.9
[2021-09-04] MEDS: DOCUSATE SODIUM/SENNA 50/8.6MG TAB PO SCH (21:35)
[2021-09-04 22:51] VITALS: TEMP 98.1
[2021-09-05] MEDS: POLYETHYLENE (MIRALAX) 17 GM PACK PO SCH ×3 (01:07→12:02)
[2021-09-05 05:50] VITALS: BP 121/81; PULSE 70
[2021-09-05 07:11] LABS: Basophils # (auto) 0.03 K/uL (0-0.2); Basophils % (auto) 0.3 %; Hematocrit (blood only) 41.4 % (40.1-51.0); Hemoglobin 13.6 g/dl (14.0-18.0); Immature Granulocytes # (auto) 0.06 K/uL (0.00-0.02); Immature Granulocytes % (auto) 0.6 %; Lymphocytes # (auto) 0.48 K/uL (1.2-3.4); Lymphocytes % (auto) 4.8 %; Mean Corpuscular Hemoglobin 29.1 pg (25.0-34.0); Mean Corpuscular Hgb Conc 32.9 g/dL (32.0-36.0); Mean Corpuscular Volume 88.5 fL (80.0-100.0); Mean Platelet Volume 10.2 fL (9.4-12.4); Monocytes # (auto) 0.85 K/uL (0.24-0.82); Monocytes % (auto) 8.5 %; Neutrophils # (auto) 8.43 K/uL (1.4-6.5); Neutrophils % (auto) 84.8 %; Platelet Count 171 K/uL (130-400); RDW Coefficient of Variation 14.4 % (11.5-14.5); Red Blood Count 4.68 M/uL (4.63-6.08); White Blood Count 9.95 K/ul (4.8-10.8)
[2021-09-05 07:55] LABS: BUN Creatinine Ratio 18.8 (10-20); Calcium 8.3 mg/dl (8.5-10.1); Creatinine Clr Calc Pharmacy 89.1 ml/min; Est GFR (African American) 77.8 ml/min; Est GFR (Non-African American) 67.1 ml/min; Potassium 4.1 mmol/L (3.5-5.1)
--- NOTE | 2021-09-05 07:55 | Progress Notes ---
DATE OF SERVICE: 09/05/2021. SUBJECTIVE: A 70-year-old gentleman, postoperative day 2 from a right cemented bipolar hip arthropla sty for fracture. He is doing pretty well. Really not having much pain. Having had little difficul ty lifting his leg. OBJECTIVE: VITAL SIGNS: Temperature 36.7. Vital signs are stable. PHYSICAL EXAMINATION: GENERAL: Shows a pleasant middle-aged male. He is lying in bed, looks completely comfortable. EXTREMITIES: Examination of the right leg reveals the dressing to be clean, dry and intact. Thigh i s soft and supple. Hip is located. He is neurologically intact. LABORATORY DATA: Hemoglobin 13.6. Hematocrit 41.1. Electrolytes are pending. ASSESSMENT: A 70-year-old gentleman with underlying Parkinson's disease, postop day #2 from a right cemented bipolar hip arthroplasty for fracture. Orthopedically, he is doing well. Not unusual to real ve difficulty lifting leg for the first couple of weeks. His pain is controlled. Hip is located. H e is neurologically intact. PLAN: 1. DVT prophylaxis includes thigh-high TEDs, SCDs and we would recommend a baby aspirin twice a day for 6 weeks. 2. PT, OT, weightbear as tolerated. Right total hip protocol. 3. Pain control, doing well with current pain regimen. 4. Disposition: He is orthopedically okay for discharge any time medically stable. Any orthopedic questions can be directed to me at [phone]. Job ID: [id number]
[2021-09-05] MEDS: CARBIDOPA/LEVODOPA 25/100MG TAB PO SCH ×2 (08:15→12:02)
[2021-09-05] MEDS: CHOLECALCIFEROL 1,000 UNITS 25 MCG TAB PO SCH (08:15)
[2021-09-05] MEDS: AMANTADINE HCL 100 MG CAPSULE PO SCH ×2 (08:15→12:02)
[2021-09-05] MEDS: PRAMIPEXOLE DIHYDROCHLO 0.25 MG TAB PO SCH ×2 (08:16→12:02)
[2021-09-05] MEDS: ASPIRIN 81 MG ECTAB PO SCH (08:16)
--- NOTE | 2021-09-05 11:58 | Discharge Summary ---
Date of Service September 05, 2021 Admission HPI Per Admitting Provider 70 YOM with medical history of: Obesity, Parkinson's disease, HTN, Prostate Cancer (s/p prostatectomy and 38 cycles of radiation therapy), constipation, bilateral knee replacements, L5-S1 fusion. Patient comes to the [facility] today following a fall. The patient states he got out of his truck to put a box in the recycle bin where he then lost his balance to the left side. He started to stumble and fall and tried to catch himself by putting his hands on the front of his truck. This slowed his upper body down and he fell directly on to his right hip on pavement. He said he had pain with that but wasn't intense but he noted that he could not move his right leg without assisting it with his hand. The local refuse guys were in the neighborhood and came to help him up. He was unable to put weight on his leg and noted that when he did it hurt more and would not support him. He was placed in a chair and then brought to the hospital. In the [facility] the patient had routine labs performed, CXR, and Hip/pelvis plain films completed. He was given Morphine for pain. It was noted he had a right sided femoral neck fracture. He requested Dr. Ruby's orthopaedics group for his hip. Consultation has been placed for evaluation of surgical repair. He will be given tiered pain control, increase his bowel regimen with his parkinsonism, and NPO after midnight. Place Page for incontinence and ease of voiding without standing. For his Parkinson's disease, he follows with [facility]. He follows with them every 6 months. He seen a few months ago and no medication changes were made at that time and was to start an exercise program, which he was to start today. He denies any difficulty with breathing or having any chest pain or symptoms with activity. Does not use CPAP at night and is on no inhalers at home. Perioperative risk for perioperative IN or Cardiac arrest is 0.32%. Estimated risk of adverse outcome with non-cardiac surgery is Very Low risk with 0.4% estimated rate of IN, Pulmonary edema, v-fib, cardiac arrest. COVID test on admission is: Principal Diagnosis Right hip fracture, s/p right cemented bipolar arthroplasty Parkinson's Disease Discharge Exam Constitutional WD/WN, vitals as above Eyes + anicteric sclerae Neck trachea midline, no thyromegaly Respiratory normal respiratory effort, lungs clear to auscultation Cardiovascular RRR, no murmur, no edema Chest (Breasts) Chest: normal inspection of chest Gastrointestinal (Abdomen) normal bowel sounds, soft, nontender, no hepatosplenomegaly Musculoskeletal Extremities: + extremities abnormal to inspection (hip with dressing in place), no cyanosis and no clubbing Skin no rashes, warm and dry Neurologic moves all extremities and awake; no focal motor deficits Psychiatric A+Ox3, euthymic affect Lymphatic no lymphedema Discharge Data Allergies Allergy/AdvReac Type Severity Reaction Status Date / Time metoclopramide AdvReac Severe contraindicated Verified 09/03/21 13:52 due to parkinson med promethazine [From Phenergan] AdvReac Severe contraindicated Verified 09/03/21 13:53 due to parkinson med Consultations 09/02/21 16:18 ED Decision to Admit Stat 09/02/21 16:19 Consult Orthopedic Surgery Stat 09/02/21 19:18 Consult Orthopedic Surgery Routine Procedures Performed Operation Date: 09/03/21 08:05 Actual Procedures p Right Hip Hemiarthroplasty- cemented(Right) - Oscar Ruby MD Hospital Course (1) Hip fracture: Acute closed non-displaced fracture of right femoral neck. Now s/p Right hip cemented bipolar arthroplasty on 09/[address] Ruby Doing well, no longer wants to take any pain meds continue tylenol for mild-mod pain, oxycodone prn moderate-severe pain -continue bowel regimen for h/o severe constipation -continue senna/docusate, Miralax - AVOID PHENERGAN and METOCLOPRAMIDE with his Parkinson's disease - PT/OT consultation-recommending inpatient rehab -hgb stable -WBAT, obey hip precautions x 6 weeks -f/u with Dr. Ruby in 2-3 weeks post-op -ASA bid x 6 weeks, TEDs for DVT prophylaxis (2) Parkinson disease: Follows at [facility], stable - Carbidopa/Levodopa 25/100- 3 tabs QID - Pramipexole 0.125 mg PO TID - Amantadine 100mg PO TID (3) Status post lumbar surgery: 06/13 s/p L5S1 fusion in 06/13 and removal of old hardware with revision - doing well at home per and patient (4) Prostate cancer: Hx of completed resection and radiation therapy (5) Hypertension: Previously was on Olmesartan discontinued secondary to hypotension BPs normal (6) Vitamin D deficiency: Vit D level checked here and low at 23 start Vitamin D 1000 units once daily Plan DVT prophylaxis-SCDs, TEDS, ASA 81mg po bid x 6 weeks Dispo-medically stable for rehab placement, ok to [facility] today Total Time Total Time Spent Total Time Spent (In Minutes): 35 min Discharge Plan Discharge Items Patient Disposition: Transfer Inpatient Rehab Fac Reason For Visit: RIGHT FEMORAL NECK FRACTURE Discharge Diagnosis: Right Hip Replacement for Fracture Condition on Discharge: Fair Activity: As commented below Activity Comment: Follow/Obey hip precautions at all times. Weightbearing: Full weightbearing Weightbearing Comment: Weightbear as tolerated obeying hip precautions at all times. Non-emergency contact: Primary Care Provider and Surgeon Call non-emergency contact if: you have any medication questions, your symptoms worsen, your pain is worsening, your wound has increased redness, your wound has increased drainage and your wound pain has increased Follow-up/Referrals: Oscar Ruby MD [Physician] - (Orthopedic follow-up 2-3 weeks from surgery date.) Dionte Rodriges DO [Primary Care Provider] - Diet: Regular Addtl Attending Provider Instructions: ACTIVITY RECOMMENDATIONS: Physical Therapy: * Aggressive physical therapy is not usually needed. You will learn to take care of yourself safely and walk. * Follow the "Hip Precautions Instructions." * In some cases, the child protective services social worker at the hospital will arrange to have a therapist come to your house for the first couple of weeks to help you learn these s kills. * You need to practice on your own or with the help of a family member as needed. * When you learn these skills, most of the therapy can be done on your own. Home Exercise: * You were shown a series of exercises in the hospital. Do these exercises three to four times each day including the exercises you were shown in physical therapy. Walking: * Get up and walk several times each day. For the first four weeks, try not to stand or walk for more than one hour at a time. If you do stand or walk for more than one hour, you will not hurt anything, but your leg will likely swell. * As you feel comfortable, you may change from the walker or crutches to a cane and then to independent walking. MEDICATIONS: New Medicine: * You will likely be taking one or more of these medicines: 1. Tramadol - Take, as directed, when you need it, every six hours to control your pain. 2. Aspirin - Thins your blood to lessen the chance of forming a blood clot. * The most common side effects of pain medicine and iron are nausea and constipation. If nausea or constipation is too much of a problem or if you have any questions about your new medicines or doses, call [facility] at [phone]. We will try to help you manage these issues. "VERY IMPORTANT TO READ AND REVIEW" Pain: * The immediate post-operative period after hip replacement surgery is often quite painful. * You are given a prescription for pain medicine. You should take it, as directed, when you need it, especially before physical therapy and before going to bed. Pain that interferes with sleep is very common and can last several months. * You will likely need pain medicine for the first two to four weeks. It will not stop all of the pain. The pain will lessen and as you feel better, you may change to milder pain medicine such as Tylenol. * The most common side effects of pain medicine are nausea and constipation, so don't take more than you need. SPECIAL CARE INSTRUCTIONS: TEDs/Elastic Stockings: * The white elastic stockings help limit swelling and prevent blood clots from forming in your legs. The more you wear them, the more they work. * Wear them for six weeks. Incision Site Care: * Remove dressing postoperative day 2 and then shower. Keep direct shower pressure off the incision site. * After showering, cover joaquim with dry gauze and change daily or more frequently if the dressing is getting saturated with drainage. * May completely stop using bandage if wound is dry and no drainage * Joaquim are removed between 2 and 3 weeks post-op. If your follow-up appointment is made before 2 weeks, please have your appointment re- scheduled. It is too early to remove the joaquim. Prevention of Infection: * Take antibiotics one hour before any dental cleaning, dental work, urological procedure, gastrointestinal procedure or any invasive surgery in order to prevent your new joint from getting infected. * You may get the antibiotics from the doctor performing the procedure or you may call our office at before and we will call in a prescription to the pharmacy of your choice. Things to Watch For: * Drainage from the incision site that occurs more than one week after your surgery. * Severely increased leg pain or swelling. * Increased redness at the incision site. * Fever above 102 degrees Fahrenheit. * Unusual chest pain or shortness of breath. * Unusual pain or burning with urination. Call [facility] at with any of the above problems or if you have any questions about your medicines or recovery. FOLLOW UP VISIT: Make an appointment to see your doctor for approximately two weeks after surgery for a progress check and staple removal by calling the office at . Pending Studies at Discharge: Yes (Pathology-from hip surgery) Stand-Alone Forms: My [facility] Skilled Items Patient informed of condition?: Yes DNR: No Discharge Level of Care: Acute rehab Communicable Disease: No Discharge Prognosis: Improving Lines: None Urinary Catheter: No Medications and DC Order Prescriptions: New oxycodone 5 mg Tablet 5 mg PO Q4H PRN (Reason: moderate-severe pain) Qty: 15 0RF sennosides-docusate sodium [Senokot-S] 8.6-50 mg Tablet 2 tab PO HS Qty: 60 0RF cholecalciferol (vitamin D3) 25 mcg (1,000 unit) Capsule 1,000 unit PO QAM Qty: 30 0RF acetaminophen 325 mg Tablet 650 mg PO Q6H PRN (Reason: mild-moderate pain) Qty: 60 0RF aspirin 81 mg Tablet,Delayed Release (Dr/Ec) 81 mg PO BID Qty: 80 0RF Continued amantadine HCl 100 mg tablet 100 mg PO TID Rx Instructions: TAKES AT 0800, 1200, & 1700 carbidopa-levodopa [Sinemet] 25-100 mg tablet See Rx Instructions .ROUTE .COMPLEX Qty: 360 0RF Rx Instructions: TAKES 3 TABS QID @ 0800, 1200, 1700, & 2200. pramipexole 0.5 mg tablet 0.25 mg PO TID Qty: 90 0RF Rx Instructions: TAKES 0800, 1200 & 1700 Changed docusate sodium [Colace] 100 mg Capsule 100 mg PO BID Qty: 60 0RF polyethylene glycol 3350 [Miralax] 17 gram/dose Powder 17 g PO DAILY Qty: 119 0RF Discharge Orders: Discharge Order (Routine); Ordered 09/05/21 Ordered By: Fatna Child Admission Data Admit Date/Time: 09/02/21 16:18 Attending Provider: Fanta Child Admit Provider: Low [place] Primary Care Provider: Dionte Rodriges Other Providers: Oscar Ruby ; [facility] ; [place] Coding Level of Care Code D/C DAY MANAGEMENT >30 MINS Diagnoses Hip fracture S72.009A Parkinson disease G20 Status post lumbar surgery Z98.890 Prostate cancer C61 Hypertension I10 Vitamin D deficiency E55.9
[2021-09-05] MEDS ORDERED: POLYETHYLENE (MIRALAX) 17 GM PACK PO SCH (18:00)
== END 2021-09-05 14:11 | DRG 522 ==
LOC: ED 14:37 → 3E 16:18 → SUATTDRO 16:18 → 3E 18:43